=== PATIENT | female | born 1990 | race African-American/Black ===

== ENCOUNTER 2016-08-17 15:33 | Emergency (ER) | payer OTHER ==
[~2016-08-17] VITALS: Ht 154.9 cm; Wt 64.0 kg
[~2016-08-17 15:33] MED LIST: DOCU-27 PO; IBUP-1060 PO; NITR100C62 PO; OXYC-323 PO
--- NOTE | 2016-08-17 17:09 | RAD ---
Chest, 2 views, 08/17/2016: History: Pain The heart size and pulmonary vascularity are normal. No pulmonary infiltrates are seen. There is no evidence of pleural fluid. IMPRESSION: No acute cardiopulmonary abnormality is detected. Cervical spine, 3 views, 08/17/2016: No fracture or dislocation is identified. The intervertebral disc spaces are well-maintained. The prevertebral soft tissues are unremarkable. IMPRESSION: No significant cervical spine abnormality is detected.
[2016-08-17] MEDS ORDERED: CYCL10TA2 PO (17:26)
[2016-08-17] MEDS ORDERED: NAPR500T8 PO (17:26)
--- NOTE | 2016-08-17 17:27 | PHYS DOC ---
Past Medical History Past Medical History: No Pertinent History, STD Additional Past Medical Histor: gonorrhea Past Surgical History: , Tonsillectomy Alcohol Use: Occasionally Drug Use: None Adult General Chief Complaint Chief Complaint: BREAST PROBLEM HPI HPI Patient is a 26 year old female with no significant medical history who presents today with intermittent bilateral anterior neck pain and upper breast pain that has been going on for months. Patient denies anything exacerbating or making the pain worse or better. She states she is in the ED today to be checked out to make sure she does not have cancer to her neck or breast. Informed patient she may need to get mammograms of her breast if she is concerned about breast cancer. Informed patient that the most we have in the ED is probably a cervical spine x-ray which exposes her to radiation and cancer as well as a chest x-ray which does the same thing in terms of exposing her to cancer. Patient is requesting x-rays. Review of Systems Review of Systems Constitutional: Denies fever or chills [] Eyes: Denies change in visual acuity, redness, or eye pain [] HENT: Denies nasal congestion or sore throat [] Respiratory: Denies cough or shortness of breath [] Cardiovascular: No additional information not addressed in HPI [] GI: Denies abdominal pain, nausea, vomiting, bloody stools or diarrhea [] : Denies dysuria or hematuria [] Musculoskeletal: neck pain Integument:breast pain Neurologic: Denies headache, focal weakness or sensory changes [] Endocrine: Denies polyuria or polydipsia [] Allergies Allergies Allergies Coded Allergies Type Severity Reaction Last Updated Verified No Known Drug Allergies 11/22/14 No Physical Exam Physical Exam Constitutional: Well developed, well nourished, no acute distress, non-toxic appearance. [] HENT: Normocephalic, atraumatic, bilateral external ears normal, oropharynx moist, no oral exudates, nose normal. [] Eyes: PERRLA, EOMI, conjunctiva normal, no discharge. [] Neck: Normal range of motion, no tenderness, supple, no stridor. [] Cardiovascular:Heart rate regular rhythm, no murmur [] Lungs & Thorax: Bilateral breath sounds clear to auscultation [] Abdomen: Bowel sounds normal, soft, no tenderness, no masses, no pulsatile masses. [] Skin: Warm, dry, no erythema, no rash. [] Back: No tenderness, no CVA tenderness. [] Extremities: No tenderness, no cyanosis, no clubbing, ROM intact, no edema. [] Neurologic: Alert and oriented X 3, normal motor function, normal sensory function, no focal deficits noted. [] Psychologic: Affect normal, judgement normal, mood normal. [] Current Patient Data Vital Signs Vital Signs Date Time Temp Pulse Resp B/P Pulse Ox O2 Delivery O2 Flow Rate FiO2 08/17/16 16:12 97.7 100 16 98 Room Air 97.7 Lab Values Laboratory Tests Test 08/17/16 15:34 POC Urine HCG, Qualitative Hcg negative (Negative) EKG EKG [] Radiology/Procedures Radiology/Procedures [] Course & Med Decision Making Course & Med Decision Making Pertinent Labs and Imaging studies reviewed. (See chart for details) Patient is in the ED complaining of intermittent episodes of neck and breast pain. She would like to be checked for cancer. Informed patient we do not have any testing for cancer in the ED especially mammograms. 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 She is requesting x-rays of her neck and chest. Informed that the risk of x-rays in terms of exposing her to cancer. Patient is still requesting x-rays. Chest x-ray and cervical spine x-rays were done which were negative for any acute findings. Negative urine hCG. She is provided an OB/ [facility] doctor Fox and PCP list for follow up Marii Disclaimer Dragon Disclaimer This electronic medical record was generated, in whole or in part, using a voice recognition dictation system. Departure Departure Impression: Primary Impression: Neck pain, bilateral Additional Impression: Painful breasts Disposition: HOME, SELF-CARE Condition: STABLE Referrals: NO PCP (PCP) NO BRAXTON Jr, MD follow up with Dr. Braxton in one week and a primary care doctor Patient Instructions: Breast Tenderness Additional Instructions: You were seen for neck and breast pain. We highly recommend you follow-up with her primary care doctor for the neck pain and a primary care doctor for the breast pain. X-rays of your neck and chest were negative today. If you are concerned about cancer in the breast you need to see Dr. Braxton and he will order mammogram of the breast and a Primary care doctor for neck pain Scripts Naproxen 500 Mg Tablet.isis Tab PO BID #60 TAB Ref 1 Prov:KB SLATER APRN 08/17/16 Cyclobenzaprine Hcl 10 Mg Tablet1 Tab PO TID #30 TAB Prov:KB SLATER APRN 08/17/16 Problem Qualifiers KB SLATER APRN August 17, 2016 17:27
[2016-08-17 17:32] VITALS: BP 111/60
== END 2016-08-17 17:32 | disposition home or self-care (01) ==
LOC: ER 15:33
DX: M54.2 Cervicalgia (principal); N64.4 Mastodynia
CPT/HCPCS: 71020; 72040; 81025; 84703; 99284-25

== ENCOUNTER 2016-09-09 08:36 | Emergency (ER) | payer OTHER ==
[~2016-09-09] VITALS: Ht 154.9 cm; Wt 64.0 kg
[~2016-09-09 08:36] MED LIST changes: +CYCL10TA2 PO; +NAPR500T8 PO
[2016-09-09 08:42] VITALS: BP 116/67
[2016-09-09 08:58] LABS: BILIRUBIN,URINE NEGATIVE (NEG); GLUCOSE,URINE NEGATIVE (NEG); NITRITE,URINE NEGATIVE (NEG); PH,URINE 5.5; PROTEIN,URINE 30 mg/dL (NEG-TRACE); UROBILINOGEN,URINE 0.2 mg/dL (0.2 mg/dL)
--- NOTE | 2016-09-09 09:07 | PHYS DOC ---
Past Medical History Past Medical History: STD Additional Past Medical Histor: gonorrhea Past Surgical History: , Tonsillectomy Alcohol Use: Heavy Drug Use: None Adult General Chief Complaint Chief Complaint: ABDOMINAL PAIN HPI HPI Patient is a 26 year old female presents to the emergency department stating that she is having bilateral lower pelvic abdominal pain. She states that she started her menstrual cycle 2 days ago. She states this pain is very painful and discomfort involving although has not taken anything for the pain. She states the pain started this Tuesday when she was at work. She states that her boss should've called an ambulance because the pain is severe. Patient denies any urinary frequency urgency pain with urination. She denies any vaginal discharge other than her menstrual cycle. She does state that she is sexually active with one partner. Patient states that she has had STDs in the past, gonorrhea, Trichomonas. Patient denies any nausea vomiting she denies any urinary symptoms. Denies fever, or chills. Review of Systems Review of Systems Constitutional: Denies fever or chills [] Eyes: Denies change in visual acuity, redness, or eye pain [] HENT: Denies nasal congestion or sore throat [] Respiratory: Denies cough or shortness of breath [] Cardiovascular: No additional information not addressed in HPI [] GI:lower pelvic/abdominal pain, denies nausea, vomiting, bloody stools or diarrhea [] : Denies dysuria or hematuria [] Musculoskeletal: Denies back pain or joint pain [] Integument: Denies rash or skin lesions [] Neurologic: Denies headache, focal weakness or sensory changes [] Endocrine: Denies polyuria or polydipsia [] Current Medications Current Medications Current Medications Medications (Trade) Dose Ordered Sig/[facility] Start Time Stop Time Status Last Admin Dose Admin Azithromycin (Zithromax) 1,000 mg 1X ONCE 09/09/16 10:00 09/09/16 10:01 DC Ceftriaxone Sodium (Rocephin Im) 250 mg 1X ONCE 09/09/16 10:00 09/09/16 10:01 DC Metronidazole (Flagyl) 2,000 mg 1X ONCE 09/09/16 10:00 09/09/16 10:01 DC Naproxen (Naprosyn) 500 mg 1X ONCE 09/09/16 09:15 09/09/16 09:16 DC 09/09/16 09:23 500 MG Allergies Allergies Allergies Coded Allergies Type Severity Reaction Last Updated Verified No Known Drug Allergies 11/22/14 No Physical Exam Physical Exam Constitutional: Well developed, well nourished, no acute distress, non-toxic appearance. [] HENT: Normocephalic, atraumatic, bilateral external ears normal, oropharynx moist, no oral exudates, nose normal. [] Eyes: PERRLA, EOMI, conjunctiva normal, no discharge. [] Neck: Normal range of motion, no tenderness, supple, no stridor. [] Cardiovascular:Heart rate regular rhythm, no murmur [] Lungs & Thorax: Bilateral breath sounds clear to auscultation [] Abdomen: Bowel sounds hypoactive soft, bilateral lower abdominal tenderness, no masses, no pulsatile masses. [] Skin: Warm, dry, no erythema, no rash. [] Back: No tenderness Extremities: No tenderness, no cyanosis, no clubbing, ROM intact, no edema. [] Neurologic: Alert and oriented X 3, normal motor function, normal sensory function, no focal deficits noted. [] Psychologic: Affect normal, judgement normal, mood normal. [] Vaginal exam: speculum exam minimal to scant bleeding in the vaginal vault. Manual exam: bilateral adnexal tenderness noted. No CMT noted. Current Patient Data Vital Signs Vital Signs Date Time Temp Pulse Resp B/P (MAP) Pulse Ox O2 Delivery O2 Flow Rate FiO2 09/09/16 08:42 97.5 88 18 116/67 (83) 99 Room Air 97.5 Lab Values Laboratory Tests Test 09/09/16 08:10 Urine Collection Type Unknown Urine Color Yellow Urine Clarity Cloudy Urine pH 5.5 Urine Specific [place] 1.025 Urine Protein 30 mg/dL (NEG-TRACE) Urine Glucose (UA) Negative mg/dL (NEG) Urine Ketones (Stick) Negative mg/dL (NEG) Urine Blood Large (NEG) Urine Nitrite Negative (NEG) Urine Bilirubin Negative (NEG) Urine Urobilinogen Dipstick 0.2 mg/dL (0.2 mg/dL) Urine Leukocyte Esterase Moderate (NEG) Urine RBC Tntc /HPF (0-2) Urine WBC 5-10 /HPF (0-4) Urine Squamous Epithelial Cells Mod /LPF Urine Bacteria Mod /HPF (0-FEW) Urine Mucus Mod /LPF Microbiology 09/09/16 Wet Prep - Final, Complete EKG EKG [] Radiology/Procedures Radiology/Procedures [] Course & Med Decision Making Course & Med Decision Making Pertinent Labs and Imaging studies reviewed. (See chart for details) Patients urine was positive for urinary tract infection. However was contaminated she will still be placed on antibiotics. Patient's wet prep was positive for Trichomonas. Patient states she was also concern for sexual transmitted infections. She was treated with Rocephin, Flagyl and Zithromax here in the emergency department. Patient will be discharged home with doxycycline as well as she has bilateral adnexal tenderness. We'll be treating her for PID. Patient will be discharged home in stable condition with signs and symptoms to return back to emergency department. Patient was instructed to refrain from sexual intercourse for the next 2 weeks. She was also instructed to use condoms whenever having sexual intercourse to prevent sexually transmitted infections. Patient will be provided with a prescription for naproxen in which she can take for pain and discomfort. [] Dragon Disclaimer Dragon Disclaimer This electronic medical record was generated, in whole or in part, using a voice recognition dictation system. Departure Departure Impression: Primary Impression: Trichomonas infection Additional Impressions: UTI (urinary tract infection) PID (acute pelvic inflammatory disease) Disposition: 01 HOME, SELF-CARE Condition: STABLE Referrals: NO PCP (PCP) Patient Instructions: Pelvic Inflammatory Disease, [id number], Sexually Transmitted Disease, [id number], Trichomoniasis-Brief, Urinary Tract Infection , [id number] Additional Instructions: Activity as tolerated Medications as prescribed Naproxen should be taken with food to prevent upset stomach Refrain from sexual intercourse for 2 weeks Use condoms when having sex this will prevent sexually transmission infections Drink plenty of fluids such as water and cranberry juice Avoid cranberry juice cocktail, carbonated beverages, caffeine, alcohol and citrus fruits as these are considered irritants to the bladder You should contact you sexual partner and let him know that you are being treated for sexual transmitted infections and he needs to be treated as well. You will need to wait to have sex with him for 2 weeks after he has been treated Followup with primary care provider in 7-10 days Return to emergency department as needed for signs and symptoms that become worse. Scripts Doxycycline Hyclate (DOXYCYCLINE HYCLATE) 100 Mg Capsule 1 CAP PO BID, #28 CAP Prov: ADARSH CHARLES APRN 09/09/16 Nitrofurantoin Monohyd/M-Cryst (MACROBID 100 MG CAPSULE) 100 Mg Capsule 1 CAP PO BID, #14 CAP Prov: ADARSH CHARLES APRN 09/09/16 Naproxen (NAPROXEN) 500 Mg Tablet 1 TAB PO BID, #60 TAB Prov: ADARSH CHARLES APRN 09/09/16 Problem Qualifiers ADARSH CHARLES APRN September 09, 2016 09:07
[2016-09-09 09:15] LABS: BACTERIA,URINE MOD /HPF (0-FEW); RBC,URINE TNTC /HPF (0-2); SQUAMOUS EPITHELIAL CELL,UR MOD /LPF
[2016-09-09] MEDS ORDERED: NAPROXEN 500 MG TABLET PO ONE (09:15)
[2016-09-09] MEDS ORDERED: cefTRIAXone IM 250 MG VIAL IM ONE (10:00)
[2016-09-09] MEDS ORDERED: metroNIDAZOLE 500 MG TABLET PO ONE (10:00)
[2016-09-09] MEDS ORDERED: AZITHROMYCIN 250 MG TABLET. PO ONE (10:00)
[2016-09-09] MEDS ORDERED: NAPR500T3 PO (10:11)
[2016-09-09] MEDS ORDERED: NITR100C62 PO (10:11)
[2016-09-09] MEDS ORDERED: DOXY100C2 PO (10:12)
== END 2016-09-09 10:20 | disposition home or self-care (01) ==
LOC: ER 08:36
DX: N73.9 Female pelvic inflammatory disease, unspecified (principal); N39.0 Urinary tract infection, site not specified; A59.9 Trichomoniasis, unspecified
CPT/HCPCS: 81001; 87491; 87591; 96372; 99284; J0696; Q0111; Q0144

== ENCOUNTER → 2017-01-27 | Outpatient (CLI) | payer OTHER ==
[~2017-01-27] MED LIST changes: +DOCU-109 PO; -DOCU-27 PO; +DOXY100C2 PO; +NAPR500T4 PO
--- NOTE | 2017-01-27 15:46 | RAD ---
Indication size and date discrepancy. Obstetrical ultrasound examination was performed. No prior pelvic ultrasound examination is available associated with this . There is a single, viable, IUP. heart rate of 157 was documented. The biparietal diameter of 4.4 cm, head circumference of 16.7 cm, abdominal circumference of 14.4 cm and femoral length of 3.5 cm are compatible with a gestational age of approximately 20 weeks. By sonographic analysis the expected date of confinement is 06/16/2012. The estimated weight is approximately 340 g.. Current presentation is variable. The amount of amniotic fluid appears normal. The placenta is predominantly anterior. The cervical length is estimated at approximately 3.5 cm. There was a 4 chambered heart. The spine appeared normal. There was a three-vessel cord. The kidneys urinary bladder and extremities appeared grossly normal. No definite anomalies were seen.. IMPRESSION: Single viable intrauterine fetus of approximately 20 weeks gestation.
== END | disposition home or self-care (01) ==
LOC: US 15:11
PROVIDERS: ATTEND Obstetrics & Gynecology
DX: O26.842 Uterine size-date discrepancy, second trimester (principal); Z3A.20 20 weeks gestation of pregnancy
CPT/HCPCS: 76805

== ENCOUNTER 2017-02-06 12:36 | Observation (INO) | payer OTHER ==
[2017-02-06] MEDS ORDERED: IV RINGERS,LACTATED 500ML 500 ML IV PRN (13:00)
[2017-02-06 13:25] LABS: BARBITURATES NEG (NEG); BENZODIAZEPINES NEG (NEG); CANNABINOIDS NEG (NEG); COCAINE NEG (NEG); METHADONE NEG (NEG); OPIATES NEG (NEG); PHENCYCLIDINE NEG (NEG)
[2017-02-06 13:25] LABS: BILIRUBIN,URINE NEGATIVE (NEG); GLUCOSE,URINE NEGATIVE (NEG); NITRITE,URINE NEGATIVE (NEG); PH,URINE 6.5; PROTEIN,URINE NEGATIVE (NEG-TRACE)
[2017-02-06 13:26] LABS: BACTERIA,URINE FEW /HPF (0-FEW); SQUAMOUS EPITHELIAL CELL,UR MANY /LPF
== END 2017-02-06 14:15 | disposition home or self-care (01) ==
LOC: 3 SO LND 12:36
PROVIDERS: ADMIT Obstetrics & Gynecology; ATTEND Obstetrics & Gynecology
DX: O46.92 Antepartum hemorrhage, unspecified, second trimester (principal); O26.892 Other specified pregnancy related conditions, second trimester; R10.9 Unspecified abdominal pain; Z3A.21 21 weeks gestation of pregnancy
CPT/HCPCS: 80307; 81001; 87086; G0378; G0379; G0479

== ENCOUNTER 2017-04-03 09:56 | Observation (INO) | payer OTHER ==
[2017-04-03 11:33] LABS: BILIRUBIN,URINE NEGATIVE (NEG); GLUCOSE,URINE NEGATIVE (NEG); NITRITE,URINE NEGATIVE (NEG); PH,URINE 7.5; PROTEIN,URINE NEGATIVE (NEG-TRACE); UROBILINOGEN,URINE 0.2 mg/dL (0.2 mg/dL)
[2017-04-03 11:36] LABS: SQUAMOUS EPITHELIAL CELL,UR MANY /LPF
[2017-04-03 11:37] LABS: BACTERIA,URINE MANY /HPF (0-FEW); RBC,URINE 0 /HPF (0-2); WBC,URINE 20-40 /HPF (0-4)
== END 2017-04-03 12:12 | disposition home or self-care (01) ==
LOC: 3 SO LND 09:56
PROVIDERS: ADMIT Obstetrics & Gynecology; ATTEND Obstetrics & Gynecology
DX: O62.9 Abnormality of forces of labor, unspecified (principal); Z3A.29 29 weeks gestation of pregnancy
CPT/HCPCS: 81001; 87086; G0378; G0379

== ENCOUNTER → 2017-04-13 | Outpatient (CLI) | payer OTHER | END | disposition home or self-care (01) | LOC: LAB 09:41 | PROVIDERS: ATTEND Obstetrics & Gynecology | DX: O09.90 Supervision of high risk pregnancy, unspecified, unspecified trimester (principal); Z3A.00 Weeks of gestation of pregnancy not specified | CPT/HCPCS: 36415; 82947; 82950 ==

== ENCOUNTER 2018-01-14 14:16 | Emergency (ER) | payer OTHER ==
[~2018-01-14] VITALS: Ht 157.5 cm; Wt 65.3 kg
[~2018-01-14 14:16] MED LIST changes: +NAPR-514 PO; -NAPR500T4 PO
[2018-01-14 14:30] VITALS: BP 109/58
[2018-01-14] MEDS ORDERED: PRED50TA PO (15:09)
[2018-01-14] MEDS ORDERED: AMOX500T PO (15:09)
--- NOTE | 2018-01-14 15:09 | PHYS DOC ---
Past Medical History Past Medical History: STD Additional Past Medical Histor: gonorrhea, herpes Past Surgical History: , Tonsillectomy Alcohol Use: Heavy Drug Use: None Adult General Chief Complaint Chief Complaint: SORE THROAT HPI HPI Patient is a 27 year old female who presents with sore throat and bilateral ear ringing since yesterday. Patient denies any fever coughing or congestion. Review of Systems Review of Systems Constitutional: Denies fever or chills [] Eyes: Denies change in visual acuity, redness, or eye pain [] HENT: Reports sore throat. Reports bilateral ear ringing. Denies nasal congestion Respiratory: Denies cough or shortness of breath [] Cardiovascular: No additional information not addressed in HPI [] GI: Denies abdominal pain, nausea, vomiting, bloody stools or diarrhea [] : Denies dysuria or hematuria [] Musculoskeletal: Denies back pain or joint pain [] Integument: Denies rash or skin lesions [] Neurologic: Denies headache, focal weakness or sensory changes [] All other systems were reviewed and found to be within normal limits, except as documented in this note. Allergies Allergies Allergies Coded Allergies Type Severity Reaction Last Updated Verified No Known Drug Allergies 11/22/14 No Physical Exam Physical Exam Constitutional: Well developed, well nourished, no acute distress, non-toxic appearance. [] HENT: Normocephalic, atraumatic, bilateral external ears normal, oropharynx moist, no oral exudates, nose normal. [] Bilateral ear canals with mild cerumen, both TMs can be visualized. The left arm appears erythematous, the right one is also erythematous. Small amount of fluid in the left TM. Eyes: PERRLA, EOMI, conjunctiva normal, no discharge. [] Neck: Normal range of motion, no tenderness, supple, no stridor. [] Cardiovascular:Heart rate regular rhythm, no murmur [] Lungs & Thorax: Bilateral breath sounds clear to auscultation [] Abdomen: Bowel sounds normal, soft, no tenderness, no masses, no pulsatile masses. [] Skin: Warm, dry, no erythema, no rash. [] Back: No tenderness, no CVA tenderness. [] Extremities: No tenderness, no cyanosis, no clubbing, ROM intact, no edema. [] Neurologic: Alert and oriented X 3, normal motor function, normal sensory function, no focal deficits noted. [] Psychologic: Affect normal, judgement normal, mood normal. [] Current Patient Data Vital Signs Vital Signs Date Time Temp Pulse Resp B/P (MAP) Pulse Ox O2 Delivery O2 Flow Rate FiO2 01/14/18 14:30 98.3 110 20 109/58 (75) 97 Room Air 98.3 EKG EKG [] Radiology/Procedures Radiology/Procedures [] Course & Med Decision Making Course & Med Decision Making Pertinent Labs and Imaging studies reviewed. (See chart for details) Patient has acute pharyngitis and otitis media. Will be discharged with amoxicillin for 10 days. Tylenol/ Motrin for pain or fever. Saltwater gargles also recommended. Follow-up with primary care doctor in 1-2 weeks as needed. Dragon Disclaimer Dragon Disclaimer This electronic medical record was generated, in whole or in part, using a voice recognition dictation system. Departure Departure Impression: Primary Impression: Otitis media Additional Impressions: Acute pharyngitis Cerumen impaction Disposition: 01 HOME, SELF-CARE Condition: STABLE Referrals: NO PCP (PCP) Follow-up in 1-2 weeks Patient Instructions: Cerumen Impaction-SportsMed, Otitis Media, Adult, Viral and Bacterial Pharyngitis Additional Instructions: You were seen for an ear and throat infection. Ensure you complete your antibiotics. Take Tylenol/ Motrin for pain or fever. Also complete your prednisone. Use [id number] cerumen removal a stapleton Debrox to remove the earwax in your ears. Scripts Amoxicillin (AMOXICILLIN) 500 Mg Tablet 1 TAB PO TID, #30 TAB Prov: MUTELICIAAKB DATA COMPILER 01/14/18 Prednisone (PREDNISONE) 50 Mg Tablet 1 TAB PO DAILY, #5 TAB Prov: MUTUNGAKB DATA COMPILER 01/14/18 Problem Qualifiers Primary Impression: Otitis media Otitis media type: other nonsuppurative Chronicity: acute Laterality: bilateral Recurrence: not specified as recurrent Qualified Codes: H65.193 - Other acute nonsuppurative otitis media, bilateral Additional Impressions: Acute pharyngitis Pharyngitis/tonsillitis etiology: unspecified etiology Qualified Codes: J02.9 - Acute pharyngitis, unspecified Cerumen impaction Laterality: bilateral Qualified Codes: H61.23 - Impacted cerumen, bilateral MUTUNGA,KB OBRIEN Jan 14, 2018 15:09
== END 2018-01-14 15:20 | disposition home or self-care (01) ==
LOC: ER 14:16
DX: J02.9 Acute pharyngitis, unspecified (principal); H61.23 Impacted cerumen, bilateral; H66.93 Otitis media, unspecified, bilateral
CPT/HCPCS: 99283

== ENCOUNTER 2018-01-27 09:58 | Emergency (ER) | payer OTHER ==
[~2018-01-27] VITALS: Ht 157.5 cm; Wt 65.3 kg
[~2018-01-27 09:58] MED LIST changes: +AMOX500T PO; +PRED50TA PO
[2018-01-27 10:05] VITALS: BP 109/58
[2018-01-27] MEDS ORDERED: HYDROcodone/APAP 5/325MG 1 TAB TABLET PO ONE (10:30)
[2018-01-27] MEDS ORDERED: IBUPROFEN 600 MG TABLET. PO ONE (10:30)
[2018-01-27] MEDS ORDERED: LIDOCAINE 1% PF 2 ML VIAL. INJ ONE (10:30)
[2018-01-27] MEDS ORDERED: HYDR-971 PO (10:42)
[2018-01-27] MEDS ORDERED: SULF1TAB24 PO (10:42)
--- NOTE | 2018-01-27 10:45 | PHYS DOC ---
Past Medical History Past Medical History: STD Additional Past Medical Histor: gonorrhea, herpes Past Surgical History: , Tonsillectomy Alcohol Use: Heavy Drug Use: None Adult General Chief Complaint Chief Complaint: ABSCESS HPI HPI 27-year-old female presents to ER with complaints of possible abscess on rt side buttock which started 2 days ago and gradually worsened. Patient is fever or chills, nausea or vomiting, change in bowel pattern, or urinary symptoms. Patient denies any [id number] medications today for pain. Pt denies continence of bowel or bladder, saddle anesthesia, or numbness and tingling in bilateral lower extremities. Review of Systems Review of Systems Constitutional: Denies fever or chills [] Eyes: Denies change in visual acuity, redness, or eye pain [] HENT: Denies nasal congestion or sore throat [] Respiratory: Denies cough or shortness of breath [] Cardiovascular: No additional information not addressed in HPI [] GI: Denies abdominal pain, nausea, vomiting, bloody stools or diarrhea [] : Denies dysuria or hematuria [] Musculoskeletal: Denies back pain or joint pain [] Integument: Denies rash or skin lesions [] Neurologic: Denies headache, focal weakness or sensory changes [] Endocrine: Denies polyuria or polydipsia [] All other systems were reviewed and found to be within normal limits, except as documented in this note. Current Medications Current Medications Current Medications Medications (Trade) Dose Ordered Sig/Carl Start Time Stop Time Status Last Admin Dose Admin Acetaminophen/ Hydrocodone Bitart (Lortab 5/325) 1 tab 1X ONCE 01/27/18 10:30 01/27/18 10:31 DC 01/27/18 10:29 1 TAB Ibuprofen (Motrin) 600 mg 1X ONCE 01/27/18 10:30 01/27/18 10:31 DC 01/27/18 10:28 600 MG Lidocaine HCl (Xylocaine-Mpf 1% 2ml Vial) 4 ml 1X ONCE 01/27/18 10:30 01/27/18 10:31 DC 01/27/18 10:28 4 ML Allergies Allergies Allergies Coded Allergies Type Severity Reaction Last Updated Verified No Known Drug Allergies 11/22/14 No Physical Exam Physical Exam Constitutional: Well developed, well nourished, no acute distress, non-toxic appearance. [] HENT: Normocephalic, atraumatic, bilateral external ears normal, oropharynx moist, no oral exudates, nose normal. [] Eyes: PERRLA, EOMI, conjunctiva normal, no discharge. [] Neck: Normal range of motion, no tenderness, supple, no stridor. [] Cardiovascular:Heart rate regular rhythm, no murmur [] Lungs & Thorax: Bilateral breath sounds clear to auscultation [] Abdomen: Bowel sounds normal, soft, no tenderness, no masses, no pulsatile masses. [] Skin: Warm, dry, no erythema, no rash. [] Back: No tenderness, no CVA tenderness. [] Extremities: No tenderness, no cyanosis, no clubbing, ROM intact, no edema. [] Neurologic: Alert and oriented X 3, normal motor function, normal sensory function, no focal deficits noted. [] Psychologic: Affect normal, judgement normal, mood normal. [] Current Patient Data Vital Signs Vital Signs Date Time Temp Pulse Resp B/P (MAP) Pulse Ox O2 Delivery O2 Flow Rate FiO2 01/27/18 10:05 97.6 110 20 109/58 (75) 97 Room Air 97.6 EKG EKG [] Radiology/Procedures Radiology/Procedures [] Course & Med Decision Making Course & Med Decision Making Dragon Disclaimer Dragon Disclaimer This electronic medical record was generated, in whole or in part, using a voice recognition dictation system. Departure Departure Impression: Primary Impression: Abscess Disposition: 01 HOME, SELF-CARE Condition: STABLE Referrals: NO PCP (PCP) Patient Instructions: Abscess, Incision and Drainage Additional Instructions: You need your wound re-evaluated in 24 hours for packing removal. Warm compress to area every 3-4 hours for 20-30 minutes. Avoid soaking in water with open wound. Ibuprofen as directed on container. Scripts Hydrocodone/Apap 5-325 (NORCO 5-325 TABLET) 1 Each Tablet 1 TAB PO PRN Q6HRS PRN for PAIN, #8 TAB 0 Refills Prov: ROSANNE STONER MULTIPLE CUT OFF SAW OPERATOR 01/27/18 Sulfamethoxazole/Trimethoprim (BACTRIM DS TABLET) 1 Each Tablet 1 TAB PO BID, #14 TAB 0 Refills Prov: ROSANNE STONER MULTIPLE CUT OFF SAW OPERATOR 01/27/18 Incision and Drainage Progress 1110 I&D performed by this provider-packing placed moderate amount of purulent drainage and wound culture was obtained. ROSANNE STONER APRN Jan 27, 2018 10:45
== END 2018-01-27 11:34 | disposition home or self-care (01) ==
LOC: ER 09:58
DX: L02.31 Cutaneous abscess of buttock (principal)
CPT/HCPCS: 10060; 87070; 99283-25; 99284-25

== ENCOUNTER 2018-01-28 20:20 | Emergency (ER) | payer OTHER ==
[~2018-01-28] VITALS: Ht 157.5 cm; Wt 65.3 kg
[~2018-01-28 20:20] MED LIST changes: +HYDR-971 PO; +SULF1TAB24 PO
[2018-01-28 20:45] VITALS: BP 114/72
--- NOTE | 2018-01-28 21:12 | PHYS DOC ---
Past Medical History Past Medical History: STD Additional Past Medical Histor: gonorrhea, herpes Past Surgical History: , Tonsillectomy Alcohol Use: Heavy Drug Use: None Adult General Chief Complaint Chief Complaint: WOUND CHECK HPI HPI Patient is a 27 year old female who presents to the emergency room with need for wound recheck. Patient states that she was seen in this ER yesterday morning and had an abscess on her right buttock drained. Patient states that she was instructed to return to the emergency room this evening to have the wound rechecked. Patient states that the area has continued to drain yellow pus but the packing is falling out. Patient states that the area does feel better than it did yesterday. She denies any fever or chills. Review of Systems Review of Systems Constitutional: Denies fever or chills [] Integument: Reports draining wound of right medial buttock Neurologic: Denies headache, focal weakness or sensory changes [] All other systems were reviewed and found to be within normal limits, except as documented in this note. Allergies Allergies Allergies Coded Allergies Type Severity Reaction Last Updated Verified No Known Drug Allergies 11/22/14 No Physical Exam Physical Exam Constitutional: Well developed, well nourished, no acute distress, non-toxic appearance. [] HENT: Normocephalic, atraumatic, bilateral external ears normal, nose normal. [] Eyes: PERRLA, conjunctiva normal, no discharge. [] Skin: Warm, dry, incised abscess of right medial buttock with packing falling out, no surrounding erythema Neurologic: Alert and oriented X 3, normal motor function, normal sensory function, no focal deficits noted. [] Psychologic: Affect normal, judgement normal, mood normal. [] Current Patient Data Vital Signs Vital Signs Date Time Temp Pulse Resp B/P (MAP) Pulse Ox O2 Delivery O2 Flow Rate FiO2 01/28/18 20:45 98.5 98 18 114/72 (86) 99 Room Air 98.5 EKG EKG [] Radiology/Procedures Radiology/Procedures [] Course & Med Decision Making Course & Med Decision Making Pertinent Labs and Imaging studies reviewed. (See chart for details) dx: Wound recheck, right buttock abscess Continue taking medications as prescribed. May apply warm moist packs to the area as needed to help relieve discomfort, also recommend warm sitz baths. Follow-up with your primary care doctor next week as instructed. Tylenol or ibuprofen as needed for pain. Return to the emergency room if her symptoms worsen. Patient verbalized an understanding of home care, medications, follow-up , and return to ED instructions and was in agreement with the plan of care. [] Dragon Disclaimer Dragon Disclaimer This electronic medical record was generated, in whole or in part, using a voice recognition dictation system. Departure Departure Impression: Primary Impression: Encounter for wound re-check Disposition: HOME, SELF-CARE Condition: STABLE Referrals: NO PCP (PCP) Patient Instructions: Abscess, Care After Additional Instructions: Continue taking medications as prescribed. May apply warm moist packs to the area as needed to help relieve discomfort, also recommend warm sitz baths. Follow-up with your primary care doctor next week as instructed. Tylenol or ibuprofen as needed for pain. Return to the emergency room if her symptoms worsen. [] BEATRICE HAYS APRN Jan 28, 2018 21:12
== END 2018-01-28 21:25 | disposition home or self-care (01) ==
LOC: ER 20:20
DX: L02.31 Cutaneous abscess of buttock (principal); F10.20 Alcohol dependence, uncomplicated
CPT/HCPCS: 99281

== ENCOUNTER 2018-09-02 15:54 | Emergency (ER) | payer OTHER, SELFPAY ==
[~2018-09-02] VITALS: Ht 160 cm; Wt 68.6 kg
[~2018-09-02 15:54] MED LIST changes: +HYDR-3164 PO; -HYDR-971 PO; -OXYC-323 PO; +OXYC1TAB15 PO
[2018-09-02 16:20] LABS: BILIRUBIN,URINE NEGATIVE (NEG); CLARITY,URINE CLEAR; COLOR,URINE YELLOW; NITRITE,URINE NEGATIVE (NEG); PROTEIN,URINE NEGATIVE (NEG-TRACE)
[2018-09-02 16:32] LABS: BARBITURATES NEG (NEG); BENZODIAZEPINES NEG (NEG); CANNABINOIDS NEG (NEG); COCAINE NEG (NEG); METHADONE NEG (NEG); OPIATES NEG (NEG); PHENCYCLIDINE NEG (NEG)
[2018-09-02 16:35] LABS: AMPHETAMINE/METHAMPHETAMINE NEG (NEG)
[2018-09-02 16:38] LABS: BASO # 0.1 x10^3/uL (0.0-0.2); BASO % 1 % (0-3); EOS # 0.2 x10^3/uL (0.0-0.7); EOS % 2 % (0-3); HEMATOCRIT 37.6 % (36.0-47.0); HEMOGLOBIN 12.6 g/dL (12.0-15.5); LYMPH # 1.9 x10^3/uL (1.0-4.8); LYMPH % 29 % (24-48); MEAN CORPUSCULAR HEMOGLOBIN 30 pg (25-35); MEAN CORPUSCULAR HGB CONC 34 g/dL (31-37); MEAN CORPUSCULAR VOLUME 88 fL (79-100); MONO # 0.5 x10^3/uL (0.0-1.1); MONO % 8 % (0-9); NEUT % 60 % (31-73); PLATELET COUNT 159 x10^3/uL (140-400); RED BLOOD COUNT 4.27 x10^6/uL (3.50-5.40); RED CELL DISTRIBUTION WIDTH 16.3 % (11.5-14.5); WHITE BLOOD COUNT 6.7 x10^3/uL (4.0-11.0)
[2018-09-02 16:42] LABS: BACTERIA,URINE MOD /HPF (0-FEW); RBC,URINE 0 /HPF (0-2); SQUAMOUS EPITHELIAL CELL,UR MANY /LPF
--- NOTE | 2018-09-02 16:42 | PHYS DOC ---
Past Medical History Past Medical History: STD Additional Past Medical Histor: gonorrhea, herpes (KB SLATER APRN) Past Surgical History: , Tonsillectomy (KB SLATER APRN) Alcohol Use: Heavy Drug Use: None (KB SLATER APRN) Adult General Chief Complaint Chief Complaint: VAGINAL BLEEDING [facility] HPI Patient is a 28 year old female 4 para 3 with one set of twins who presents to the ED today complaining of vaginal bleeding in . Patient states she is 5 weeks and started spotting today. She is also complaining of intermittent episode of mild low back pain radiating to the lower abdomen bilaterally. Denies any nausea vomiting. Denies any fever. Denies any concerns for STDs. (KB SLATER APRN) Review of Systems Review of Systems Constitutional: Denies fever or chills [] Eyes: Denies change in visual acuity, redness, or eye pain [] HENT: Denies nasal congestion or sore throat [] Respiratory: Denies cough or shortness of breath [] Cardiovascular: No additional information not addressed in HPI [] GI: Reports vaginal bleeding/spotting in , denies nausea, vomiting, bloody stools or diarrhea [] : Denies dysuria or hematuria [] Musculoskeletal: Reports low back pain Integument: Denies rash or skin lesions [] Neurologic: Denies headache, focal weakness or sensory changes [] All other systems were reviewed and found to be within normal limits, except as documented in this note. (KB SLATER APRN) Allergies Allergies Allergies Coded Allergies Type Severity Reaction Last Updated Verified No Known Drug Allergies 11/22/14 No (PREET YBARRA DO) Physical Exam Physical Exam Constitutional: Well developed, well nourished, no acute distress, non-toxic appearance. [] HENT: Normocephalic, atraumatic, bilateral external ears normal, oropharynx moist, no oral exudates, nose normal. [] Eyes: PERRLA, EOMI, conjunctiva normal, no discharge. [] Neck: Normal range of motion, no tenderness, supple, no stridor. [] Cardiovascular:Heart rate regular rhythm, no murmur [] Lungs & Thorax: Bilateral breath sounds clear to auscultation [] Abdomen: Bowel sounds normal, soft, no tenderness, no masses, no pulsatile masses. [] Pelvic exam External pelvic appears normal, cervix is visualized, closed, no CMT, no adnexal tenderness. No bleeding noted on pelvic exam. Skin: Warm, dry, no erythema, no rash. [] Back: No tenderness, no CVA tenderness. [] Extremities: No tenderness, no cyanosis, no clubbing, ROM intact, no edema. [] Neurologic: Alert and oriented X 3, normal motor function, normal sensory function, no focal deficits noted. [] Psychologic: Affect normal, judgement normal, mood normal. [] (KB SLATER APRN) Current Patient Data Vital Signs Vital Signs Date Time Temp Pulse Resp B/P (MAP) Pulse Ox O2 Delivery O2 Flow Rate FiO2 09/02/18 19:52 88 16 118/74 (89) 98 Room Air 09/02/18 16:20 97.9 97.9 (PREET YBARRA DO) Lab Values Laboratory Tests Test 09/02/18 16:04 09/02/18 16:15 09/02/18 16:28 Urine Collection Type Unknown Urine Color Yellow Urine Clarity Clear Urine pH 6.0 Urine Specific [place] >=1.030 Urine Protein Negative mg/dL (NEG-TRACE) Urine Glucose (UA) Negative mg/dL (NEG) Urine Ketones (Stick) Negative mg/dL (NEG) Urine Blood Negative (NEG) Urine Nitrite Negative (NEG) Urine Bilirubin Negative (NEG) Urine Urobilinogen Dipstick 1.0 mg/dL (0.2 mg/dL) Urine Leukocyte Esterase Small (NEG) Urine RBC 0 /HPF (0-2) Urine WBC 5-10 /HPF (0-4) Urine Squamous Epithelial Cells Many /LPF Urine Bacteria Mod /HPF (0-FEW) Urine Mucus Marked /LPF Urine Opiates Screen Neg (NEG) Urine Methadone Screen Neg (NEG) Urine Barbiturates Neg (NEG) Urine Phencyclidine Screen Neg (NEG) Urine Amphetamine/Methamphetamine Neg (NEG) Urine Benzodiazepines Screen Neg (NEG) Urine Cocaine Screen Neg (NEG) Urine Cannabinoids Screen Neg (NEG) Urine Ethyl Alcohol Neg (NEG) POC Urine HCG, Qualitative Hcg positive (Negative) White Blood Count 6.7 x10^3/uL (4.0-11.0) Red Blood Count 4.27 x10^6/uL (3.50-5.40) Hemoglobin 12.6 g/dL (12.0-15.5) Hematocrit 37.6 % (36.0-47.0) Mean Corpuscular Volume 88 fL (79-100) Mean Corpuscular Hemoglobin 30 pg (25-35) Mean Corpuscular Hemoglobin Concent 34 g/dL (31-37) Red Cell Distribution Width 16.3 % (11.5-14.5) H Platelet Count 159 x10^3/uL (140-400) Neutrophils (%) (Auto) 60 % (31-73) Lymphocytes (%) (Auto) 29 % (24-48) Monocytes (%) (Auto) 8 % (0-9) Eosinophils (%) (Auto) 2 % (0-3) Basophils (%) (Auto) 1 % (0-3) Neutrophils # (Auto) 4.0 x10^3uL (1.8-7.7) Lymphocytes # (Auto) 1.9 x10^3/uL (1.0-4.8) Monocytes # (Auto) 0.5 x10^3/uL (0.0-1.1) Eosinophils # (Auto) 0.2 x10^3/uL (0.0-0.7) Basophils # (Auto) 0.1 x10^3/uL (0.0-0.2) Maternal Serum HCG Beta Subunit 59567 mIU/mL (0-5) H Sodium Level 138 mmol/L (136-145) Potassium Level 3.6 mmol/L (3.5-5.1) Chloride Level 103 mmol/L (98-107) Carbon Dioxide Level 23 mmol/L (21-32) Anion Gap 12 (6-14) Blood Urea Nitrogen 11 mg/dL (7-20) Creatinine 0.7 mg/dL (0.6-1.0) Estimated GFR (Cockcroft-Gault) 122.4 BUN/Creatinine Ratio 16 (6-20) Glucose Level 96 mg/dL (70-99) Calcium Level 9.0 mg/dL (8.5-10.1) Total Bilirubin 0.1 mg/dL (0.2-1.0) L Aspartate Amino Transferase (AST) 30 U/L (15-37) Alanine Aminotransferase (ALT) 52 U/L (14-59) Alkaline Phosphatase 76 U/L (46-116) Total Protein 7.4 g/dL (6.4-8.2) Albumin 3.5 g/dL (3.4-5.0) Albumin/Globulin Ratio 0.9 (1.0-1.7) L Ethyl Alcohol Level < 10 mg/dL (0-10) Laboratory Tests 09/02/18 16:28 Laboratory Tests 09/02/18 16:28 Microbiology 09/02/18 Wet Prep - Final, Complete (PREET YBARRA DO) EKG EKG [] (KB SLATER APRN) Radiology/Procedures Radiology/Procedures []PROCEDURE: OB <14 WKS W/TV INDICATION: Abdominal pain in COMPARISON: None. TECHNIQUE: Grayscale and color ultrasound images uterus and adnexa. Transabdominal and transvaginal images obtained. FINDINGS: Uterus: 100 x 70 x 70 mm. There is 2 suspected gestational sac seen within the endometrium. One of them contains a yolk sac measuring 3 mm. There is a suspected early pole measuring 3 mm. A definite pole is not seen in the second possible gestational sac with some low-level internal echoes within. Hypoechoic region within the subchorionic area measuring approximately 16 x 10 mm. 10 mm probable nabothian cyst. Right Ovary: 34 x 23 x 22 mm. 20 x 18 mm hypoechoic mass within Left Ovary: 32 x 27 x 23 mm. Suspected 20 mm hypoechoic mass within. Vascular flow identified to bilateral ovaries. IMPRESSION: 1. There are 2 cystic structures within the endometrium one of these is likely secondary to a gestational sac and the other could be an additional gestational sac but no definite pole or yolk sac is seen in the second at this time. One of them contains a yolk sac and a possible early pole. It is likely too early in to adequately assess whether there is a heartbeat and a follow-up could be obtained to ensure appropriate development of a heartbeat and to assess whether a pole develops in the possible second gestational sac. 2. Hypoechoic region at the endometrium. Could be from a subchorionic hematoma. 3. Suspected hypoechoic lesions at the bilateral ovaries. Could be from causes such as hemorrhagic cyst with other causes such as endometrioma also within the differential and follow-up could be obtained to ensure no increase in this finding. Electronically signed by: Sue Weber MD (09/02/2018 6:28 PM) [id number] DICTATED and SIGNED BY: SUE WEBER MD DATE: 09/02/181827 (KB SLATER APRN) Course & Med Decision Making Course & Med Decision Making Pertinent Labs and Imaging studies reviewed. (See chart for details) This is a 28-year-old female patient 4 para 3 with one set of twins presented to the ED today complaining of vaginal spotting in as well as intermittent lower abdominal pain and back pain, symptoms began today. Blood group O+ Positive urine hCG, beta hCG 30,392. Urine analysis is positive for small amount of leukocytes bite appears contaminated. We will treat this patient because of her current symptoms. Wet prep is noted for BV, discharged on Flagyl. OB ultrasound-There are 2 cystic structures within the endometrium one of these is likely secondary to a gestational sac and the other could be an additional gestational sac but no definite pole or yolk sac is seen in the second at this time. One of them contains a yolk sac and a possible early pole. It is likely too early in to adequately assess whether there is a heartbeat and a follow-up could be obtained to ensure appropriate development of heartbeat and to assess whether a pole develops in the possible second gestational sac. Hypoechoic region at the endometrium. Could be from a subchorionic hematoma. Suspected hypoechoic lesions at the bilateral ovaries. Could be from causes such as hemorrhagic cyst with other causes such as endometrioma also within the differential and follow-up could be obtained to ensure no increase in this finding. Considering patient's beta hCG of 30,392 at 5 weeks she likely has twins. He was also communicated to patient. She has an GRUBBER, she was instructed to maintain bedrest/pelvic rest. Follow-up on Tuesday. (KB SLATER APRN) Dragon Disclaimer Dragon Disclaimer This electronic medical record was generated, in whole or in part, using a voice recognition dictation system. (KB SLATER APRN) Departure Departure Impression: Primary Impression: UTI (lower urinary tract infection) Additional Impressions: Bacterial vaginosis Threatened Disposition: HOME, SELF-CARE Condition: STABLE Referrals: NO PCP (PCP) MIKE RAMOS MD follow up next week Patient Instructions: Bacterial Vaginosis, [id number], - Urinary Tract Infection, Threatened Miscarriage, [id number] Additional Instructions: You were evaluated in the emergency room, you were treated for urinary tract infection and bacterial vaginosis, complete your antibiotics. Please follow-up with your GRUBBER on Tuesday. Maintain bedrest, no strenuous activities, no sex. Come back to the ED at any point symptoms worsen. Scripts Cephalexin (CEPHALEXIN) 500 Mg Tablet 1 TAB PO BID, #14 TAB Prov: KB SLATER APRN 09/02/18 Metronidazole (FLAGYL) 500 Mg Tablet 1 TAB PO BID, #14 TAB Prov: KB SLATER APRN 09/02/18 Attending Signature Attending Signature I have reviewed the PA/DESIGN DIRECTOR's note and plan of care. I was available for consultation as needed during the patient's visit in the emergency department. I agree with the clinical impression, plan, and disposition. (PREET YBARRA DO) Problem Qualifiers Additional Impressions: Weeks of gestation: less than 8 weeks Qualified Codes: Z3A.01 - Less than 8 weeks gestation of KB SLATER APRN September 02, 2018 16:42 PREET YBARRA DO September 03, 2018 05:11
[2018-09-02 16:50] LABS: CREATININE 0.7 mg/dL (0.6-1.0); GFR 122.4; POTASSIUM 3.6 mmol/L (3.5-5.1)
[2018-09-02 16:56] LABS: ALBUMIN 3.5 g/dL (3.4-5.0); ALBUMIN/GLOBULIN RATIO 0.9 (1.0-1.7); TOTAL BILIRUBIN 0.1 mg/dL (0.2-1.0); TOTAL PROTEIN 7.4 g/dL (6.4-8.2)
--- NOTE | 2018-09-02 18:31 | RAD ---
INDICATION: Abdominal pain in COMPARISON: None. TECHNIQUE: Grayscale and color ultrasound images uterus and adnexa. Transabdominal and transvaginal images obtained. FINDINGS: Uterus: 100 x 70 x 70 mm. There is 2 suspected gestational sac seen within the endometrium. One of them contains a yolk sac measuring 3 mm. There is a suspected early pole measuring 3 mm. A definite pole is not seen in the second possible gestational sac with some low-level internal echoes within. Hypoechoic region within the subchorionic area measuring approximately 16 x 10 mm. 10 mm probable nabothian cyst. Right Ovary: 34 x 23 x 22 mm. 20 x 18 mm hypoechoic mass within Left Ovary: 32 x 27 x 23 mm. Suspected 20 mm hypoechoic mass within. Vascular flow identified to bilateral ovaries. IMPRESSION: 1. There are 2 cystic structures within the endometrium one of these is likely secondary to a gestational sac and the other could be an additional gestational sac but no definite pole or yolk sac is seen in the second at this time. One of them contains a yolk sac and a possible early pole. It is likely too early in to adequately assess whether there is a heartbeat and a follow-up could be obtained to ensure appropriate development of a heartbeat and to assess whether a pole develops in the possible second gestational sac. 2. Hypoechoic region at the endometrium. Could be from a subchorionic hematoma. 3. Suspected hypoechoic lesions at the bilateral ovaries. Could be from causes such as hemorrhagic cyst with other causes such as endometrioma also within the differential and follow-up could be obtained to ensure no increase in this finding. Electronically signed by: Stevie Jackson MD (09/02/2018 6:28 PM) [id number]
[2018-09-02] MEDS ORDERED: CEPH500T PO (19:33)
[2018-09-02] MEDS ORDERED: METR500T PO (19:33)
[2018-09-02 19:52] VITALS: BP 118/74
[2018-09-04 14:11] LABS: GC PROBE Negative (Negative)
== END 2018-09-02 19:52 | disposition home or self-care (01) ==
LOC: ER 15:54
DX: O20.0 Threatened abortion (principal); O23.41 Unspecified infection of urinary tract in pregnancy, first trimester; O23.591 Infection of other part of genital tract in pregnancy, first trimester; B96.89 Other specified bacterial agents as the cause of diseases classified elsewhere; O99.311 Alcohol use complicating pregnancy, first trimester; Z3A.01 Less than 8 weeks gestation of pregnancy
CPT/HCPCS: 36415; 76801; 76817; 80053; 80307; 81001; 81025; 84702; 85025; 87491; 87591; 99285; G0480; Q0111

== ENCOUNTER 2018-09-05 08:05 | Emergency (ER) | payer OTHER ==
[~2018-09-05] VITALS: Ht 157.5 cm; Wt 69.4 kg
[~2018-09-05 08:05] MED LIST changes: +CEPH500T PO; +METR500T PO
[2018-09-05 08:49] LABS: BILIRUBIN,URINE NEGATIVE (NEG); CLARITY,URINE CLEAR; COLOR,URINE YELLOW; NITRITE,URINE NEGATIVE (NEG); PH,URINE 5.5; PROTEIN,URINE NEGATIVE (NEG-TRACE)
[2018-09-05 08:55] LABS: BACTERIA,URINE MODERATE /HPF (0-FEW); SQUAMOUS EPITHELIAL CELL,UR MANY /LPF
[2018-09-05 09:05] LABS: BASO # 0.1 x10^3/uL (0.0-0.2); BASO % 1 % (0-3); EOS # 0.1 x10^3/uL (0.0-0.7); EOS % 2 % (0-3); HEMATOCRIT 37.9 % (36.0-47.0); HEMOGLOBIN 12.4 g/dL (12.0-15.5); LYMPH # 1.8 x10^3/uL (1.0-4.8); LYMPH % 31 % (24-48); MEAN CORPUSCULAR HEMOGLOBIN 29 pg (25-35); MEAN CORPUSCULAR HGB CONC 33 g/dL (31-37); MEAN CORPUSCULAR VOLUME 88 fL (79-100); MONO # 0.3 x10^3/uL (0.0-1.1); MONO % 6 % (0-9); NEUT # 3.5 x10^3uL (1.8-7.7); NEUT % 60 % (31-73); PLATELET COUNT 150 x10^3/uL (140-400); RED BLOOD COUNT 4.31 x10^6/uL (3.50-5.40); RED CELL DISTRIBUTION WIDTH 16.4 % (11.5-14.5); WHITE BLOOD COUNT 5.8 x10^3/uL (4.0-11.0)
[2018-09-05 09:16] LABS: PROTHROMBIN TIME PATIENT 13.3 SEC (11.7-14.0)
[2018-09-05 09:29] LABS: CALCIUM 8.8 mg/dL (8.5-10.1); CREATININE 0.5 mg/dL (0.6-1.0); GFR 180.5
[2018-09-05 09:36] LABS: ALBUMIN 3.4 g/dL (3.4-5.0); ALBUMIN/GLOBULIN RATIO 0.9 (1.0-1.7); TOTAL BILIRUBIN 0.2 mg/dL (0.2-1.0); TOTAL PROTEIN 7.4 g/dL (6.4-8.2)
[2018-09-05] MEDS ORDERED: IV NORMAL SALINE 1000ML BAG 1,000 ML IV ONE (10:00)
[2018-09-05] MEDS ORDERED: cefTRIAXone IV Push 1 GM VIAL. IVP ONE (10:00)
--- NOTE | 2018-09-05 10:12 | PHYS DOC ---
Past Medical History Past Medical History: STD Additional Past Medical Histor: gonorrhea, herpes Past Surgical History: , Tonsillectomy Additional Information: 4-5 cigarettes daily Alcohol Use: None Additional Information: denies Drug Use: None Social History Narrative: denies Adult General Chief Complaint Chief Complaint: VAGINAL BLEEDING HPI HPI Patient is a 28 year old male presented to ER today for evaluation of vaginal spotting. Patient says he is about 5-6 weeks . Her last menstrual period was on July 26. Patient was seen here on the for the same problem, pelvic examination at that time did not show any blood in her pelvic area, her cervix was closed. Ultrasound show possible two sacs inside her uterus consistent with twin . However there was no heart tone. Patient already had been twin in the past. Patient denies any abdominal pain, no nausea vomiting. Patient says she did not pass a lot of clot at home only some spotting. She denies any pain or fever at this time. Review of Systems Review of Systems Constitutional: Denies fever or chills [] Eyes: Denies change in visual acuity, redness, or eye pain [] HENT: Denies nasal congestion or sore throat [] Respiratory: Denies cough or shortness of breath [] Cardiovascular: No additional information not addressed in HPI [] GI: Denies abdominal pain, nausea, vomiting, bloody stools or diarrhea [] : Positive for Vaginal bleeding Musculoskeletal: Denies back pain or joint pain [] Integument: Denies rash or skin lesions [] Neurologic: Denies headache, focal weakness or sensory changes [] Endocrine: Denies polyuria or polydipsia [] All other systems were reviewed and found to be within normal limits, except as documented in this note. Current Medications Current Medications Current Medications Medications (Trade) Dose Ordered Sig/Carl Start Time Stop Time Status Last Admin Dose Admin Ceftriaxone Sodium (Rocephin) 1 gm 1X ONCE 09/05/18 10:00 09/05/18 10:01 DC 09/05/18 10:09 1 GM Sodium Chloride 1,000 ml @ 1,000 mls/hr 1X ONCE 09/05/18 10:00 09/05/18 10:52 DC 09/05/18 10:09 1,000 MLS/HR Allergies Allergies Allergies Coded Allergies Type Severity Reaction Last Updated Verified No Known Drug Allergies 11/22/14 No Physical Exam Physical Exam Constitutional: Well developed, well nourished, no acute distress, non-toxic appearance. [] HENT: Normocephalic, atraumatic, bilateral external ears normal, oropharynx moist, no oral exudates, nose normal. [] Eyes: PERRLA, EOMI, conjunctiva normal, no discharge. [] Neck: Normal range of motion, no tenderness, supple, no stridor. [] Cardiovascular:Heart rate regular rhythm, no murmur [] Lungs & Thorax: Bilateral breath sounds clear to auscultation [] Abdomen: Bowel sounds normal, soft, no tenderness, no masses, no pulsatile masses. [] Skin: Warm, dry, no erythema, no rash. [] Back: No tenderness, no CVA tenderness. [] Extremities: No tenderness, no cyanosis, no clubbing, ROM intact, no edema. [] Neurologic: Alert and oriented X 3, normal motor function, normal sensory function, no focal deficits noted. [] Psychologic: Affect normal, judgement normal, mood normal. [] pelvic exam: NO BLOOD IN VAGINAL VAULT, CERVICAL OS WAS CLOSED, NO CERVICAL MOTION TENDERNESS, NO ADNEXA TENDERNESS. NO ACTIVE BLEEDING. Current Patient Data Vital Signs Vital Signs Date Time Temp Pulse Resp B/P (MAP) Pulse Ox O2 Delivery O2 Flow Rate FiO2 09/05/18 10:45 83 18 101/59 (73) 98 Room Air 09/05/18 08:15 98.3 98.3 Lab Values Laboratory Tests Test 09/05/18 08:10 09/05/18 08:55 Urine Collection Type Unknown Urine Color Yellow Urine Clarity Clear Urine pH 5.5 Urine Specific [place] 1.025 Urine Protein Negative mg/dL (NEG-TRACE) Urine Glucose (UA) Negative mg/dL (NEG) Urine Ketones (Stick) Negative mg/dL (NEG) Urine Blood Large (NEG) Urine Nitrite Negative (NEG) Urine Bilirubin Negative (NEG) Urine Urobilinogen Dipstick 1.0 mg/dL (0.2 mg/dL) Urine Leukocyte Esterase Small (NEG) Urine RBC 3-5 /HPF (0-2) Urine WBC 1-4 /HPF (0-4) Urine Squamous Epithelial Cells Many /LPF Urine Bacteria Moderate /HPF (0-FEW) Urine Mucus Marked /LPF White Blood Count 5.8 x10^3/uL (4.0-11.0) Red Blood Count 4.31 x10^6/uL (3.50-5.40) Hemoglobin 12.4 g/dL (12.0-15.5) Hematocrit 37.9 % (36.0-47.0) Mean Corpuscular Volume 88 fL (79-100) Mean Corpuscular Hemoglobin 29 pg (25-35) Mean Corpuscular Hemoglobin Concent 33 g/dL (31-37) Red Cell Distribution Width 16.4 % (11.5-14.5) H Platelet Count 150 x10^3/uL (140-400) Neutrophils (%) (Auto) 60 % (31-73) Lymphocytes (%) (Auto) 31 % (24-48) Monocytes (%) (Auto) 6 % (0-9) Eosinophils (%) (Auto) 2 % (0-3) Basophils (%) (Auto) 1 % (0-3) Neutrophils # (Auto) 3.5 x10^3uL (1.8-7.7) Lymphocytes # (Auto) 1.8 x10^3/uL (1.0-4.8) Monocytes # (Auto) 0.3 x10^3/uL (0.0-1.1) Eosinophils # (Auto) 0.1 x10^3/uL (0.0-0.7) Basophils # (Auto) 0.1 x10^3/uL (0.0-0.2) Prothrombin Time 13.3 SEC (11.7-14.0) Prothrombin Time INR 1.0 (0.8-1.1) PTT 29 SEC (24-38) Maternal Serum HCG Beta Subunit 21526 mIU/mL (0-5) H Sodium Level 137 mmol/L (136-145) Potassium Level 4.0 mmol/L (3.5-5.1) Chloride Level 103 mmol/L (98-107) Carbon Dioxide Level 24 mmol/L (21-32) Anion Gap 10 (6-14) Blood Urea Nitrogen 9 mg/dL (7-20) Creatinine 0.5 mg/dL (0.6-1.0) L Estimated GFR (Cockcroft-Gault) 180.5 BUN/Creatinine Ratio 18 (6-20) Glucose Level 108 mg/dL (70-99) H Calcium Level 8.8 mg/dL (8.5-10.1) Total Bilirubin 0.2 mg/dL (0.2-1.0) Aspartate Amino Transferase (AST) 41 U/L (15-37) H Alanine Aminotransferase (ALT) 70 U/L (14-59) H Alkaline Phosphatase 77 U/L (46-116) Total Protein 7.4 g/dL (6.4-8.2) Albumin 3.4 g/dL (3.4-5.0) Albumin/Globulin Ratio 0.9 (1.0-1.7) L Laboratory Tests 09/05/18 08:55 Laboratory Tests 09/05/18 08:55 EKG EKG [] Radiology/Procedures Radiology/Procedures [] Course & Med Decision Making Course & Med Decision Making Pertinent Labs and Imaging studies reviewed. (See chart for details) [] Dragon Disclaimer Dragon Disclaimer This electronic medical record was generated, in whole or in part, using a voice recognition dictation system. Departure Departure Impression: Primary Impression: Threatened Disposition: HOME, SELF-CARE Condition: STABLE Referrals: NO PCP (PCP) FOLLOW UP WITH YOUR DOCTOR NEXT WEEK FOR REEVALUATION WITH PELVIC ULTRASOUND AGAIN TO CONFIRM INTRAUTERINE . PELVIC REST, NO SEXUAL INTERCOURSE.. Patient Instructions: Threatened Miscarriage EZRA FREEMAN DO September 05, 2018 10:12
[2018-09-05 10:45] VITALS: BP 101/59
== END 2018-09-05 10:52 | disposition home or self-care (01) ==
LOC: ER 08:05
DX: O20.0 Threatened abortion (principal); O99.331 Smoking (tobacco) complicating pregnancy, first trimester; F17.210 Nicotine dependence, cigarettes, uncomplicated; Z98.890 Other specified postprocedural states; Z90.89 Acquired absence of other organs; Z3A.01 Less than 8 weeks gestation of pregnancy
CPT/HCPCS: 36415; 80053; 81001; 84702; 85025; 85610; 85730; 87086; 96374; 99284; J0696; J7030

== ENCOUNTER 2018-12-12 17:41 | Emergency (ER) | payer MEDICAID, OTHER ==
[~2018-12-12] VITALS: Ht 160 cm; Wt 68.0 kg
[2018-12-12 18:07] VITALS: BP 101/59
[2018-12-12 20:24] LABS: BASO # 0.1 x10^3/uL (0.0-0.2); BASO % 1 % (0-3); EOS # 0.2 x10^3/uL (0.0-0.7); EOS % 2 % (0-3); HEMATOCRIT 40.1 % (36.0-47.0); HEMOGLOBIN 13.5 g/dL (12.0-15.5); LYMPH % 33 % (24-48); MEAN CORPUSCULAR HEMOGLOBIN 30 pg (25-35); MEAN CORPUSCULAR HGB CONC 34 g/dL (31-37); MEAN CORPUSCULAR VOLUME 90 fL (79-100); MONO # 0.5 x10^3/uL (0.0-1.1); MONO % 6 % (0-9); NEUT # 5.3 x10^3/uL (1.8-7.7); NEUT % 59 % (31-73); PLATELET COUNT 166 x10^3/uL (140-400); RED BLOOD COUNT 4.46 x10^6/uL (3.50-5.40); RED CELL DISTRIBUTION WIDTH 15.6 % (11.5-14.5)
[2018-12-12] MEDS ORDERED: IOHEXOL 300 MG/ML 100ML VIAL. IV ONE (20:30)
[2018-12-12 20:32] LABS: CALCIUM 8.9 mg/dL (8.5-10.1); CREATININE 0.7 mg/dL (0.6-1.0); GFR 122.4; POTASSIUM 3.9 mmol/L (3.5-5.1)
[2018-12-12] MEDS ORDERED: CONTRAST GIVEN. MC PRN (20:45)
--- NOTE | 2018-12-12 21:25 | RAD ---
CT PELVIS W/CONTRAST Indication: Right inguinal abscess Technique: Postcontrast CT imaging was performed of the pelvis, multiplanar reconstruction images submitted. No oral contrast was given. One or more of the following individualized dose reduction techniques were utilized for this examination: 1. Automated exposure control 2. Adjustment of the mA and/or kV according to patient size 3. Use of iterative reconstruction technique. Comparison: 06/02/2010 Findings: There is a hypodense collection underlying the skin surface of the superior medial right thigh region image 89 series 2 about 3.2 cm AP by 1.3 cm transverse by 1.9 cm CC. There is mild peripheral enhancement, internal density measurements 18 Hounsfield units. There is adjacent mild stranding change of the fat. There are subcentimeter inguinal nodes bilaterally. There is some heterogeneity and fullness of the right adnexal region difficult to otherwise characterize, focus of relative hyperdensity about 2.8 cm in this region with internal density measurements not of simple fluid about 44 Hounsfield units. There is no free air of the visualized pelvis. Visualized bowel is not considered significantly dilated. Appendix caliber is within normal limits about 0.5 cm. There is a broad fascial defect of the umbilicus with segment of nondilated small bowel protruding into this region. IMPRESSION: 1. There is a superficial abscess underlying the skin surface of the superior medial right thigh region. 2. There is fullness and heterogeneity of the right adnexal region more commonly due to component of hemorrhagic or complex cyst, underlying adnexal mass difficult to exclude by CT. 3. There is broad fascial defect at the umbilicus, contains segment of nondilated small bowel. Electronically signed by: Celso Thurman MD (12/12/2018 9:22 PM) [facility]
[2018-12-12] MEDS ORDERED: LIDOCAINE 1%/EPI 1:100,000 20 ML VIAL. ONE (21:38)
--- NOTE | 2018-12-12 21:43 | PHYS DOC ---
Past Medical History Past Medical History: STD Additional Past Medical Histor: gonorrhea, herpes Past Surgical History: , Tonsillectomy Alcohol Use: None Drug Use: None Adult General Chief Complaint Chief Complaint: ABSCESS HPI HPI Patient is a 28 year old female who presents to the emergency department with complaints of an abscess, redness, tenderness, and swelling to her right groin for the last 4 days. Patient denies any drainage. She currently rates the pain is 10 out of 10 on pain scale, the pain increases if the area is touched, there are no alleviating factors. Review of Systems Review of Systems Constitutional: Denies fever or chills [] Eyes: Denies redness, or eye pain [] HENT: Denies nasal congestion or sore throat [] Respiratory: Denies cough or shortness of breath [] Cardiovascular: No additional information not addressed in HPI [] GI: Denies abdominal pain, nausea, vomiting, or diarrhea [] : Denies dysuria or hematuria [] Musculoskeletal: Denies back pain Integument: See history of present illness Neurologic: Denies headache, focal weakness or sensory changes [] Complete systems were reviewed and found to be within normal limits, except as documented in this note. Current Medications Current Medications Current Medications Medications (Trade) Dose Ordered Sig/Carl Start Time Stop Time Status Last Admin Dose Admin Info (CONTRAST GIVEN -- Rx MONITORING) 1 each PRN DAILY PRN 12/12/18 20:45 12/12/18 22:37 DC Iohexol (Omnipaque 300 Mg/ml) 75 ml 1X ONCE 12/12/18 20:30 12/12/18 20:31 DC 12/12/18 21:03 75 ML Lidocaine/ Epinephrine (LIDOCAINE 1%-EPI 1:100,000 Multi-Dose) 20 ml STK-MED ONCE 12/12/18 21:38 12/12/18 21:38 DC Allergies Allergies Allergies Coded Allergies Type Severity Reaction Last Updated Verified No Known Drug Allergies 11/22/14 No Physical Exam Physical Exam Constitutional: Well developed, well nourished, no acute distress, non-toxic appearance. [] HENT: Normocephalic, atraumatic, bilateral external ears normal, oropharynx moist, no oral exudates, nose normal. [] Eyes: PERRLA, EOMI, conjunctiva normal, no discharge. [] Neck: Normal range of motion, no tenderness, supple, no stridor. [] Cardiovascular:Heart rate regular rhythm, no murmur [] Lungs & Thorax: Bilateral breath sounds clear to auscultation [] Abdomen: soft, no tenderness, no masses, no pulsatile masses. [] Skin: Warm, dry; significant swelling, warmth, erythema, and fluctuant pustule noted in right groin, no drainage, Back: No CVA tenderness. [] Extremities: No cyanosis, no clubbing, ROM intact, no edema. [] Neurologic: Alert and oriented X 3, no focal deficits noted. [] Psychologic: Affect normal, judgement normal, mood normal. [] Current Patient Data Vital Signs Vital Signs Date Time Temp Pulse Resp B/P (MAP) Pulse Ox O2 Delivery O2 Flow Rate FiO2 12/12/18 18:07 98.4 90 16 101/59 (73) 98 Room Air 98.4 Lab Values Laboratory Tests Test 12/12/18 19:59 12/12/18 20:15 POC Urine HCG, Qualitative Hcg negative (Negative) White Blood Count 9.0 x10^3/uL (4.0-11.0) Red Blood Count 4.46 x10^6/uL (3.50-5.40) Hemoglobin 13.5 g/dL (12.0-15.5) Hematocrit 40.1 % (36.0-47.0) Mean Corpuscular Volume 90 fL (79-100) Mean Corpuscular Hemoglobin 30 pg (25-35) Mean Corpuscular Hemoglobin Concent 34 g/dL (31-37) Red Cell Distribution Width 15.6 % (11.5-14.5) H Platelet Count 166 x10^3/uL (140-400) Neutrophils (%) (Auto) 59 % (31-73) Lymphocytes (%) (Auto) 33 % (24-48) Monocytes (%) (Auto) 6 % (0-9) Eosinophils (%) (Auto) 2 % (0-3) Basophils (%) (Auto) 1 % (0-3) Neutrophils # (Auto) 5.3 x10^3/uL (1.8-7.7) Lymphocytes # (Auto) 3.0 x10^3/uL (1.0-4.8) Monocytes # (Auto) 0.5 x10^3/uL (0.0-1.1) Eosinophils # (Auto) 0.2 x10^3/uL (0.0-0.7) Basophils # (Auto) 0.1 x10^3/uL (0.0-0.2) Sodium Level 139 mmol/L (136-145) Potassium Level 3.9 mmol/L (3.5-5.1) Chloride Level 104 mmol/L (98-107) Carbon Dioxide Level 25 mmol/L (21-32) Anion Gap 10 (6-14) Blood Urea Nitrogen 12 mg/dL (7-20) Creatinine 0.7 mg/dL (0.6-1.0) Estimated GFR (Cockcroft-Gault) 122.4 Glucose Level 98 mg/dL (70-99) Calcium Level 8.9 mg/dL (8.5-10.1) Laboratory Tests 12/12/18 20:15 Laboratory Tests 12/12/18 20:15 EKG EKG [] Radiology/Procedures Radiology/Procedures PROCEDURE: CT PELVIS W/CONTRAST CT PELVIS W/CONTRAST Indication: Right inguinal abscess Technique: Postcontrast CT imaging was performed of the pelvis, multiplanar reconstruction images submitted. No oral contrast was given. One or more of the following individualized dose reduction techniques were utilized for this examination: 1. Automated exposure control 2. Adjustment of the mA and/or kV according to patient size 3. Use of iterative reconstruction technique. Comparison: 06/02/2010 Findings: There is a hypodense collection underlying the skin surface of the superior medial right thigh region image 89 series 2 about 3.2 cm AP by 1.3 cm transverse by 1.9 cm CC. There is mild peripheral enhancement, internal density measurements 18 Hounsfield units. There is adjacent mild stranding change of the fat. There are subcentimeter inguinal nodes bilaterally. There is some heterogeneity and fullness of the right adnexal region difficult to otherwise characterize, focus of relative hyperdensity about 2.8 cm in this region with internal density measurements not of simple fluid about 44 Hounsfield units. There is no free air of the visualized pelvis. Visualized bowel is not considered significantly dilated. Appendix caliber is within normal limits about 0.5 cm. There is a broad fascial defect of the umbilicus with segment of nondilated small bowel protruding into this region. IMPRESSION: 1. There is a superficial abscess underlying the skin surface of the superior medial right thigh region. 2. There is fullness and heterogeneity of the right adnexal region more commonly due to component of hemorrhagic or complex cyst, underlying adnexal mass difficult to exclude by CT. 3. There is broad fascial defect at the umbilicus, contains segment of nondilated small bowel. [] Course & Med Decision Making Course & Med Decision Making Pertinent Labs and Imaging studies reviewed. (See chart for details) [] Dragon Disclaimer Dragon Disclaimer This electronic medical record was generated, in whole or in part, using a voice recognition dictation system. Departure Departure Impression: Primary Impression: Cutaneous abscess of groin Disposition: HOME, SELF-CARE Condition: STABLE Referrals: NO PCP (PCP) Patient Instructions: Abscess, Care After Additional Instructions: Fill the prescription(s) and use as directed. Leave the Dressing that was placed in the ER in place for the next 24 hours, then change the dressing twice daily and as needed. Apply warm moist packs to the area every 1-2 hours and as needed for comfort. Return to the ER in 48 hours to have wound rechecked and packing removed. Return to the ER sooner if your symptoms worsen you develop a fever.. Scripts Hydrocodone Bit/Acetaminophen (HYDROCODONE-APAP 5-325 ) 1 Tab Tablet 1 TAB PO PRN Q6HRS PRN for PAIN for 2 Days, #8 TAB 0 Refills Prov: BEATRICE HASY APRN 12/12/18 Clindamycin Hcl (CLINDAMYCIN HCL) 150 Mg Capsule 450 MG PO TID for 7 Days, #63 CAP 0 Refills Prov: BEATRICE HAYS APRN 12/12/18 Incision and Drainage Incision and Drainage : Site: right groin Blade Size: 11 I & D Procedure: betadine prep, gauze wick placed (1/4 iodoform gauze) Progress pt tolerated procedure well, minimal blood loss, no complications. BEATRICE HAYS APRN Dec 12, 2018 21:42
[2018-12-12] MEDS ORDERED: LIDOCAINE 1%/EPI 1:100,000 20 ML VIAL. SQ ONE (21:45)
[2018-12-12] MEDS ORDERED: CLIN150C14 PO (22:25)
[2018-12-12] MEDS ORDERED: HYDR-2761 PO (22:25)
== END 2018-12-12 22:35 | disposition home or self-care (01) ==
LOC: ER 17:41
DX: L02.214 Cutaneous abscess of groin (principal); Z98.890 Other specified postprocedural states; Z90.89 Acquired absence of other organs
CPT/HCPCS: 10060; 36415; 72193; 80048; 81025; 85025; 99285; J3490; Q9967

== ENCOUNTER 2018-12-14 15:59 | Emergency (ER) | payer MEDICAID ==
[~2018-12-14] VITALS: Ht 165.1 cm; Wt 68.0 kg
[~2018-12-14 15:59] MED LIST changes: +CLIN150C14 PO; +HYDR-2761 PO
[2018-12-14 16:38] VITALS: BP 101/59
--- NOTE | 2018-12-14 16:43 | PHYS DOC ---
Past Medical History Past Medical History: STD Additional Past Medical Histor: gonorrhea, herpes Past Surgical History: , Tonsillectomy Alcohol Use: None Drug Use: None Adult General Chief Complaint Chief Complaint: WOUND CHECK HPI HPI Patient is a 28 year old AA female who presents to the emergency department with the need for wound recheck of her abscess that was drained in her right groin 2 days ago. Patient states that the pain was subsiding and the area is improving. C Patient states that the gauze wick that was inserted during the previous visit fell out yesterday. Currently she rates pain a 6 out of 10, she states that the pain medication that was prescribed has been helping. Review of Systems Review of Systems Constitutional: Denies fever or chills [] HENT: Denies nasal congestion or sore throat [] Respiratory: Denies cough or shortness of breath [] Cardiovascular: No additional information not addressed in HPI [] GI: Denies abdominal pain, nausea, vomiting, or diarrhea [] : Denies dysuria or hematuria [] Musculoskeletal: Denies back pain or joint pain [] Integument: See HPI Neurologic: Denies headache Complete systems were reviewed and found to be within normal limits, except as documented in this note. Allergies Allergies Allergies Coded Allergies Type Severity Reaction Last Updated Verified No Known Drug Allergies 11/22/14 No Physical Exam Physical Exam Constitutional: Well developed, well nourished, no acute distress, non-toxic appearance. [] HENT: Normocephalic, atraumatic, bilateral external ears normal, nose normal. [] Eyes: PERRLA, conjunctiva normal, no discharge. [] Neck: Normal range of motion, no stridor. [] Cardiovascular:Heart rate regular rhythm Lungs & Thorax: Respirations even and unlabored, no retractions, no respiratory distress Skin: Warm, dry; draining abscess noted in right groin, improved since previous visit, indurated tissue remains, without erythema or warmth. Extremities: No cyanosis, ROM intact, no edema. [] Neurologic: Alert and oriented X 3, no focal deficits noted. [] Psychologic: Affect normal, judgement normal, mood normal. [] Current Patient Data Vital Signs Vital Signs Date Time Temp Pulse Resp B/P (MAP) Pulse Ox O2 Delivery O2 Flow Rate FiO2 12/14/18 16:38 98.6 82 16 101/59 (73) 99 Room Air 98.6 EKG EKG [] Radiology/Procedures Radiology/Procedures [] Course & Med Decision Making Course & Med Decision Making Pertinent Labs and Imaging studies reviewed. (See chart for details) [] Dragon Disclaimer Dragon Disclaimer This electronic medical record was generated, in whole or in part, using a voice recognition dictation system. Departure Departure Impression: Primary Impression: Encounter for wound re-check Disposition: HOME, SELF-CARE Condition: STABLE Referrals: NO PCP (PCP) Patient Instructions: Wound Care, [id number] Additional Instructions: Continue taking medications as previously prescribed. Also continue application of warm packs as directed. Follow-up with your primary care doctor if symptoms persist, return to the ER if symptoms worsen. BEATRICE HAYS [employer] O[employer]ATOR Dec 14, 2018 16:43
== END 2018-12-14 20:58 | disposition home or self-care (01) ==
LOC: ER 15:59
DX: L02.214 Cutaneous abscess of groin (principal); Z98.890 Other specified postprocedural states; Z90.89 Acquired absence of other organs
CPT/HCPCS: 99281

== ENCOUNTER 2019-02-25 19:47 | Emergency (ER) | payer MEDICAID ==
[~2019-02-25] VITALS: Ht 160 cm; Wt 68.0 kg
[2019-02-25] MEDS ORDERED: ONDANSETRON PF 4 MG/2 ML VIAL. IV ONE (20:15)
--- NOTE | 2019-02-25 20:16 | PHYS DOC ---
Past Medical History Past Medical History: STD Additional Past Medical Histor: gonorrhea, herpes Past Surgical History: , Tonsillectomy Alcohol Use: None Drug Use: None Adult General Chief Complaint Chief Complaint: SYNCOPE HPI HPI Patient is a 28-year-old female who presents after reportedly having what she thinks may have been a syncopal episode. Patient states that she had been in the shower, scrubbing herself and next thing she knew she was sitting on the floor of the shower. She states that she is not sure whether or not she fainted or if she just fell asleep. She denies any injuries. She does admit to some nausea and does have some lower abdominal cramping. She states the cramping she believes is from her menstrual cycle. And eyes any chest pain or shortness of breath. She does indicate that she has a symptom of like some buzzing to the top of her scalp that she also states feels like it's burning. She rates that discomfort is mild.[] Review of Systems Review of Systems Constitutional: Denies fever or chills [] Respiratory: Denies cough or shortness of breath [] Cardiovascular: No additional information not addressed in HPI [] GI: Denies abdominal pain, nausea, vomiting or diarrhea [] Integument: Denies rash or skin lesions [] Neurologic: Complains of burning headache without focal weakness or sensory changes [] All other systems were reviewed and found to be within normal limits, except as documented in this note. Current Medications Current Medications Current Medications Medications (Trade) Dose Ordered Sig/[facility] Start Time Stop Time Status Last Admin Dose Admin Acetaminophen (Tylenol) 1,000 mg 1X ONCE 02/25/19 23:00 02/25/19 22:42 DC Ondansetron HCl (Zofran) 4 mg 1X ONCE 02/25/19 20:15 02/25/19 20:16 DC 02/25/19 20:15 4 MG Allergies Allergies Allergies Coded Allergies Type Severity Reaction Last Updated Verified No Known Drug Allergies 11/22/14 No Physical Exam Physical Exam Constitutional: Well developed, well nourished, no acute distress, non-toxic appearance. [] HENT: Normocephalic, atraumatic, bilateral external ears normal, oropharynx moist, no oral exudates, nose normal. [] Eyes: PERRLA, EOMI, conjunctiva normal, no discharge. [] Neck: Normal range of motion, no tenderness, supple. [] Cardiovascular: Regular rate and rhythm[] Lungs & Thorax: Bilateral breath sounds clear to auscultation [] Abdomen: Bowel sounds normal, soft, no tenderness. [] Skin: Warm, dry, no erythema, no rash. [] Extremities: No tenderness, no cyanosis, no clubbing, ROM intact, no edema. [] Neurologic: Alert and oriented X 3, no focal deficits noted. [] Current Patient Data Vital Signs Vital Signs Date Time Temp Pulse Resp B/P (MAP) Pulse Ox O2 Delivery O2 Flow Rate FiO2 02/25/19 22:09 86 16 109/73 (85) 98 Room Air 02/25/19 20:05 98.1 98.1 Lab Values Laboratory Tests Test 02/25/19 20:10 02/25/19 21:25 02/25/19 21:27 White Blood Count 7.2 x10^3/uL (4.0-11.0) Red Blood Count 4.47 x10^6/uL (3.50-5.40) Hemoglobin 13.0 g/dL (12.0-15.5) Hematocrit 39.4 % (36.0-47.0) Mean Corpuscular Volume 88 fL (79-100) Mean Corpuscular Hemoglobin 29 pg (25-35) Mean Corpuscular Hemoglobin Concent 33 g/dL (31-37) Red Cell Distribution Width 15.4 % (11.5-14.5) H Platelet Count 198 x10^3/uL (140-400) Neutrophils (%) (Auto) 47 % (31-73) Lymphocytes (%) (Auto) 44 % (24-48) Monocytes (%) (Auto) 6 % (0-9) Eosinophils (%) (Auto) 2 % (0-3) Basophils (%) (Auto) 1 % (0-3) Neutrophils # (Auto) 3.4 x10^3/uL (1.8-7.7) Lymphocytes # (Auto) 3.2 x10^3/uL (1.0-4.8) Monocytes # (Auto) 0.5 x10^3/uL (0.0-1.1) Eosinophils # (Auto) 0.2 x10^3/uL (0.0-0.7) Basophils # (Auto) 0.1 x10^3/uL (0.0-0.2) Sodium Level 140 mmol/L (136-145) Potassium Level 4.1 mmol/L (3.5-5.1) Chloride Level 104 mmol/L (98-107) Carbon Dioxide Level 24 mmol/L (21-32) Anion Gap 12 (6-14) Blood Urea Nitrogen 14 mg/dL (7-20) Creatinine 0.9 mg/dL (0.6-1.0) Estimated GFR (Cockcroft-Gault) 91.6 BUN/Creatinine Ratio 16 (6-20) Glucose Level 106 mg/dL (70-99) H Calcium Level 9.1 mg/dL (8.5-10.1) Magnesium Level 1.8 mg/dL (1.8-2.4) Total Bilirubin 0.1 mg/dL (0.2-1.0) L Aspartate Amino Transferase (AST) 37 U/L (15-37) Alanine Aminotransferase (ALT) 40 U/L (14-59) Alkaline Phosphatase 89 U/L (46-116) Total Protein 7.7 g/dL (6.4-8.2) Albumin 3.6 g/dL (3.4-5.0) Albumin/Globulin Ratio 0.9 (1.0-1.7) L Urine Collection Type Unknown Urine Color Yellow Urine Clarity Clear Urine pH 5.0 Urine Specific [place] 1.025 Urine Protein Negative mg/dL (NEG-TRACE) Urine Glucose (UA) Negative mg/dL (NEG) Urine Ketones (Stick) Negative mg/dL (NEG) Urine Blood Negative (NEG) Urine Nitrite Negative (NEG) Urine Bilirubin Negative (NEG) Urine Urobilinogen Dipstick 0.2 mg/dL (0.2 mg/dL) Urine Leukocyte Esterase Negative (NEG) Urine RBC 0 /HPF (0-2) Urine WBC 0 /HPF (0-4) Urine Squamous Epithelial Cells Mod /LPF Urine Bacteria Few /HPF (0-FEW) Urine Mucus Marked /LPF POC Urine HCG, Qualitative Hcg negative (Negative) Laboratory Tests 02/25/19 20:10 Laboratory Tests 02/25/19 20:10 EKG EKG [] Radiology/Procedures Radiology/Procedures [] Impressions: PROCEDURE: CT HEAD WO CONTRAST EXAM: CT Head without IV contrast CLINICAL HISTORY: headache; syncope COMPARISON: None. TECHNIQUE: Routine CT of the head without contrast. Soft tissues and bone windows were reviewed. PQRS compliance statement - One or more of the following individualized dose reduction techniques were utilized for this study: 1. Automated exposure control 2. Adjustment of the mA and/or kV according to patient size 3. Use of iterative reconstruction technique FINDINGS: There is no evidence of hemorrhage, mass or extra-axial fluid collection. Bentley-white differentiation is maintained with no evidence of edema. There is no mass effect or shift of the intracranial structures. The ventricles, basilar cisterns and cortical sulci are normal in size and configuration for the patients stated age. The cerebellum and brainstem are unremarkable. The calvarium demonstrates no evidence of fracture or focal lesion. Mastoid air cells are clear. Left maxillary airspace opacities are seen. The visualized portions of the orbits are normal. IMPRESSION: 1. No evidence for acute intracranial process. 2. Left maxillary airspace partial opacification Electronically signed by: Andrez Christy MD (02/25/2019 10:06 PM) [facility] Course & Med Decision Making Course & Med Decision Making Pertinent Labs and Imaging studies reviewed. (See chart for details) [] Dragon Disclaimer Dragon Disclaimer This electronic medical record was generated, in whole or in part, using a voice recognition dictation system. Departure Departure Impression: Primary Impression: Vasovagal syncope Additional Impression: Headache Disposition: 01 HOME, SELF-CARE Condition: STABLE Referrals: NO PCP (PCP) Patient Instructions: Syncope Problem Qualifiers Additional Impression: Headache Headache type: unspecified Headache chronicity pattern: unspecified pattern Intractability: not intractable Qualified Codes: R51 - Headache KARMA VIZCARRA Jr. DO Feb 25, 2019 20:16
[2019-02-25 20:21] LABS: BASO # 0.1 x10^3/uL (0.0-0.2); BASO % 1 % (0-3); EOS # 0.2 x10^3/uL (0.0-0.7); EOS % 2 % (0-3); HEMATOCRIT 39.4 % (36.0-47.0); LYMPH # 3.2 x10^3/uL (1.0-4.8); LYMPH % 44 % (24-48); MEAN CORPUSCULAR HEMOGLOBIN 29 pg (25-35); MEAN CORPUSCULAR HGB CONC 33 g/dL (31-37); MEAN CORPUSCULAR VOLUME 88 fL (79-100); MONO # 0.5 x10^3/uL (0.0-1.1); MONO % 6 % (0-9); NEUT # 3.4 x10^3/uL (1.8-7.7); NEUT % 47 % (31-73); PLATELET COUNT 198 x10^3/uL (140-400); RED BLOOD COUNT 4.47 x10^6/uL (3.50-5.40); RED CELL DISTRIBUTION WIDTH 15.4 % (11.5-14.5); WHITE BLOOD COUNT 7.2 x10^3/uL (4.0-11.0)
[2019-02-25 20:28] LABS: CALCIUM 9.1 mg/dL (8.5-10.1); CREATININE 0.9 mg/dL (0.6-1.0); GFR 91.6; POTASSIUM 4.1 mmol/L (3.5-5.1)
[2019-02-25 20:34] LABS: ALBUMIN 3.6 g/dL (3.4-5.0); ALBUMIN/GLOBULIN RATIO 0.9 (1.0-1.7); MAGNESIUM 1.8 mg/dL (1.8-2.4); TOTAL BILIRUBIN 0.1 mg/dL (0.2-1.0); TOTAL PROTEIN 7.7 g/dL (6.4-8.2)
[2019-02-25 21:34] LABS: BILIRUBIN,URINE NEGATIVE (NEG); CLARITY,URINE CLEAR; COLOR,URINE YELLOW; NITRITE,URINE NEGATIVE (NEG); PROTEIN,URINE NEGATIVE (NEG-TRACE); UROBILINOGEN,URINE 0.2 mg/dL (0.2 mg/dL)
[2019-02-25 21:45] LABS: SQUAMOUS EPITHELIAL CELL,UR MOD /LPF
[2019-02-25 21:46] LABS: BACTERIA,URINE FEW /HPF (0-FEW); RBC,URINE 0 /HPF (0-2); WBC,URINE 0 /HPF (0-4)
[2019-02-25 22:09] VITALS: BP 109/73
--- NOTE | 2019-02-25 22:09 | RAD ---
EXAM: CT Head without IV contrast CLINICAL HISTORY: headache; syncope COMPARISON: None. TECHNIQUE: Routine CT of the head without contrast. Soft tissues and bone windows were reviewed. PQRS compliance statement - One or more of the following individualized dose reduction techniques were utilized for this study: 1. Automated exposure control 2. Adjustment of the mA and/or kV according to patient size 3. Use of iterative reconstruction technique FINDINGS: There is no evidence of hemorrhage, mass or extra-axial fluid collection. Bentley-white differentiation is maintained with no evidence of edema. There is no mass effect or shift of the intracranial structures. The ventricles, basilar cisterns and cortical sulci are normal in size and configuration for the patients stated age. The cerebellum and brainstem are unremarkable. The calvarium demonstrates no evidence of fracture or focal lesion. Mastoid air cells are clear. Left maxillary airspace opacities are seen. The visualized portions of the orbits are normal. IMPRESSION: 1. No evidence for acute intracranial process. 2. Left maxillary airspace partial opacification Electronically signed by: Andrez Christy MD (02/25/2019 10:06 PM) [facility]
[2019-02-25] MEDS ORDERED: ACETAMINOPHEN 500 MG TABLET PO ONE (23:00)
--- NOTE | 2019-02-26 06:17 | EKG ---
[facility] [address] [place] [address] Test Date: 2019-02-25 Test Time: 20:45:51 Pat Name: ROSANNA RAMOS Department: Room: Gender: F [employer]: : 1990 Requested By: KARMA VIZCARRA Order Number: [id number] Reading MD: Measurements Intervals [place] Rate: 94 P: 45 IN: 138 QRS: 33 QRSD: 58 T: 7 QT: 338 QTc: 428 Interpretive Statements SINUS RHYTHM RVH WITH REPOLARIZATION ABNORMALITY QRS(T) CONTOUR ABNORMALITY CONSIDER INFERIOR MYOCARDIAL DAMAGE ABNORMAL ECG RI6.01 No previous ECG available for comparison
== END 2019-02-25 22:42 | disposition home or self-care (01) ==
LOC: ER 20:57
DX: R55 Syncope and collapse (principal); R51 Headache; R10.30 Lower abdominal pain, unspecified
CPT/HCPCS: 36415; 70450; 80053; 81001; 81025; 83735; 85025; 93005; 96374; 99285; J2405

== ENCOUNTER 2019-04-08 22:00 | Emergency (ER) | payer MEDICAID ==
[~2019-04-08] VITALS: Ht 160 cm; Wt 68.0 kg
--- NOTE | 2019-04-08 22:21 | PHYS DOC ---
Past Medical History Past Medical History: STD Additional Past Medical Histor: gonorrhea, herpes Past Surgical History: , Tonsillectomy Alcohol Use: None Drug Use: None Adult General Chief Complaint Chief Complaint: CHEST PAIN HPI HPI Patient is a 28 year old female who presents with chest pain, and left toe pain. The patient states she gave blood around 3:00 today. The patient had hot flashes and was sweating after she gave blood. Her chest pain started around this time as well. The patient states she also has been having left toe numbness since she gave blood. She rates her pain as 10 in severity and sharp. Review of Systems Review of Systems Constitutional: Denies fever or chills [] Eyes: Denies change in visual acuity, redness, or eye pain [] HENT: Denies nasal congestion or sore throat [] Respiratory: Reports cough. Cardiovascular: No additional information not addressed in HPI [] GI: Denies abdominal pain, nausea, vomiting, bloody stools or diarrhea [] : Denies dysuria or hematuria [] Musculoskeletal: Reports left toe pain. Integument: Denies rash or skin lesions [] Neurologic: Denies headache, focal weakness or sensory changes [] Endocrine: Denies polyuria or polydipsia [] Complete systems were reviewed and found to be within normal limits, except as documented in this note. Current Medications Current Medications Current Medications Medications (Trade) Dose Ordered Sig/Carl Start Time Stop Time Status Last Admin Dose Admin Ketorolac Tromethamine (Toradol) 10 mg 1X ONCE 04/08/19 23:00 04/08/19 23:01 DC 04/08/19 22:59 10 MG Allergies Allergies Allergies Coded Allergies Type Severity Reaction Last Updated Verified No Known Drug Allergies 11/22/14 No Physical Exam Physical Exam Constitutional: Well developed, well nourished, no acute distress, non-toxic appearance. [] HENT: Normocephalic, atraumatic, bilateral external ears normal, oropharynx moist, no oral exudates, nose normal. [] Eyes: PERRLA, EOMI, conjunctiva normal, no discharge. [] Neck: Normal range of motion, no tenderness, supple, no stridor. [] Cardiovascular:Heart rate regular rhythm, no murmur [] Lungs & Thorax: Bilateral breath sounds clear to auscultation [] Abdomen: Bowel sounds normal, soft, no tenderness, no masses, no pulsatile masses. [] Skin: Warm, dry, no erythema, no rash. [] Extremities: No tenderness, no cyanosis, no clubbing, ROM intact, no edema. [] Neurologic: Alert and oriented X 3, normal motor function, normal sensory function, no focal deficits noted. [] Psychologic: Affect normal, judgement normal, mood normal. [] Current Patient Data Vital Signs Vital Signs Date Time Temp Pulse Resp B/P (MAP) Pulse Ox O2 Delivery O2 Flow Rate FiO2 04/08/19 22:10 98.3 98 16 111/79 (90) 97 Room Air 98.3 Lab Values Laboratory Tests Test 04/08/19 22:27 04/08/19 22:42 White Blood Count 9.4 x10^3/uL (4.0-11.0) Red Blood Count 5.05 x10^6/uL (3.50-5.40) Hemoglobin 14.1 g/dL (12.0-15.5) Hematocrit 43.3 % (36.0-47.0) Mean Corpuscular Volume 86 fL (79-100) Mean Corpuscular Hemoglobin 28 pg (25-35) Mean Corpuscular Hemoglobin Concent 33 g/dL (31-37) Red Cell Distribution Width 15.5 % (11.5-14.5) H Platelet Count 164 x10^3/uL (140-400) Neutrophils (%) (Auto) 46 % (31-73) Lymphocytes (%) (Auto) 44 % (24-48) Monocytes (%) (Auto) 7 % (0-9) Eosinophils (%) (Auto) 1 % (0-3) Basophils (%) (Auto) 1 % (0-3) Neutrophils # (Auto) 4.4 x10^3/uL (1.8-7.7) Lymphocytes # (Auto) 4.2 x10^3/uL (1.0-4.8) Monocytes # (Auto) 0.7 x10^3/uL (0.0-1.1) Eosinophils # (Auto) 0.1 x10^3/uL (0.0-0.7) Basophils # (Auto) 0.1 x10^3/uL (0.0-0.2) Sodium Level 137 mmol/L (136-145) Potassium Level 4.1 mmol/L (3.5-5.1) Chloride Level 105 mmol/L (98-107) Carbon Dioxide Level 21 mmol/L (21-32) Anion Gap 11 (6-14) Blood Urea Nitrogen 13 mg/dL (7-20) Creatinine 0.7 mg/dL (0.6-1.0) Estimated GFR (Cockcroft-Gault) 122.4 BUN/Creatinine Ratio 19 (6-20) Glucose Level 102 mg/dL (70-99) H Calcium Level 8.4 mg/dL (8.5-10.1) L Total Bilirubin 0.1 mg/dL (0.2-1.0) L Aspartate Amino Transferase (AST) 15 U/L (15-37) Alanine Aminotransferase (ALT) 14 U/L (14-59) Alkaline Phosphatase 61 U/L (46-116) Troponin I Quantitative < 0.017 ng/mL (0.000-0.055) Total Protein 6.4 g/dL (6.4-8.2) Albumin 3.1 g/dL (3.4-5.0) L Albumin/Globulin Ratio 0.9 (1.0-1.7) L POC Urine HCG, Qualitative Hcg negative (Negative) Laboratory Tests 04/08/19 22:27 Laboratory Tests 04/08/19 22:27 EKG EKG EKG interpreted by Dr. Schulte. Sinus with rate of 98. NO ST ELEVATION[] Radiology/Procedures Radiology/Procedures [][facility] [address], [place] [id number] IMAGING REPORT Signed PATIENT: ROSANNA RAMOS RACCOUNT: [id number] : 1990 LOCATION: ER AGE: 28 SEX: F EXAM STATUS: REG ER ORD. PHYSICIAN: PREET SANDERSON APRN REASON: cp/PREG TEST PROCEDURE: CHEST PA & LATERAL Exam: Chest 2 views INDICATION: Chest pain TECHNIQUE: Frontal and lateral views the chest Comparisons: 08/17/2016 FINDINGS: The cardiomediastinal silhouette and pulmonary vessels are within normal limits. The lung and pleural spaces are clear. IMPRESSION: No acute cardiopulmonary process. Electronically signed by: Kevin Pop MD (04/08/2019 11:27 PM) [facility] DICTATED and SIGNED BY: KEVIN POP MD DATE: 04/08/192326 Course & Med Decision Making Course & Med Decision Making Pertinent Labs and Imaging studies reviewed. (See chart for details) Will get EKG, Chest X-ray, Labs. workup is unremarkable. Will d/c home. Dragon Disclaimer Dragon Disclaimer This electronic medical record was generated, in whole or in part, using a voice recognition dictation system. Departure Departure Impression: Primary Impression: Chest pain Disposition: HOME, SELF-CARE Condition: STABLE Referrals: NO PCP (PCP) Patient Instructions: Chest Pain (Nonspecific) Additional Instructions: Thank you for visiting [facility]. We appreciate you trusting us with your care. If any additional problems come up don't hesitate to return to visit us. Please follow up with your primary care provider so they can plan additional care if needed and know about the problem that you had. If symptoms worsen come back to the Emergency Department. Any concerning symptoms that start such as chest pain, shortness of air, weakness or numbness on one side of the body, running high fevers or any other concerning symptoms return to the ER. The HEART Score for CP Pts HEART Score for Chest Pain: HEART Score for Chest Pain Response (Comments) Value History Slighlty/Non-Suspicious 0 ECG Normal 0 Age < 45 0 Risk Factors No Risk Factors 0 Troponin < Normal Limit 0 Total 0 Risk Factors: Risk Factors: DM, Current or recent (<one month) smoker, HTN, HLP, family history of CAD, obesity. Risk Scores: Score 0 - 3: 2.5% MACE over next 6 weeks - Discharge Home Score 4 - 6: 20.3% MACE over next 6 weeks - Admit for Clinical Observation Score 7 - 10: 72.7% MACE over next 6 weeks - Early Invasive Strategies Problem Qualifiers Primary Impression: Chest pain Chest pain type: unspecified Qualified Codes: R07.9 - Chest pain, unspecified PREET SANDERSON APRN Apr 08, 2019 22:21
[2019-04-08 22:32] LABS: BASO # 0.1 x10^3/uL (0.0-0.2); BASO % 1 % (0-3); EOS # 0.1 x10^3/uL (0.0-0.7); EOS % 1 % (0-3); HEMATOCRIT 43.3 % (36.0-47.0); HEMOGLOBIN 14.1 g/dL (12.0-15.5); LYMPH # 4.2 x10^3/uL (1.0-4.8); LYMPH % 44 % (24-48); MEAN CORPUSCULAR HEMOGLOBIN 28 pg (25-35); MEAN CORPUSCULAR HGB CONC 33 g/dL (31-37); MEAN CORPUSCULAR VOLUME 86 fL (79-100); MONO # 0.7 x10^3/uL (0.0-1.1); MONO % 7 % (0-9); NEUT # 4.4 x10^3/uL (1.8-7.7); NEUT % 46 % (31-73); PLATELET COUNT 164 x10^3/uL (140-400); RED BLOOD COUNT 5.05 x10^6/uL (3.50-5.40); RED CELL DISTRIBUTION WIDTH 15.5 % (11.5-14.5); WHITE BLOOD COUNT 9.4 x10^3/uL (4.0-11.0)
[2019-04-08 22:41] LABS: CALCIUM 8.4 mg/dL (8.5-10.1); CREATININE 0.7 mg/dL (0.6-1.0); GFR 122.4; POTASSIUM 4.1 mmol/L (3.5-5.1)
[2019-04-08 22:47] LABS: ALBUMIN 3.1 g/dL (3.4-5.0); ALBUMIN/GLOBULIN RATIO 0.9 (1.0-1.7); TOTAL BILIRUBIN 0.1 mg/dL (0.2-1.0); TOTAL PROTEIN 6.4 g/dL (6.4-8.2)
[2019-04-08] MEDS: KETOROLAC TROMETHAMINE 10 MG TABLET PO ONE (22:59)
[2019-04-08 23:09] VITALS: BP 111/81
--- NOTE | 2019-04-08 23:30 | RAD ---
Exam: Chest 2 views INDICATION: Chest pain TECHNIQUE: Frontal and lateral views the chest Comparisons: 08/17/2016 FINDINGS: The cardiomediastinal silhouette and pulmonary vessels are within normal limits. The lung and pleural spaces are clear. IMPRESSION: No acute cardiopulmonary process. Electronically signed by: Kevin Urena MD (04/08/2019 11:27 PM) [facility]
--- NOTE | 2019-04-09 07:11 | EKG ---
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
== END 2019-04-08 23:45 | disposition home or self-care (01) ==
LOC: ER 22:00
DX: R07.89 Other chest pain (principal); M79.675 Pain in left toe(s); R20.0 Anesthesia of skin
CPT/HCPCS: 36415; 71046; 80053; 81025; 84484; 85025; 93005; 99285-25

== ENCOUNTER 2019-07-04 20:48 | Emergency (ER) | payer MEDICAID ==
[~2019-07-04] VITALS: Ht 160 cm; Wt 68.2 kg
[2019-07-04 21:36] LABS: BASO % 1 % (0-3); EOS # 0.2 x10^3/uL (0.0-0.7); EOS % 3 % (0-3); HEMATOCRIT 37.8 % (36.0-47.0); HEMOGLOBIN 12.5 g/dL (12.0-15.5); LYMPH % 43 % (24-48); MEAN CORPUSCULAR HEMOGLOBIN 29 pg (25-35); MEAN CORPUSCULAR HGB CONC 33 g/dL (31-37); MEAN CORPUSCULAR VOLUME 87 fL (79-100); MONO # 0.4 x10^3/uL (0.0-1.1); MONO % 6 % (0-9); NEUT # 3.4 x10^3/uL (1.8-7.7); NEUT % 48 % (31-73); PLATELET COUNT 171 x10^3/uL (140-400); RED BLOOD COUNT 4.35 x10^6/uL (3.50-5.40); RED CELL DISTRIBUTION WIDTH 16.8 % (11.5-14.5)
[2019-07-04] MEDS ORDERED: diphenhydrAMINE 50 MG/ML VIAL IM ONE (21:45)
[2019-07-04] MEDS ORDERED: PROCHLORPERAZINE 10 MG/2 ML VIAL. IM ONE (21:45)
[2019-07-04 22:21] LABS: BARBITURATES NEG (NEG); BENZODIAZEPINES NEG (NEG); CANNABINOIDS NEG (NEG); COCAINE NEG (NEG); METHADONE NEG (NEG); OPIATES NEG (NEG); PHENCYCLIDINE NEG (NEG)
[2019-07-04 22:22] LABS: AMPHETAMINE/METHAMPHETAMINE NEG (NEG)
--- NOTE | 2019-07-04 22:27 | PHYS DOC ---
Past Medical History Past Medical History: DVT, STD Additional Past Medical Histor: gonorrhea, herpes Past Surgical History: , Tonsillectomy Smoking Status: Current Every Day Smoker Alcohol Use: Occasionally Drug Use: None Adult General Chief Complaint Chief Complaint: HEADACHE HPI HPI Patient is a 29 year old female with history of recurrent headaches who presents with dizziness, anxiety, persistent headache since yesterday. Patient reports frontal headache, nasal congestion, rhinorrhea and sore throat. Denies cough, fever, nausea vomiting or sweats. Currently on her menstrual period. Patient took aspirin today without relief of symptoms. Review of Systems Review of Systems History of symptoms as per history of present illness. All other review symptoms are negative. He take temperature currently All other systems were reviewed and found to be within normal limits, except as documented in this note. Current Medications Current Medications Current Medications Medications (Trade) Dose Ordered Sig/Carl Start Time Stop Time Status Last Admin Dose Admin Diphenhydramine HCl (Benadryl) 50 mg 1X ONCE 07/04/19 21:45 07/04/19 21:46 DC 07/04/19 22:02 50 MG Prochlorperazine Edisylate (Compazine) 10 mg 1X ONCE 07/04/19 21:45 07/04/19 21:46 DC 07/04/19 22:02 10 MG Allergies Allergies Allergies Coded Allergies Type Severity Reaction Last Updated Verified No Known Drug Allergies 11/22/14 No Physical Exam Physical Exam Constitutional: Well developed, well nourished, no acute distress, non-toxic appearance. [] HENT: Normocephalic, atraumatic, bilateral external ears normal, oropharynx moist, nose normal. [] Eyes: PERRLA, EOMI, conjunctiva normal, no discharge. [] Neck: Normal range of motion, no tenderness. [] Cardiovascular:Heart rate regular rhythm, no murmur [] Lungs & Thorax: Bilateral breath sounds clear to auscultation [] Abdomen: Bowel sounds normal, soft, no tenderness [] Skin: Warm, dry. [] Back: No tenderness. [] Extremities: No tenderness, no edema. [] Neurologic: Alert and oriented X 3, normal motor function, normal sensory function, no focal deficits noted. [] Psychologic: Affect anxious, judgement normal, mood normal. [] Current Patient Data Vital Signs Vital Signs Date Time Temp Pulse Resp B/P (MAP) Pulse Ox O2 Delivery O2 Flow Rate FiO2 07/04/19 21:07 98.5 96 22 117/74 (88) 98 Room Air 98.5 Lab Values Laboratory Tests Test 07/04/19 21:10 07/04/19 22:05 White Blood Count 7.0 x10^3/uL (4.0-11.0) Red Blood Count 4.35 x10^6/uL (3.50-5.40) Hemoglobin 12.5 g/dL (12.0-15.5) Hematocrit 37.8 % (36.0-47.0) Mean Corpuscular Volume 87 fL (79-100) Mean Corpuscular Hemoglobin 29 pg (25-35) Mean Corpuscular Hemoglobin Concent 33 g/dL (31-37) Red Cell Distribution Width 16.8 % (11.5-14.5) H Platelet Count 171 x10^3/uL (140-400) Neutrophils (%) (Auto) 48 % (31-73) Lymphocytes (%) (Auto) 43 % (24-48) Monocytes (%) (Auto) 6 % (0-9) Eosinophils (%) (Auto) 3 % (0-3) Basophils (%) (Auto) 1 % (0-3) Neutrophils # (Auto) 3.4 x10^3/uL (1.8-7.7) Lymphocytes # (Auto) 3.0 x10^3/uL (1.0-4.8) Monocytes # (Auto) 0.4 x10^3/uL (0.0-1.1) Eosinophils # (Auto) 0.2 x10^3/uL (0.0-0.7) Basophils # (Auto) 0.0 x10^3/uL (0.0-0.2) POC Urine HCG, Qualitative Hcg negative (Negative) Laboratory Tests 07/04/19 21:10 EKG EKG [] Radiology/Procedures Radiology/Procedures [] Course & Med Decision Making Course & Med Decision Making Pertinent Labs and Imaging studies reviewed. (See chart for details) [URI symptoms with headache. This is not the worst headache of the patient's life. No no focal neurologic deficits, neck pain rash. Patient also anxious. Medications given with improvement. Recommend supportive care with PCP follow- up] Dragon Disclaimer Dragon Disclaimer This electronic medical record was generated, in whole or in part, using a voice recognition dictation system. Departure Departure Impression: Primary Impression: Headache Additional Impression: Anxiety state Disposition: HOME, SELF-CARE Condition: STABLE Referrals: NO PCP (PCP) Problem Qualifiers LEON SCHMITT DO Jul 04, 2019 22:27
[2019-07-04 23:00] VITALS: BP 106/64
== END 2019-07-04 23:11 | disposition home or self-care (01) ==
LOC: ER 20:48
DX: R51 Headache (principal); F41.9 Anxiety disorder, unspecified; R42 Dizziness and giddiness; J02.9 Acute pharyngitis, unspecified; F17.200 Nicotine dependence, unspecified, uncomplicated; Z86.73 Personal history of transient ischemic attack (TIA), and cerebral infarction without residual deficits
CPT/HCPCS: 36415; 80307; 81025; 85025; 96372; 99284; J0780; J1200

== ENCOUNTER 2019-12-20 04:02 | Emergency (ER) | payer MEDICAID ==
[~2019-12-20] VITALS: Ht 162.6 cm; Wt 65.9 kg
--- NOTE | 2019-12-20 04:12 | PHYS DOC ---
Past Medical History Past Medical History: DVT, STD Additional Past Medical Histor: gonorrhea, herpes (SHAWNEE CORDERO DO) Past Surgical History: , Tonsillectomy (SHAWNEE CORDERO DO) Smoking Status: Current Every Day Smoker Alcohol Use: Occasionally Drug Use: None (SHAWNEE CORDERO DO) General Adult EDM: Chief Complaint: RAPID HEART RATE HPI: HPI: The history was obtained from the patient. Patient is a 29-year-old female with no reported PMH who presents with a chief complaint of lightheadedness. Patient states she has felt lightheaded for the past several days. She notes that 6 of her children who have tested positive for hurley virus. She denies any objective fevers. She notes she has had decrease in intake but but denies any nausea or vomiting. Does note intermittent chest pain over the past 3 days. States it lasted approximately 20 minutes and resolve spontaneously. Denies any exertional component to this. Denies any family history of cardiac disease at young age. Denies history of blood clot in legs or lungs. Denies syncope. Does note some vaginal discharge but denies any vaginal bleeding. Is unsure if it is foul-smelling or purulent. Notes a history of STD in the past. Denies urinary symptoms. Notes she was seen at outside hospital today and saw for coronavirus. She states her results are pending and she will be notified tomorrow. Is any vertiginous symptoms. Denies ringing in the ears. Notes general fatigue and body aches. Does note a mild sore throat nasal congestion as well. No other complaints. (SHAWNEE CORDERO DO) Review of Systems: Review of Systems: Constitutional: Positive for fatigue Eyes: Denies change in visual acuity. [] HENT: Positive for sore throat and congestion Respiratory: Denies cough or shortness of breath. [] Cardiovascular: Positive for lightheadedness GI: Denies abdominal pain, nausea, vomiting, bloody stools or diarrhea. [] : Positive for vaginal discharge Musculoskeletal: Denies back pain or joint pain. [] Integument: Denies rash. [] Neurologic: Denies headache, focal weakness or sensory changes. [] Endocrine: Denies polyuria or polydipsia. [] Lymphatic: Denies swollen glands. [] Psychiatric: Denies depression or anxiety. [] (SHAWNEE CORDERO DO) Heart Score: HEART Score for Chest Pain: HEART Score for Chest Pain Response (Comments) Value History Slighlty/Non-Suspicious 0 ECG Normal 0 Age < 45 0 Risk Factors No Risk Factors 0 Troponin < Normal Limit 0 Total 0 Risk Factors: Risk Factors: DM, Current or recent (<one month) smoker, HTN, HLP, family history of CAD, obesity. Risk Scores: Score 0 - 3: 2.5% MACE over next 6 weeks - Discharge Home Score 4 - 6: 20.3% MACE over next 6 weeks - Admit for Clinical Observation Score 7 - 10: 72.7% MACE over next 6 weeks - Early Invasive Strategies (SAHWNEE OCRDERO DO) Allergies: Allergies: Allergies Coded Allergies Type Severity Reaction Last Updated Verified No Known Drug Allergies 11/22/14 No (SHAWNEE CORDERO DO) Physical Exam: PE: Constitutional: Well developed, well nourished, no acute distress, non-toxic appearance. [] HENT: Normocephalic, atraumatic, bilateral external ears normal, oropharynx moist, no oral exudates, nose normal. [] Eyes: PERRLA, EOMI, conjunctiva normal, no discharge. [] Neck: Normal range of motion, no tenderness, supple, no stridor. [] Cardiovascular:Heart rate regular rhythm, no murmur [] Lungs & Thorax: Bilateral breath sounds clear to auscultation [] Abdomen: soft, no tenderness, no masses, no pulsatile masses. [] : Chaperoned by RNHilda. Thin white vaginal discharge noted. No vaginal bleeding or clot passage visualized. Negative CMT. Skin: Warm, dry, no erythema, no rash. [] Back: No tenderness, no CVA tenderness. [] Extremities: No tenderness, no cyanosis, no clubbing, ROM intact, no edema. [] Neurologic: Alert with intact cognitive function. No aphasia, dysarthria, or neglect. GCS 15. Pupils 3 mm briskly reactive b/l. No APD present. Cranial nerves 2-12 grossly intact; no facial asymmetry present, tongue midline, shoulder shrugging strength intact. Strength 5/5 and symmetric throughout. Light touch sensation intact throughout. Cerebellar testing appropriate without evidence of dysdiadochokinesia. DTR's 2+ in all 4 extremities. Negative prona tor drift bilaterally. Gait normal Psychologic: Affect normal, judgement normal, mood normal. [] (SHAWNEE CORDERO DO) Current Patient Data: Labs: Laboratory Tests Test 12/20/19 04:15 12/20/19 04:22 12/20/19 04:34 Urine Collection Type Unknown Urine Color Yellow Urine Clarity Clear Urine pH 6.5 Urine Specific [place] <=1.005 Urine Protein Negative mg/dL Urine Glucose (UA) Negative mg/dL Urine Ketones (Stick) Negative mg/dL Urine Blood Negative Urine Nitrite Negative Urine Bilirubin Negative Urine Urobilinogen Dipstick 0.2 mg/dL Urine Leukocyte Esterase Negative Urine RBC 0 /HPF Urine WBC Occ /HPF Urine Squamous Epithelial Cells Mod /LPF Urine Bacteria Few /HPF Urine Mucus Slight /LPF White Blood Count 6.3 x10^3/uL Red Blood Count 4.37 x10^6/uL Hemoglobin 13.3 g/dL Hematocrit 40.0 % Mean Corpuscular Volume 92 fL Mean Corpuscular Hemoglobin 30 pg Mean Corpuscular Hemoglobin Concent 33 g/dL Red Cell Distribution Width 15.4 % Platelet Count 173 x10^3/uL Neutrophils (%) (Auto) 49 % Lymphocytes (%) (Auto) 41 % Monocytes (%) (Auto) 7 % Eosinophils (%) (Auto) 3 % Basophils (%) (Auto) 0 % Neutrophils # (Auto) 3.1 x10^3/uL Lymphocytes # (Auto) 2.6 x10^3/uL Monocytes # (Auto) 0.4 x10^3/uL Eosinophils # (Auto) 0.2 x10^3/uL Basophils # (Auto) 0.0 x10^3/uL D-Dimer (Emi) 1.12 ug/mlFEU Maternal Serum HCG Beta Subunit 229 mIU/mL Sodium Level 136 mmol/L Potassium Level 3.4 mmol/L Chloride Level 104 mmol/L Carbon Dioxide Level 24 mmol/L Anion Gap 8 Blood Urea Nitrogen 13 mg/dL Creatinine 0.6 mg/dL Estimated GFR (Cockcroft-Gault) 145.1 Glucose Level 114 mg/dL Calcium Level 9.4 mg/dL Troponin I Quantitative < 0.017 ng/mL Bedside Urine HCG, Qualitative Hcg positive Current Medications Medications (Trade) Dose Ordered Sig/Carl Route PRN Reason Start Time Stop Time Status Last Admin Dose Admin Sodium Chloride 1,000 ml @ 1,000 mls/hr 1X ONCE IV 12/20/19 04:30 12/20/19 05:29 DC 12/20/19 05:11 Metoclopramide HCl (Reglan) 10 mg 1X ONCE PO 12/20/19 04:45 12/20/19 04:46 DC 12/20/19 05:12 Acetaminophen (Tylenol) 1,000 mg 1X ONCE PO 12/20/19 04:45 12/20/19 04:46 DC 12/20/19 05:11 Metronidazole (Metrogel) 1 alfonso 1X ONCE VG 12/20/19 05:45 12/20/19 05:46 DC Vital Signs: Vital Signs Date Time Temp Pulse Resp B/P (MAP) Pulse Ox O2 Delivery O2 Flow Rate FiO2 12/20/19 04:02 98.3 117 20 126/61 (82) 98 Room Air 98.3 Vital Signs Date Time Temp Pulse Resp B/P (MAP) Pulse Ox O2 Delivery O2 Flow Rate FiO2 12/20/19 04:02 98.3 117 20 126/61 (82) 98 Room Air 98.3 (SHAWNEE CORDERO DO) EKG: EKG: Similar to EKG from April 08, 2018 [] EKG consistent with normal sinus rhythm. Ventricular rate of 87 bpm. [place] normal. Intervals normal. Inverted T wave in lead III. No acute ischemic changes noted. Similar to EKG from April 08, 2019 (SHAWNEE CORDERO DO) Radiology/Procedures: Radiology/Procedures: [facility] [address] [place] [address] IMAGING REPORT Signed PATIENT: ROSANNA RAMOS RACCOUNT: [id number] : 1990 LOCATION: ER AGE: 29 SEX: F EXAM STATUS: REG ER ORD. PHYSICIAN: SHAWNEE CORDERO DO REASON: CHEST PAIN, PALPITATIONS PROCEDURE: CHEST AP ONLY INDICATION: Reason: CHEST PAIN, PALPITATIONS / Spl. Instructions: / History: COMPARISON: April 08, 2019 FINDINGS: Single view of chest obtained. No focal airspace consolidation. Cardiomediastinal contour unremarkable. No acute osseous abnormality. IMPRESSION: * No focal airspace consolidation or edema. Electronically signed by: Sue Weber MD (12/20/2019 5:11 AM) [id number] DICTATED and SIGNED BY: SUE WEBER MD DATE: 12/20/19 0511 [] (SHAWNEE CORDERO DO) Course & Med Decision Making: Course & Med Decision Making Pertinent Labs and Imaging studies reviewed. (See chart for details) [] Patient is a 29-year-old female who presents with chief complaint of lightheadedness. She states she is been exposed to coronavirus at home. She was seen yesterday at an outside hospital and has coronavirus results pending at this time. She does mention that she is concerned for potential . Be ta hCG level approximately 220. Ultrasound is pending at this time however I do not suspect it to reveal intrauterine . Her abdomen was benign on my examination. D-dimer was initially obtained given her lightheadedness and some associated shortness of breath. I do feel this is most likely attributed to her current and potential viral infectious state. I did discuss the possibility of CT imaging of her chest to definitively rule out PE. Patient is declining at this time given her current . Overall do feel this is reasonable. No signs of tachypnea or hypoxia. She does understand the potential consequence of not obtaining CT PE study. SHe does appear of capacity at this time expressed understanding of her health care needs and potential consequences.. At this time ultrasound study pending. She was given intravaginal Flagyl prescription due to concern for bacterial vaginosis. I have signed out the patient's emergency department care to Dr. Sebastian. We discussed the history, physical exam findings, completed and pending laboratory results and imaging studies. We have also discussed the current treatment plan and expected clinical course. Please refer to chart for the patient's remaining emergency department course, final disposition, and clinical impression(s). (SHAWNEE CORDERO DO) Course & Med Decision Making [facility] [address] [place] [address] IMAGING REPORT Signed PATIENT: ROSANNA RAMOS RACCOUNT: [id number] : 1990 LOCATION: ER AGE: 29 SEX: F EXAM STATUS: REG ER ORD. PHYSICIAN: SHAWNEE CORDERO DO REASON: lower abdominal pain. confirm IUP PROCEDURE: OB <14 WKS W/TV INDICATION: Reason: lower abdominal pain. confirm IUP / Spl. Instructions: / History: COMPARISON: None. TECHNIQUE: Grayscale and color ultrasound images uterus and adnexa. Transvaginal images are obtained FINDINGS: Uterus: 97 x 58 x 57 mm. Cystic structures near cervix which can be nabothian cyst. Right Ovary: 37 x 25 x 24 mm. Left Ovary: 30 x 24 x 12 mm. Vascular flow identified to bilateral ovaries. 12 mm hypoechoic structure within the endometrial stripe with irregular shape. Complex cystic structure at the right ovary with septation measuring up to about 15 mm. IMPRESSION: * Within the endometrial stripe there is a irregular shaped hypoechoic structure identified. This could either be secondary to an irregular gestational sac prior to development of a pole or this could be some fluid within the endometrial stripe. Would consider obtaining a follow-up to ensure that there is appropriate development of a pole and to ensure that this is secondary to an early gestational sac rather than pseudogestational sac. * Complex cystic structure at the right ovary. This will need to be followed as well given the lack of pole seen at this time. This could be secondary to a couple of ovarian follicles but follow-up will be needed to exclude ectopic given that an intrauterine pole is not seen. Electronically signed by: Sue Weber MD (12/20/2019 7:49 AM) [id number] DICTATED and SIGNED BY: SUE WEBER MD DATE: 12/20/19 074 patient is a 29-year-old female who was evaluated in the ER today due to rapid heart rate, she was found to be , her children all tested positive for COVID-19. Patient is suspected have covic 19. Patient hCG level 229, her pelvic ultrasound showed a complex cyst on the right ovary area, patient will need to be follow-up in 2 days to have her beta hCG level rechecked to make sure she does not have ectopic . Patient is amenable to plan of care. P atient heart rate has been normalized in the ER. (EZRA SEBASTIAN DO) Marii Disclaimer: Marii Disclaimer: This electronic medical record was generated, in whole or in part, using a voice recognition dictation system. (SHAWNEE CORDERO DO) Departure Departure Impression: Primary Impression: Additional Impressions: Viral syndrome Suspected 2019 novel coronavirus infection Disposition: HOME, SELF-CARE Condition: IMPROVED Referrals: NO PCP (PCP) PREET BELLO MD PLEASE FOLLOW UP WITH THE [facility] BELOW IN 48 HOURS OR RETURN HERE IN 48 HOURS TO HAVE YOUR HCG LEVEL RECHECKED. IT IS 229 TODAY Patient Instructions: ABCs of , Viral Syndrome Additional Instructions: You have been tested for or diagnosed with COVID-19. It is an infection caused by a new type of coronavirus. COVID-19 will cause cold-like or mild flu symptoms in most. It can cause more severe symptoms like problems breathing in some. There is no treatment for COVID-19. The body will clear the infection over time. Self-care will help to ease discomfort. Steps to Take: Self-Care Rest as needed. Healthy habits may help you feel better. Steps include: Choose healthy foods including fruits and vegetables. Drink water throughout the day. Get plenty of sleep each night. If you smoke, try to quit. It may ease breathing. Avoid alcohol. Keep Others Healthy The virus can spread to others. Droplets are released every time you sneeze or cough. The droplets can get into the mouth, nose, or eyes of people near you and lead to infection. To lower the chances of spreading COVID-19 to others: Stay at home until your doctor has said it is safe to leave. If you tested positive this will mean staying isolated until both of the following are true: At least 7 days have passed since the start of illness. You are free of fever for at least 72 hours without the use of medicine. During this time: - Avoid public areas, events, or transportation. Do not return to work or school until your doctor has said it is safe to do so. - Call ahead if you need to go to a medical center. Let them know you may have COVID-19. It will help them guide you where to go. They may also ask you to wear a facemask when you come to the office. - If you call for emergency medical services, let them know you may have COVID- 19. While at home: - Try to avoid close contact with others. Stay about 6 feet away. - If possible, spend most of your time in a separate room from others. - Use a face mask if you will be in close contact with others such as sharing a room or vehicle. - Have someone wipe down common surfaces in the home. Use household defense travel administrator every day on areas like doorknobs, counters, or sinks. - Cough or sneeze into a tissue. Throw the tissue away right after use. If a tissue is not available, cough or sneeze into your elbow. - Wash your hands often. Wash them after sneezing or coughing. Use soap and water and wash for at least 20 seconds. Alcohol based hand car cleaner can be used if soap and water is not available. - Do not prepare food for others. Avoid sharing personal items like forks, spoons, or toothbrushes. - Avoid close contact with pets while you are sick. There is no evidence of the virus passing to pets. This is a safety step until more is known about this virus. Isolation can be frustrating. Social interaction can help. Keep in touch with friends and family through phone and tech options. You can still interact with others in your home, just keep a safe distance of about 6 feet. Follow-up: Your doctors office will check in with you to see if there are any changes in your health. You may be asked to keep track of symptoms to share with them. They will also let you know when you are clear to be in public again. Problems to Look Out For: Contact your doctor if your recovery is not going as you expect. Get emergency care if you have problems such as: - Trouble breathing - Nonstop chest pain or pressure - Changes in awareness, confusion, or problems waking - Lips or face have bluish color - Worsening of symptoms If you think you have an emergency, call for emergency medical services right away. As taken from [facility] Justicifation of Admission Dx: Justifications for Admission: Justification of Admission Dx: N/A (SHAWNEE CORDERO DO) Justification of Admission Dx: N/A (EZRA SEBASTIAN DO) SHAWNEE CORDERO DO Dec 20, 2019 04:12 EZRA SEBASTIAN DO Dec 20, 2019 09:42
[2019-12-20] MEDS ORDERED: IV NORMAL SALINE 1000ML BAG 1,000 ML IV ONE (04:30)
[2019-12-20] MEDS ORDERED: ACETAMINOPHEN 500 MG TABLET PO ONE (04:45)
[2019-12-20] MEDS ORDERED: METOCLOPRAMIDE 10 MG TABLET. PO ONE (04:45)
[2019-12-20 04:59] LABS: BASO % 0 % (0-3); EOS # 0.2 x10^3/uL (0.0-0.7); EOS % 3 % (0-3); HEMOGLOBIN 13.3 g/dL (12.0-15.5); LYMPH # 2.6 x10^3/uL (1.0-4.8); LYMPH % 41 % (24-48); MEAN CORPUSCULAR HEMOGLOBIN 30 pg (25-35); MEAN CORPUSCULAR HGB CONC 33 g/dL (31-37); MEAN CORPUSCULAR VOLUME 92 fL (79-100); MONO # 0.4 x10^3/uL (0.0-1.1); MONO % 7 % (0-9); NEUT # 3.1 x10^3/uL (1.8-7.7); NEUT % 49 % (31-73); PLATELET COUNT 173 x10^3/uL (140-400); RED BLOOD COUNT 4.37 x10^6/uL (3.50-5.40); RED CELL DISTRIBUTION WIDTH 15.4 % (11.5-14.5); WHITE BLOOD COUNT 6.3 x10^3/uL (4.0-11.0)
[2019-12-20 05:13] LABS: BILIRUBIN,URINE NEGATIVE (NEG); CLARITY,URINE CLEAR; COLOR,URINE YELLOW; NITRITE,URINE NEGATIVE (NEG); PH,URINE 6.5 (<5.0-8.0); PROTEIN,URINE NEGATIVE (NEG-TRACE); UROBILINOGEN,URINE 0.2 mg/dL (0.2 mg/dL)
[2019-12-20 05:14] LABS: CALCIUM 9.4 mg/dL (8.5-10.1); CREATININE 0.6 mg/dL (0.6-1.0); GFR 145.1; POTASSIUM 3.4 mmol/L (3.5-5.1)
--- NOTE | 2019-12-20 05:14 | RAD ---
INDICATION: Reason: CHEST PAIN, PALPITATIONS / Spl. Instructions: / History: COMPARISON: April 08, 2019 FINDINGS: Single view of chest obtained. No focal airspace consolidation. Cardiomediastinal contour unremarkable. No acute osseous abnormality. IMPRESSION: * No focal airspace consolidation or edema. Electronically signed by: Stevie Jackson MD (12/20/2019 5:11 AM) [id number]
[2019-12-20 05:20] LABS: BACTERIA,URINE FEW /HPF (0-FEW); RBC,URINE 0 /HPF (0-2); SQUAMOUS EPITHELIAL CELL,UR MOD /LPF; WBC,URINE OCC /HPF (0-4)
[2019-12-20] MEDS ORDERED: metroNIDAZOLE 0.75% VAGINAL 70GM TUBE. VG ONE (05:45)
--- NOTE | 2019-12-20 05:45 | EKG ---
[facility] [address] [place] [address] Test Date: 2019-12-20 Test Time: 04:06:51 Pat Name: ROSANNA RAMOS Department: Room: Gender: F [place] [employer] [employer]: : 1990 Requested By: SHAWNEE CORDERO Order Number: [id number] Reading MD: Amanuel Miles MD Measurements Intervals [place] Rate: 87 P: 59 TX: 134 QRS: 52 QRSD: 56 T: -8 QT: 334 QTc: 407 Interpretive Statements SINUS RHYTHM NON-SPECIFIC ST/T CHANGES Electronically Signed On 12-20-2019 13:19:12 CDT by Amanuel Miles MD
--- NOTE | 2019-12-20 07:52 | RAD ---
INDICATION: Reason: lower abdominal pain. confirm IUP / Spl. Instructions: / History: COMPARISON: None. TECHNIQUE: Grayscale and color ultrasound images uterus and adnexa. Transvaginal images are obtained FINDINGS: Uterus: 97 x 58 x 57 mm. Cystic structures near cervix which can be nabothian cyst. Right Ovary: 37 x 25 x 24 mm. Left Ovary: 30 x 24 x 12 mm. Vascular flow identified to bilateral ovaries. 12 mm hypoechoic structure within the endometrial stripe with irregular shape. Complex cystic structure at the right ovary with septation measuring up to about 15 mm. IMPRESSION: * Within the endometrial stripe there is a irregular shaped hypoechoic structure identified. This could either be secondary to an irregular gestational sac prior to development of a pole or this could be some fluid within the endometrial stripe. Would consider obtaining a follow-up to ensure that there is appropriate development of a pole and to ensure that this is secondary to an early gestational sac rather than pseudogestational sac. * Complex cystic structure at the right ovary. This will need to be followed as well given the lack of pole seen at this time. This could be secondary to a couple of ovarian follicles but follow-up will be needed to exclude ectopic given that an intrauterine pole is not seen. Electronically signed by: Stevie Jackson MD (12/20/2019 7:49 AM) [id number]
[2019-12-20 09:49] VITALS: BP 97/57
[2019-12-22 01:08] LABS: GC PROBE Negative (Negative)
== END 2019-12-20 09:56 | disposition home or self-care (01) ==
LOC: ER 04:02
DX: O26.891 Other specified pregnancy related conditions, first trimester (principal); B34.9 Viral infection, unspecified; R42 Dizziness and giddiness; R07.89 Other chest pain; F17.200 Nicotine dependence, unspecified, uncomplicated; Z98.890 Other specified postprocedural states; Z90.89 Acquired absence of other organs; Z86.718 Personal history of other venous thrombosis and embolism; Z3A.00 Weeks of gestation of pregnancy not specified
CPT/HCPCS: 36415; 71045; 76801; 76817; 80048; 81001; 81025; 84484; 84702; 85025; 85379; 87491; 87591; 93005; 96360; 99285; J7030; Q0111

== ENCOUNTER 2020-02-05 19:05 | Emergency (ER) | payer MEDICAID ==
[~2020-02-05] VITALS: Ht 160 cm; Wt 71.4 kg
[2020-02-05 20:22] LABS: BILIRUBIN,URINE NEGATIVE (NEG); CLARITY,URINE CLEAR; COLOR,URINE YELLOW; NITRITE,URINE NEGATIVE (NEG); PROTEIN,URINE NEGATIVE (NEG-TRACE)
[2020-02-05 20:32] LABS: BACTERIA,URINE FEW /HPF (0-FEW); RBC,URINE 0 /HPF (0-2)
--- NOTE | 2020-02-05 20:33 | PHYS DOC ---
Past Medical History Past Medical History: DVT, STD Additional Past Medical Histor: gonorrhea, herpes (ADARSH YOUNG SUPERVISOR POLICY CHANGE CLERKS) Past Surgical History: , Tonsillectomy (VALADARSH OLIVERA SUPERVISOR POLICY CHANGE CLERKS) Smoking Status: Current Every Day Smoker Alcohol Use: Occasionally Drug Use: None (ADARSH YOUNG SUPERVISOR POLICY CHANGE CLERKS) General Adult EDM: Chief Complaint: ABDOMINAL PAIN IN HPI: HPI: Patient is a 29 year old female who presents with 1 day of abdominal cramping that wraps around to her back. She states that she knows what this is and she has felt this before. She states that she has not had a bowel movement for 5 days. She states she has not taken anything to help her have a bowel movement. She denies any vaginal discharge or vaginal bleeding. She states that her pain is a 7 out of 10. Patient states for the last 2 weeks she has had. Left upper chest sharp shooting pain that goes into her shoulder and down the anterior/medial part of her arm that happens when she moves her arm. She is left-handed dominant. 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 Patient states that she does have nausea and vomiting. She states she has not been taking anything for pain. Patient states that she does see Dr. Braxton and is 10 weeks . She states her next appointment with him is February 23. She has a history of gonorrhea, herpes, DVT, and smoking. Patient denies shortness of breath, no diarrhea, dizziness, fever, dysuria symptoms, abnormal vaginal discharge, va ginal bleeding, sexually transmitted disease concerns. (ADARSH YOUNG SUPERVISOR POLICY CHANGE CLERKS) Review of Systems: Review of Systems: Constitutional: Denies fever or chills. [] Eyes: Denies change in visual acuity. [] HENT: Denies nasal congestion or sore throat. [] Respiratory: Denies cough or shortness of breath. [] Cardiovascular: +Left upper chest pain that radiates into the left shoulder and down the left arm with movement or denies edema. [] GI: + Lower cramping abdominal pain, nausea, vomiting, bloody stools or diarrhea. [] : Denies dysuria. [] Musculoskeletal: + Low back back pain or denies joint pain. [] Integument: Denies rash. [] Neurologic: Denies headache, focal weakness or sensory changes. [] Endocrine: Denies polyuria or polydipsia. [] Lymphatic: Denies swollen glands. [] Psychiatric: Denies depression or anxiety. [] (ADARSH YOUNG APRN) Heart Score: HEART Score for Chest Pain: HEART Score for Chest Pain Response (Comments) Value History Slighlty/Non-Suspicious 0 ECG Normal 0 Age < 45 0 Risk Factors No Risk Factors 0 Troponin < Normal Limit 0 Total 0 Risk Factors: Risk Factors: DM, Current or recent (<one month) smoker, HTN, HLP, family history of CAD, obesity. Risk Scores: Score 0 - 3: 2.5% MACE over next 6 weeks - Discharge Home Score 4 - 6: 20.3% MACE over next 6 weeks - Admit for Clinical Observation Score 7 - 10: 72.7% MACE over next 6 weeks - Early Invasive Strategies (ADARSH YOUNG APRN) Allergies: Allergies: Allergies Coded Allergies Type Severity Reaction Last Updated Verified No Known Drug Allergies 11/22/14 No (ADARSH YOUNG APRN) Physical Exam: PE: Constitutional: Well developed, well nourished, no acute distress, non-toxic appearance. [] HENT: Normocephalic, atraumatic, bilateral external ears normal, oropharynx moist, no oral exudates, nose normal. [] Eyes: PERRLA, EOMI, conjunctiva normal, no discharge. [] Neck: Normal range of motion, no tenderness, supple, no stridor. [] Cardiovascular:Heart rate regular rhythm, no murmur [] Lungs & Thorax: Bilateral breath sounds clear to auscultation [] Abdomen: Bowel sounds normal, soft, no tenderness, no masses, no pulsatile masses. [] Skin: Warm, dry, no erythema, no rash. [] Back: No tenderness, no CVA tenderness. [] Extremities: No tenderness, no cyanosis, no clubbing, ROM intact, no edema. [] Neurologic: Alert and oriented X 3, normal motor function, normal sensory function, no focal deficits noted. [] Psychologic: Affect normal, judgement normal, mood normal. Normal physical exam [] (ADARSH YOUNG APRN) Current Patient Data: Labs: Laboratory Tests Test 02/05/20 19:59 POC Urine HCG, Qualitative Hcg positive (Negative) Vital Signs: Vital Signs Date Time Temp Pulse Resp B/P (MAP) Pulse Ox O2 Delivery O2 Flow Rate FiO2 02/05/20 19:50 98.1 97 13 118/66 (83) 99 Room Air 98.1 (ADARSH YOUNG APRN) EKG: EK and read by Dr Ybarra as Sinus Rhythm and no STEMI[] (ADARSH YOUNG APRN) Radiology/Procedures: Radiology/Procedures: [] Impression: [facility] [address] [place] [address] IMAGING REPORT Signed PATIENT: ROSANNA RAMOS RACCOUNT: [id number] : 1990 LOCATION: ER AGE: 29 SEX: F EXAM STATUS: REG ER ORD. PHYSICIAN: ADARSH YOUNG APRN REASON: abd pain, PROCEDURE: OB <14 WKS W/TV Exam: Ultrasound OB less than 14 week Indication: Abdominal pain, Technique: Real-time grayscale and color Doppler images of the pelvis were obtained by the department forming press operator. Comparisons: None FINDINGS: Uterus measures 12 x 9.1 x 7.9 cm. Within the endometrium there is a gestational sac with pole and yolk sac. pole measures 4.1 cm corresponding to 11 weeks 0 days. heart rate is 168 bpm. Right ovary measures 4.3 x 1.5 x 1.8 cm. Left ovary measures 3.5 x 1.0 x 1.2 cm. No free fluid. IMPRESSION: 1. Single live intrauterine gestation of 11 weeks 0 days by LMP with concordant ultrasound. 2. Dedicated survey is recommended to 18-20 weeks gestation. Electronically signed by: Kevin Pop MD (02/05/2020 9:53 PM) [facility] DICTATED and SIGNED BY: KEVIN POP MD DATE: 02/05/202152 (ADARSH YOUNG APRN) Course & Med Decision Making: Course & Med Decision Making Pertinent Labs and Imaging studies reviewed. (See chart for details) See HPI. Abdomen is soft and nontender. Alert and oriented x4. Ambulatory with a steady gait. Lungs are clear to auscultation all lobes. Speaks in full complete sentences. After enema patient had a moderate amount of bowel movement. She states she still feels constipated but feels better. She states she is more comfortable. Ultrasound shows no acute findings. Blood work is unremarkable. No UTI. [] (ADRASH YOUNG APRN) Dragon Disclaimer: Dragon Disclaimer: This electronic medical record was generated, in whole or in part, using a voice recognition dictation system. (ADARSH YOUNG APRN) Departure Departure Impression: Primary Impression: Constipation during Qualified Codes: O99.619 - Diseases of the digestive system complicating , unspecified trimester; K59.00 - Constipation, unspecified Additional Impression: Abdominal pain affecting Disposition: 01 DC HOME SELF CARE/HOMELESS Condition: STABLE Referrals: NO PCP (PCP) NO BRAXTON Jr, MD Patient Instructions: ABCs of , Abdominal Pain During , [id number], Constipation, Adult, [id number] Additional Instructions: Follow-up with Dr. Braxton as scheduled or sooner if continued discomfort. Take senna every day to help with constipation. Drink plenty of fluids. Eat a high- fiber diet. Scripts Sennosides/Docusate Sodium (SENNA PLUS TABLET) 1 Each Tablet 1 TAB PO DAILY for 20 Days, #20 TAB 0 Refills Prov: ADARSH YOUNG APRN 02/05/20 Attending Signature Attending Signature I have reviewed the PA/BOOK SOLICITOR's note and plan of care. I was available for co nsultation as needed during the patient's visit in the emergency department. I agree with the clinical impression, plan, and disposition. (PREET YBARRA DO) ADARSH YOUNG APRN Feb 05, 2020 20:33 PREET YBARRA DO Feb 06, 2020 00:46
[2020-02-05 20:40] LABS: BASO # 0.1 x10^3/uL (0.0-0.2); BASO % 1 % (0-3); EOS # 0.1 x10^3/uL (0.0-0.7); EOS % 2 % (0-3); HEMATOCRIT 36.2 % (36.0-47.0); HEMOGLOBIN 12.4 g/dL (12.0-15.5); LYMPH # 2.3 x10^3/uL (1.0-4.8); LYMPH % 35 % (24-48); MEAN CORPUSCULAR HEMOGLOBIN 32 pg (25-35); MEAN CORPUSCULAR HGB CONC 34 g/dL (31-37); MEAN CORPUSCULAR VOLUME 93 fL (79-100); MONO # 0.3 x10^3/uL (0.0-1.1); MONO % 5 % (0-9); NEUT # 3.8 x10^3/uL (1.8-7.7); NEUT % 57 % (31-73); PLATELET COUNT 155 x10^3/uL (140-400); RED BLOOD COUNT 3.91 x10^6/uL (3.50-5.40); RED CELL DISTRIBUTION WIDTH 14.1 % (11.5-14.5); WHITE BLOOD COUNT 6.6 x10^3/uL (4.0-11.0)
[2020-02-05] MEDS ORDERED: SODIUM PHOSPHATES 19/7GM 133 ML ENEMA. PR ONE (20:45)
[2020-02-05 20:56] LABS: CREATININE 0.6 mg/dL (0.6-1.0); GFR 145.1; POTASSIUM 3.7 mmol/L (3.5-5.1); PROTHROMBIN TIME PATIENT 13.3 SEC (11.7-14.0)
[2020-02-05 21:02] LABS: ALBUMIN 3.4 g/dL (3.4-5.0); ALBUMIN/GLOBULIN RATIO 0.9 (1.0-1.7); TOTAL BILIRUBIN 0.2 mg/dL (0.2-1.0); TOTAL PROTEIN 7.3 g/dL (6.4-8.2)
[2020-02-05 21:54] VITALS: BP 111/75
--- NOTE | 2020-02-05 21:56 | RAD ---
Exam: Ultrasound OB less than 14 week Indication: Abdominal pain, Technique: Real-time grayscale and color Doppler images of the pelvis were obtained by the department aegis console operator track. Comparisons: None FINDINGS: Uterus measures 12 x 9.1 x 7.9 cm. Within the endometrium there is a gestational sac with pole and yolk sac. pole measures 4.1 cm corresponding to 11 weeks 0 days. heart rate is 168 bpm. Right ovary measures 4.3 x 1.5 x 1.8 cm. Left ovary measures 3.5 x 1.0 x 1.2 cm. No free fluid. IMPRESSION: 1. Single live intrauterine gestation of 11 weeks 0 days by LMP with concordant ultrasound. 2. Dedicated survey is recommended to 18-20 weeks gestation. Electronically signed by: Kevin Urena MD (02/05/2020 9:53 PM) DARVIN
[2020-02-05] MEDS ORDERED: SENN1TAB62 PO (22:03)
--- NOTE | 2020-02-06 08:39 | EKG ---
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
== END 2020-02-05 22:11 | disposition home or self-care (01) ==
LOC: ER 19:05
DX: O99.619 Diseases of the digestive system complicating pregnancy, unspecified trimester (principal); K59.00 Constipation, unspecified; O21.9 Vomiting of pregnancy, unspecified; Z86.718 Personal history of other venous thrombosis and embolism; O99.331 Smoking (tobacco) complicating pregnancy, first trimester; Z3A.11 11 weeks gestation of pregnancy
CPT/HCPCS: 36415; 76801; 76817; 80053; 81001; 81025; 84484; 84702; 85025; 85610; 93005; 99285-25

== ENCOUNTER 2020-03-25 21:30 | Emergency (ER) | payer MEDICAID ==
[~2020-03-25] VITALS: Ht 160 cm; Wt 70.9 kg
[~2020-03-25 21:30] MED LIST changes: +SENN1TAB62 PO
--- NOTE | 2020-03-25 22:10 | ED.ADGEN ---
Past Medical History Past Medical History: DVT, STD, Other Additional Past Medical Histor: gonorrhea, herpes Past Surgical History: , Tonsillectomy Smoking Status: Current Every Day Smoker Alcohol Use: None Drug Use: None General Adult EDM: Chief Complaint: VAGINAL BLEEDING HPI: HPI: Patient is a 29 year old at 17 weeks gestational age female coming in for vaginal bleeding. Patient states she was at work and sitting she use the restroom she had a grape size dark red blood clot followed by some bright red color blood that has now tapered off to just pain tinged. Denies any vaginal bleeding. Has mild cramping in the suprapubic and left abdomen. Has a history of miscarriage at 13 weeks. Patient states her blood type is O+. No complications with this , but patient states she has had intermittent vaginal bleeding and spotting with all of her pregnancies. Denies any dysuria. Denies any other recent illness, denies fever, headache, vomiting, diarrhea Review of Systems: Review of Systems: Negative other than HPI Current Medications: Current Medications Medications (Trade) Dose Ordered Sig/Carl Start Time Stop Time Status Last Admin Dose Admin Fentanyl Citrate (Fentanyl 2ml Vial) 75 mcg 1X ONCE 03/26/20 00:00 03/26/20 00:01 Cancel Allergies: Allergies: Allergies Coded Allergies Type Severity Reaction Last Updated Verified No Known Drug Allergies 11/22/14 No Physical Exam: PE: Constitutional: Well developed, well nourished, no acute distress, non-toxic appearance. [] HENT: Normocephalic, atraumatic, bilateral external ears normal, oropharynx moist, no oral exudates, nose normal. [] Eyes: PERRLA, EOMI, conjunctiva normal, no discharge. [] Neck: Normal range of motion, no tenderness, supple, no stridor. [] Cardiovascular:Heart rate regular rhythm, no murmur [] Lungs & Thorax: Bilateral breath sounds clear to auscultation [] Abdomen: Soft, uterus above pill umbilicus, no guarding or rebound, mild tenderness in suprapubic area and left lower quadrant Skin: Warm, dry, no erythema, no rash. [] Back: No tenderness, no CVA tenderness. [] Extremities: No tenderness, no cyanosis, no clubbing, ROM intact, no edema. [] Neurologic: Alert and oriented X 3, normal motor function, normal sensory function, no focal deficits noted. [] Psychologic: Affect normal, judgement normal, mood normal. [] Current Patient Data: Labs: Laboratory Tests Test 03/25/20 21:40 03/25/20 21:42 Urine Collection Type Unknown Urine Color Yellow Urine Clarity Clear Urine pH 6.5 (<5.0-8.0) Urine Specific Reagan 1.020 (1.000-1.030) Urine Protein Negative mg/dL (NEG-TRACE) Urine Glucose (UA) Negative mg/dL (NEG) Urine Ketones (Stick) Negative mg/dL (NEG) Urine Blood Large (NEG) Urine Nitrite Negative (NEG) Urine Bilirubin Negative (NEG) Urine Urobilinogen Dipstick 1.0 mg/dL (0.2 mg/dL) Urine Leukocyte Esterase Negative (NEG) Urine RBC >40 /HPF (0-2) Urine WBC Occ /HPF (0-4) Urine Squamous Epithelial Cells Mod /LPF Urine Bacteria Few /HPF (0-FEW) Urine Mucus Mod /LPF POC Urine HCG, Qualitative Hcg positive (Negative) Microbiology 03/25/20 Wet Prep - Final, Complete Vital Signs: Vital Signs Date Time Temp Pulse Resp B/P (MAP) Pulse Ox O2 Delivery O2 Flow Rate FiO2 03/25/20 22:43 98 18 101/62 (75) 96 Room Air 03/25/20 21:45 98.5 98.5 EKG: EKG: [] Heart Score: Risk Factors: Risk Factors: DM, Current or recent (<one month) smoker, HTN, HLP, family his tory of CAD, obesity. Risk Scores: Score 0 - 3: 2.5% MACE over next 6 weeks - Discharge Home Score 4 - 6: 20.3% MACE over next 6 weeks - Admit for Clinical Observation Score 7 - 10: 72.7% MACE over next 6 weeks - Early Invasive Strategies Radiology/Procedures: Radiology/Procedures: OB LIMITED History: Reason: vaginal bleeding 17 wga / Spl. Instructions: / History: Comparison: December 20, 2019 and February 05, 2020 Technique: Multiple grayscale images, color Doppler, and M-mode images of the uterus are obtained. Findings: There is a single intrauterine gestation in variable presentation. The placenta is low-lying in the posterior wall and potentially represents placenta previa. The amount of amniotic fluid appears appropriate. Amniotic fluid index is within normal limits. Cervical length is 4.4 cm. Biometrical data: BPD = 3.8 cm for 17 weeks 4 days. HC = 14.7 cm for 17 weeks 6 days. AC = 11.9 cm for 17 weeks 4 days. FL = 2.7 cm for 18 weeks 4 days. HC/AC ratio = 1.24. Overall, the estimated sonographic gestational age is 17 weeks and 6 days for an estimated date of delivery of August 27, 2020. The estimated date of delivery provided by the last menstrual period is August 26, 2020. Estimated weight is 221 grams. movement is identified. There is cardiac activity with heart rate 149 bpm. Impression: 1. Single intrauterine gestation with estimated gestational age 17 weeks 6 days with heart rate 149 bpm. Recommend routine anatomic screening at 18-22 weeks. 2. Placenta previa versus low-lying placenta. Recommend attention on follow-up ultrasound.[] Course & Med Decision Making: Course & Med Decision Making Pertinent Labs and Imaging studies reviewed. (See chart for details) [] Dragon Disclaimer: Dragon Disclaimer: This electronic medical record was generated, in whole or in part, using a voice recognition dictation system. Departure Departure Impression: Primary Impression: Low lying placenta with hemorrhage, second trimester Additional Impression: Bacterial vaginosis in Disposition: 01 DC HOME SELF CARE/HOMELESS Condition: STABLE Referrals: NO ANDERSON Jr, MD Patient Instructions: Pelvic Rest Scripts Metronidazole (METRONIDAZOLE) 250 Mg Tablet 1 TAB PO TID for BV for 7 Days, #21 TAB Prov: HOLA DUNN MD 03/25/20 Problem Qualifiers HOLA DUNN MD Mar 25, 2020 22:10
[2020-03-25 22:41] LABS: BILIRUBIN,URINE NEGATIVE (NEG); CLARITY,URINE CLEAR; COLOR,URINE YELLOW; NITRITE,URINE NEGATIVE (NEG); PH,URINE 6.5 (<5.0-8.0); PROTEIN,URINE NEGATIVE (NEG-TRACE)
[2020-03-25 22:43] VITALS: BP 101/62
[2020-03-25 22:48] LABS: BACTERIA,URINE FEW /HPF (0-FEW); RBC,URINE >40 /HPF (0-2)
[2020-03-25 22:50] LABS: WBC,URINE OCC /HPF (0-4)
--- NOTE | 2020-03-25 23:21 | RAD ---
OB LIMITED History: Reason: vaginal bleeding 17 wga / Spl. Instructions: / History: Comparison: December 20, 2019 and February 05, 2020 Technique: Multiple grayscale images, color Doppler, and M-mode images of the uterus are obtained. Findings: There is a single intrauterine gestation in variable presentation. The placenta is low-lying in the posterior wall and potentially represents placenta previa. The amount of amniotic fluid appears appropriate. Amniotic fluid index is within normal limits. Cervical length is 4.4 cm. Biometrical data: BPD = 3.8 cm for 17 weeks 4 days. HC = 14.7 cm for 17 weeks 6 days. AC = 11.9 cm for 17 weeks 4 days. FL = 2.7 cm for 18 weeks 4 days. HC/AC ratio = 1.24. Overall, the estimated sonographic gestational age is 17 weeks and 6 days for an estimated date of delivery of August 27, 2020. The estimated date of delivery provided by the last menstrual period is August 26, 2020. Estimated weight is 221 grams. movement is identified. There is cardiac activity with heart rate 149 bpm. Impression: 1. Single intrauterine gestation with estimated gestational age 17 weeks 6 days with heart rate 149 bpm. Recommend routine anatomic screening at 18-22 weeks. 2. Placenta previa versus low-lying placenta. Recommend attention on follow-up ultrasound. Electronically signed by: Izaiah Cifuentes DO (03/25/2020 11:17 PM) [facility]
[2020-03-25] MEDS ORDERED: METR-111 PO (23:55)
[2020-03-26] MEDS ORDERED: fentaNYL PF VIAL 100 MCG/2 ML VIAL IVP ONE
[2020-03-27 19:40] LABS: GC PROBE Negative (Negative)
== END 2020-03-26 00:40 | disposition home or self-care (01) ==
LOC: ER 21:30
DX: O44.52 Low lying placenta with hemorrhage, second trimester (principal); O23.592 Infection of other part of genital tract in pregnancy, second trimester; B96.89 Other specified bacterial agents as the cause of diseases classified elsewhere; O99.332 Smoking (tobacco) complicating pregnancy, second trimester; Z3A.17 17 weeks gestation of pregnancy; Z86.718 Personal history of other venous thrombosis and embolism
CPT/HCPCS: 76815; 81001; 81025; 87491; 87591; 99284; Q0111

== ENCOUNTER → 2020-04-14 | Outpatient (CLI) | payer MEDICAID ==
[2020-03-25 22:43] VITALS: BP 101/62
[~2020-04-14] MED LIST changes: +METR-111 PO
--- NOTE | 2020-04-14 18:04 | RAD ---
EXAM: Ultrasound OB Greater than 14 weeks INDICATION: Reason: SIZE AND DATES / Spl. Instructions: / History: TECHNIQUE: Real-time obstetrical ultrasound was performed with permanent freeze-frame documentation. COMPARISON: Limited OB ultrasound 03/25/2020 FINDINGS: POSITION: Breech HEART RATE: 152 bpm ALMITA: Subjectively adequate. Not measured on this exam. PLACENTA: fundal CERVICAL LENGTH: 4.2 cm MATERNAL UTERUS: Unremarkable. MATERNAL ADNEXA: Unremarkable. AGE/DATES: Gestational Age by LMP: 19 weeks 3 days Gestation Age by US: 20 weeks 2 days EDC by LMP: September 05, 2020 EDC by US: August 30, 2020 WEIGHT: 339 grams +/- 50 grams PERCENTILE WEIGHT: Not estimated BIOMETRIC PARAMETERS: BPD: 4.6 cm corresponding with 20 weeks 0 days HC: 17.8 cm corresponding with 20 weeks 2 days AC: 14.3 cm corresponding with 19 weeks 5 days FL: 3.5 cm corresponding with 20 weeks 6 days ANATOMY: CARDIAC: Normal four chamber heart. Normal right and left ventricular outflow tracts. UMBILICAL CORD: Normal 3 vessel cord. Normal cord insertion. BRAIN: Unremarkable. NOSE/LIPS: Unremarkable. SPINE: Unremarkable. EXTREMITIES: Unremarkable. STOMACH: Unremarkable. KIDNEYS: Unremarkable. BLADDER: Unremarkable. IMPRESSION: Normal OB ultrasound demonstrating a single viable fetus in breech position. Estimated gestational ag e of 20 weeks 2 days and EDC of August 30, 2020. Electronically signed by: Aditi Cerna MD (04/14/2020 6:02 PM) [id number]
== END ==
LOC: US 15:43
PROVIDERS: ATTEND Obstetrics & Gynecology
DX: O26.842 Uterine size-date discrepancy, second trimester (principal); Z3A.19 19 weeks gestation of pregnancy
CPT/HCPCS: 76805

== ENCOUNTER 2020-06-03 22:23 | Observation (INO) | payer MEDICAID ==
[~2020-06-03 22:23] MED LIST changes: -CLIN150C14 PO; +CLIN150C15 PO
[2020-06-03] MEDS ORDERED: IV RINGERS,LACTATED 1000ML 1,000 ML IV SCH (22:30)
[2020-06-03 22:57] LABS: BILIRUBIN,URINE NEGATIVE (NEG); CLARITY,URINE CLOUDY; COLOR,URINE YELLOW; NITRITE,URINE NEGATIVE (NEG); PH,URINE 6.5 (<5.0-8.0); PROTEIN,URINE NEGATIVE (NEG-TRACE); UROBILINOGEN,URINE 0.2 mg/dL (0.2 mg/dL)
[2020-06-03 23:02] LABS: BARBITURATES NEG (NEG); BENZODIAZEPINES NEG (NEG); CANNABINOIDS NEG (NEG); COCAINE NEG (NEG); METHADONE NEG (NEG); OPIATES NEG (NEG); PHENCYCLIDINE NEG (NEG)
[2020-06-03 23:03] LABS: AMPHETAMINE/METHAMPHETAMINE NEG (NEG)
[2020-06-03 23:04] LABS: BACTERIA,URINE FEW /HPF (0-FEW); RBC,URINE OCC /HPF (0-2)
[2020-06-03] MEDS ORDERED: ACETAMINOPHEN 500 MG TABLET PO ONE (23:45)
== END 2020-06-03 23:45 | disposition home or self-care (01) ==
LOC: 3 SO LND 22:23
PROVIDERS: ADMIT Obstetrics & Gynecology; ATTEND Obstetrics & Gynecology
DX: O26.893 Other specified pregnancy related conditions, third trimester (principal); R10.9 Unspecified abdominal pain; F41.0 Panic disorder [episodic paroxysmal anxiety]; Z3A.28 28 weeks gestation of pregnancy; Z98.891 History of uterine scar from previous surgery; Z79.899 Other long term (current) drug therapy
CPT/HCPCS: 59025; 80307; 81001; 87086; G0378; G0379

== ENCOUNTER 2020-08-19 12:51 | Emergency (ER) | payer MEDICAID ==
[~2020-08-19] VITALS: Ht 160 cm; Wt 68.0 kg
[2020-08-19 13:10] VITALS: BP 114/79
[2020-08-19 14:26] LABS: BASO # 0.1 x10^3/uL (0.0-0.2); BASO % 2 % (0-3); EOS # 0.2 x10^3/uL (0.0-0.7); EOS % 3 % (0-3); HEMATOCRIT 35.4 % (36.0-47.0); HEMOGLOBIN 11.4 g/dL (12.0-15.5); LYMPH # 2.6 x10^3/uL (1.0-4.8); LYMPH % 39 % (24-48); MEAN CORPUSCULAR HEMOGLOBIN 29 pg (25-35); MEAN CORPUSCULAR HGB CONC 32 g/dL (31-37); MEAN CORPUSCULAR VOLUME 88 fL (79-100); MONO # 0.5 x10^3/uL (0.0-1.1); MONO % 7 % (0-9); NEUT # 3.3 x10^3/uL (1.8-7.7); NEUT % 50 % (31-73); PLATELET COUNT 177 x10^3/uL (140-400); RED BLOOD COUNT 4.02 x10^6/uL (3.50-5.40); RED CELL DISTRIBUTION WIDTH 16.9 % (11.5-14.5); WHITE BLOOD COUNT 6.7 x10^3/uL (4.0-11.0)
--- NOTE | 2020-08-19 14:33 | ED.ADGEN ---
Past Medical History Past Medical History: DVT, STD, Other Additional Past Medical Histor: gonorrhea, herpes; trichomoniasis Past Surgical History: , Tonsillectomy Smoking Status: Current Every Day Smoker Alcohol Use: None Drug Use: None General Adult EDM: Chief Complaint: VAGINAL BLEEDING HPI: HPI: Patient is 30-year-old G6, P5 who presents to the emergency room complaining of vaginal bleeding since her delivery 7 weeks ago. Patient states that after her delivery she did go to the emergency room for bleeding and at that time they did an ultrasound that showed a small amount of retained products and she was given medication to help pass them. She states that her bleeding did get better after that. She states that she then started having bleeding again a couple of days ago. She states that she has passed some blood clots. She is not sure if this is her normal period or not. She denies any lightheadedness, chest pain, shortness of breath. She went to an ARTIST'S MANAGER appointment today but her appointment was actually yesterday. They told her if she is having continued bleeding that she should go to the emergency room. Patient was supposed to to the emergency room at [facility] which is where she delivered her child. Patient came here because this is closer to her home. Review of Systems: Review of Systems: Complete ROS is negative unless otherwise documented in HPI Allergies: Allergies: Allergies Coded Allergies Type Severity Reaction Last Updated Verified No Known Drug Allergies 11/22/14 No Physical Exam: PE: General: Awake, alert, NAD. Well Nourished, well hydrated. Cooperative HEENT: Atraumatic, EOMI, PERRL, airway patent, moist oral mucosa Neck: Supple, trachea midline Respiratory: CTA bilaterally, normal effort, no wheezing/crackles CV: RRR, no murmur, cap refill <2 GI: Soft, nondistended, nontender, no masses MSK: No obvious deformities Skin: Warm, dry, intact Neuro: A&O x3, speech NL, sensory and motor grossly intact, no focal deficits Psych: Normal affect, normal mood, not suicidal or homicidal Current Patient Data: Labs: Laboratory Tests Test 08/19/20 14:20 White Blood Count 6.7 x10^3/uL (4.0-11.0) Red Blood Count 4.02 x10^6/uL (3.50-5.40) Hemoglobin 11.4 g/dL (12.0-15.5) L Hematocrit 35.4 % (36.0-47.0) L Mean Corpuscular Volume 88 fL (79-100) Mean Corpuscular Hemoglobin 29 pg (25-35) Mean Corpuscular Hemoglobin Concent 32 g/dL (31-37) Red Cell Distribution Width 16.9 % (11.5-14.5) H Platelet Count 177 x10^3/uL (140-400) Neutrophils (%) (Auto) 50 % (31-73) Lymphocytes (%) (Auto) 39 % (24-48) Monocytes (%) (Auto) 7 % (0-9) Eosinophils (%) (Auto) 3 % (0-3) Basophils (%) (Auto) 2 % (0-3) Neutrophils # (Auto) 3.3 x10^3/uL (1.8-7.7) Lymphocytes # (Auto) 2.6 x10^3/uL (1.0-4.8) Monocytes # (Auto) 0.5 x10^3/uL (0.0-1.1) Eosinophils # (Auto) 0.2 x10^3/uL (0.0-0.7) Basophils # (Auto) 0.1 x10^3/uL (0.0-0.2) Laboratory Tests 08/19/20 14:20 Vital Signs: Vital Signs Date Time Temp Pulse Resp B/P (MAP) Pulse Ox O2 Delivery O2 Flow Rate FiO2 08/19/20 13:10 98.3 94 16 114/79 (91) 100 Room Air 98.3 EKG: EKG: [] Heart Score: C/O Chest Pain: N/A Risk Factors: Risk Factors: DM, Current or recent (<one month) smoker, HTN, HLP, family history of CAD, obesity. Risk Scores: Score 0 - 3: 2.5% MACE over next 6 weeks - Discharge Home Score 4 - 6: 20.3% MACE over next 6 weeks - Admit for Clinical Observation Score 7 - 10: 72.7% MACE over next 6 weeks - Early Invasive Strategies Radiology/Procedures: Radiology/Procedures: [] Course & Med Decision Making: Course & Med Decision Making Pertinent Labs and Imaging studies reviewed. (See chart for details) Patient is 30-year-old female presents to the emergency room with vaginal bleeding 6 weeks post . Ultrasound will be done to evaluate if she has any further retained products. CBC will be done to evaluate for any signs of anemia. Ultrasound is normal. Patient's test results and vitals while in the ED were fully reviewed and discussed with the patient. Patient is stable and at this time does not need admission to the hospital. We have discussed strict return precautions and the importance of following up with their Primary Care Physician. Patient stated understanding and was given an opportunity to ask any questions. Patient is in agreement with plan. Dragon Disclaimer: Dragon Disclaimer: This electronic medical record was generated, in whole or in part, using a voice recognition dictation system. Departure Departure Impression: Primary Impression: bleeding Disposition: HOME / SELF CARE / HOMELESS Condition: STABLE Referrals: NO PCP (PCP) Patient Instructions: Uterine Bleeding, Dysfunctional LUIS UGARTE MD August 19, 2020 14:33
--- NOTE | 2020-08-19 15:18 | RAD ---
US PELVIS COMPLETE History: Reason: bleeding / Spl. Instructions: / History: Comparison: None Technique: Grayscale and color Doppler imaging of the pelvis was performed using transabdominal techn ique. Findings: The uterus measures 9.8 x 6.6 x 5.9 cm. Uterus has an unremarkable appearance. The endometrial stri pe measures 1.6 centimeters. No ultrasound evidence of retained products of conception. Right ovary measures 4.2 x 2.2 x 1.9 cm. Left ovary measures 4.1 x 2.0 x 2.1 cm. Normal Doppler flow to the ovaries. No adnexal masses are seen. IMPRESSION: 1. Unremarkable pelvic ultrasound. Electronically signed by: Izaiah Cifuentes DO (08/19/2020 3:16 PM) [id number]
== END 2020-08-19 16:10 | disposition home or self-care (01) ==
LOC: ER 12:51
DX: O72.1 Other immediate postpartum hemorrhage (principal); F17.200 Nicotine dependence, unspecified, uncomplicated; Z86.718 Personal history of other venous thrombosis and embolism
CPT/HCPCS: 36415; 76856; 85025; 99284-25

== ENCOUNTER 2020-10-15 14:00 | Inpatient (IN) | payer MEDICAID ==
[~2020-10-15] VITALS: Ht 160 cm; Wt 69.5 kg
[2020-10-15 15:08] LABS: BILIRUBIN,URINE NEGATIVE (NEG); CLARITY,URINE CLOUDY; COLOR,URINE RED; NITRITE,URINE NEGATIVE (NEG); PROTEIN,URINE 100 mg/dL (NEG-TRACE)
[2020-10-15 15:20] LABS: RBC,URINE TNTC /HPF (0-2)
[2020-10-15 15:21] LABS: AMORPHOUS SEDIMENT,UR PRESENT /HPF; BACTERIA,URINE FEW /HPF (0-FEW)
[2020-10-15 15:23] LABS: U PREG PATIENT POSITIVE (NEG)
[2020-10-15 15:47] LABS: BASO % 1 % (0-3); EOS # 0.1 x10^3/uL (0.0-0.7); EOS % 2 % (0-3); HEMATOCRIT 34.5 % (36.0-47.0); HEMOGLOBIN 11.1 g/dL (12.0-15.5); LYMPH # 2.2 x10^3/uL (1.0-4.8); LYMPH % 40 % (24-48); MEAN CORPUSCULAR HEMOGLOBIN 27 pg (25-35); MEAN CORPUSCULAR HGB CONC 32 g/dL (31-37); MEAN CORPUSCULAR VOLUME 84 fL (79-100); MONO # 0.4 x10^3/uL (0.0-1.1); MONO % 8 % (0-9); NEUT # 2.8 x10^3/uL (1.8-7.7); NEUT % 50 % (31-73); PLATELET COUNT 175 x10^3/uL (140-400); RED BLOOD COUNT 4.11 x10^6/uL (3.50-5.40); RED CELL DISTRIBUTION WIDTH 19.5 % (11.5-14.5); WHITE BLOOD COUNT 5.7 x10^3/uL (4.0-11.0)
[2020-10-15 15:56] LABS: CALCIUM 8.8 mg/dL (8.5-10.1); CREATININE 0.6 mg/dL (0.6-1.0); POTASSIUM 3.9 mmol/L (3.5-5.1)
[2020-10-15 16:02] LABS: ALBUMIN 3.3 g/dL (3.4-5.0); TOTAL BILIRUBIN 0.1 mg/dL (0.2-1.0); TOTAL PROTEIN 6.7 g/dL (6.4-8.2)
--- NOTE | 2020-10-15 16:21 | PHYS DOC ---
Past Medical History Past Medical History: DVT, STD, Other Additional Past Medical Histor: gonorrhea, herpes; trichomoniasis Past Surgical History: , Tonsillectomy, Other Additional Past Surgical Histo: D&C Smoking Status: Current Every Day Smoker Additional Information: 0.5 PPD Alcohol Use: None Drug Use: None General Adult EDM: Chief Complaint: VAGINAL BLEEDING HPI: HPI: Patient is a 30 year old female 7 para 6 (1 twin with one baby from sids), 1 miscarriage, (5 living children) who presents to the ED today concerned she could be , she states she started bleeding today he nce the reason she came to the ED. Patient states she did a home test that had a faint positive line yesterday. She states her last menstrual cycle was around June. She states she had a baby June 2020. She states she has 5 living children. She states she passed some big clots today prior to coming to the ED. She is also complaining of mild intermittent abdominal cramping. Review of Systems: Review of Systems: Constitutional: Denies fever or chills. [] Eyes: Denies change in visual acuity. [] HENT: Denies nasal congestion or sore throat. [] Respiratory: Denies cough or shortness of breath. [] Cardiovascular: Denies chest pain or edema. [] GI: Reports abdominal pain in , vaginal bleeding, denies nausea, vomiting, bloody stools or diarrhea. [] : Denies dysuria. [] Musculoskeletal: Denies back pain or joint pain. [] Integument: Denies rash. [] Neurologic: Denies headache, focal weakness or sensory changes. [] Psychiatric: Denies depression or anxiety. [] Heart Score: C/O Chest Pain: N/A Risk Factors: Risk Factors: DM, Current or recent (<one month) smoker, HTN, HLP, family history of CAD, obesity. Risk Scores: Score 0 - 3: 2.5% MACE over next 6 weeks - Discharge Home Score 4 - 6: 20.3% MACE over next 6 weeks - Admit for Clinical Observation Score 7 - 10: 72.7% MACE over next 6 weeks - Early Invasive Strategies Allergies: Allergies: Allergies Coded Allergies Type Severity Reaction Last Updated Verified No Known Drug Allergies 11/22/14 No Physical Exam: PE: Constitutional: Well developed, well nourished, no acute distress, non-toxic appearance. [] HENT: Normocephalic, atraumatic, bilateral external ears normal, oropharynx moist, no oral exudates, nose normal. [] Eyes: PERRLA, EOMI, conjunctiva normal, no discharge. [] Neck: Normal range of motion, no tenderness, supple, no stridor. [] Cardiovascular:Heart rate regular rhythm, no murmur [] Lungs & Thorax: Bilateral breath sounds clear to auscultation [] Abdomen: Bowel sounds normal, soft, no tenderness, no masses, no pulsatile masses. [] Pelvic exam External pelvic has small amount of bright red blood, cervix is visualized, no CMT, no adnexal tenderness, small amount of bright red blood in the vaginal vault Skin: Warm, dry, no erythema, no rash. [] Back: No tenderness, no CVA tenderness. [] Extremities: No tenderness, no cyanosis, no clubbing, ROM intact, no edema. [] Neurologic: Alert and oriented X 3, normal motor function, normal sensory function, no focal deficits noted. [] Psychologic: Affect normal, judgement normal, mood normal. [] Current Patient Data: Labs: Laboratory Tests Test 10/15/20 14:23 10/15/20 15:39 Urine Collection Type Unknown Urine Color Red Urine Clarity Cloudy Urine pH 6.0 (<5.0-8.0) Urine Specific [place] 1.025 (1.000-1.030) Urine Protein 100 mg/dL (NEG-TRACE) Urine Glucose (UA) Negative mg/dL (NEG) Urine Ketones (Stick) Trace mg/dL (NEG) Urine Blood Large (NEG) Urine Nitrite Negative (NEG) Urine Bilirubin Negative (NEG) Urine Urobilinogen Dipstick 1.0 mg/dL (0.2 mg/dL) Urine Leukocyte Esterase Small (NEG) Urine RBC Tntc /HPF (0-2) Urine WBC 1-4 /HPF (0-4) Urine Squamous Epithelial Cells Mod /LPF Urine Amorphous Sediment Present /HPF Urine Bacteria Few /HPF (0-FEW) Urine Mucus Marked /LPF Urine Test Positive (NEG) White Blood Count 5.7 x10^3/uL (4.0-11.0) Red Blood Count 4.11 x10^6/uL (3.50-5.40) Hemoglobin 11.1 g/dL (12.0-15.5) L Hematocrit 34.5 % (36.0-47.0) L Mean Corpuscular Volume 84 fL (79-100) Mean Corpuscular Hemoglobin 27 pg (25-35) Mean Corpuscular Hemoglobin Concent 32 g/dL (31-37) Red Cell Distribution Width 19.5 % (11.5-14.5) H Platelet Count 175 x10^3/uL (140-400) Neutrophils (%) (Auto) 50 % (31-73) Lymphocytes (%) (Auto) 40 % (24-48) Monocytes (%) (Auto) 8 % (0-9) Eosinophils (%) (Auto) 2 % (0-3) Basophils (%) (Auto) 1 % (0-3) Neutrophils # (Auto) 2.8 x10^3/uL (1.8-7.7) Lymphocytes # (Auto) 2.2 x10^3/uL (1.0-4.8) Monocytes # (Auto) 0.4 x10^3/uL (0.0-1.1) Eosinophils # (Auto) 0.1 x10^3/uL (0.0-0.7) Basophils # (Auto) 0.0 x10^3/uL (0.0-0.2) Sodium Level 137 mmol/L (136-145) Potassium Level 3.9 mmol/L (3.5-5.1) Chloride Level 106 mmol/L (98-107) Carbon Dioxide Level 25 mmol/L (21-32) Anion Gap 6 (6-14) Blood Urea Nitrogen 10 mg/dL (7-20) Creatinine 0.6 mg/dL (0.6-1.0) Estimated GFR (Cockcroft-Gault) 144.0 BUN/Creatinine Ratio 17 (6-20) Glucose Level 87 mg/dL (70-99) Calcium Level 8.8 mg/dL (8.5-10.1) Total Bilirubin 0.1 mg/dL (0.2-1.0) L Aspartate Amino Transferase (AST) 15 U/L (15-37) Alanine Aminotransferase (ALT) 51 U/L (14-59) Alkaline Phosphatase 75 U/L (46-116) Total Protein 6.7 g/dL (6.4-8.2) Albumin 3.3 g/dL (3.4-5.0) L Albumin/Globulin Ratio 1.0 (1.0-1.7) Laboratory Tests 10/15/20 15:39 Laboratory Tests 10/15/20 15:39 Microbiology 10/15/20 Wet Prep - Final, Complete Vital Signs: Vital Signs Date Time Temp Pulse Resp B/P (MAP) Pulse Ox O2 Delivery O2 Flow Rate FiO2 10/15/20 14:36 98.0 104 17 120/76 (91) 98 Room Air 98.0 EKG: EKG: [] Radiology/Procedures: Radiology/Procedures: []PROCEDURE: OB <14 WKS W/TV Exam: Ultrasound OB less than 14 weeks Indication: Vaginal bleeding and Technique: Real-time grayscale and color Doppler images of the pelvis were obtained by the department electrical maintenance man. Comparisons: None FINDINGS: Uterus measures 11.8 x 8.9 x 8.7 cm. Within the endometrium there is a gestational sac with internal yolk sac and pole. [place]-rump length measured at 2.0 cm. No vascular flow or heart rate identified within the pole. There is a moderate-sized perigestational bleed which measures approximately 2.1 x 3.0 x 1.9 cm. Right ovary measures 2.9 by by 2.9 x 3.0 cm. Corpus luteal cyst is noted within the right ovary. Left ovary is not visualized. No free fluid identified in the pelvis. IMPRESSION: Within the endometrium there is a gestational sac with yolk sac and pole. No heart tones are identified within the pole concerning for demise. Additionally there is a moderate-sized perigestational bleed. Recommend correlation serial beta hCG measurements and if necessary short-term follow-up ultrasound. Electronically signed by: Christy Pop MD (10/15/2020 4:49 PM) [facility] DICTATED and SIGNED BY: CHRISTY POP MD DATE: 10/15/20 [id number] 0 Course & Med Decision Making: Course & Med Decision Making Pertinent Labs and Imaging studies reviewed. (See chart for details) This is a 30-year-old female patient presented to the ED today to be evaluated for vaginal bleeding in . See HPI. Last menstrual cycle was in July. Patient had a baby June 2028. Positive urine hCG. CBC with a normal WBC, hemoglobin 11.1 with hematocrit of 34.5. Beta-hCG 81,303. OB ultrasound noted for an IUP with demise at roughly 8 weeks blood type is O+ Spoke to Dr. Cifuentes, patient going for D&C today Marii Disclaimer: Marii Disclaimer: This electronic medical record was generated, in whole or in part, using a voice recognition dictation system. Departure Departure Impression: Primary Impression: demise Disposition: ADMITTED INPATIENT Condition: STABLE Referrals: NO PCP (PCP) KB SLATER VENEER MARKER Oct 15, 2020 16:21
--- NOTE | 2020-10-15 16:51 | RAD ---
Exam: Ultrasound OB less than 14 weeks Indication: Vaginal bleeding and Technique: Real-time grayscale and color Doppler images of the pelvis were obtained by the department vallez filter operator. Comparisons: None FINDINGS: Uterus measures 11.8 x 8.9 x 8.7 cm. Within the endometrium there is a gestational sac with internal yolk sac and pole. [place]-rump length measured at 2.0 cm. No vascular flow or heart rate i dentified within the pole. There is a moderate-sized perigestational bleed which measures approximately 2.1 x 3.0 x 1.9 cm. Right ovary measures 2.9 by by 2.9 x 3.0 cm. Corpus luteal cyst is noted within the right ovary. Left ovary is not visualized. No free fluid identified in the pelvis. IMPRESSION: Within the endometrium there is a gestational sac with yolk sac and pole. No heart tones are identified within the pole concerning for demise. Additionally there is a moderate-si zed perigestational bleed. Recommend correlation serial beta hCG measurements and if necessary short- term follow-up ultrasound. Electronically signed by: Kevin Urena MD (10/15/2020 4:49 PM) [facility]
[2020-10-15] MEDS ORDERED: DOXYCYCLINE HYCLATE 100 MG TABLET PO STA (18:03)
--- NOTE | 2020-10-15 18:14 | PDOC1 ---
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 The pt had performed a test yesterday which returned posit julio. At work today the pt began bleeding heavy so she presented to the ER. In the ER an u/s was performed revealing the following: Within the endometrium there is a gestational sac with yolk sac and pole. No heart tones are identified within the pole concerning for demise. Additionally there is a moderate-sized perigestational bleed. Recommend correlation serial beta hCG measurements and if necessary short-term follow-up ultrasound. The pole was equivalent to a 8.3wk gestation. PMH: Denies PSH: C/S x 3 Meds: None All: NKDA OBHx: TSVD x 2, 36wk twin C/S (one demised), TC/S x1, 34wk C/S, SAB x1 Director Immunology: LMP late July Not on contraception Menarche 13yo / regular periods SH: 1/4 PPD, rare EtOH FH: CHF, CA Medications: Meds: Current Medications Medications (Trade) Dose Ordered Sig/Carl Route PRN Reason Start Time Stop Time Status Last Admin Dose Admin Doxycycline Hyclate (Vibra-Tab) 200 mg 1X STAT PO 10/15/20 18:03 10/15/20 18:07 DC 10/15/20 18:13 Allergies: Coded Allergies: No Known Drug Allergies (Unverified , 11/22/14) Physical Exam: Vital Signs: Vital Signs Date Time Temp Pulse Resp B/P (MAP) Pulse Ox O2 Delivery O2 Flow Rate FiO2 10/15/20 14:36 98.0 104 17 120/76 (91) 98 Room Air 98.0 PE: GENERAL: No apparent distress. Alert and oriented. HEENT: Head normocephalic, atraumatic. NECK: Supple LUNGS: Clear to auscultation. HEART: RRR, S1, S2 present, pulses intact ABDOMEN: Soft, positive bowel sounds. EXTREMITIES: No cyanosis or edema. NEUROLOGIC: Normal speech, normal tone PSYCHIATRIC: Normal affect, normal mood. SKIN: No ulceration. Labs: Laboratory Tests Test 10/15/20 14:23 10/15/20 15:39 Urine Collection Type Unknown Urine Color Red Urine Clarity Cloudy Urine pH 6.0 (<5.0-8.0) Urine Specific [place] 1.025 (1.000-1.030) Urine Protein 100 mg/dL (NEG-TRACE) Urine Glucose (UA) Negative mg/dL (NEG) Urine Ketones (Stick) Trace mg/dL (NEG) Urine Blood Large (NEG) Urine Nitrite Negative (NEG) Urine Bilirubin Negative (NEG) Urine Urobilinogen Dipstick 1.0 mg/dL (0.2 mg/dL) Urine Leukocyte Esterase Small (NEG) Urine RBC Tntc /HPF (0-2) Urine WBC 1-4 /HPF (0-4) Urine Squamous Epithelial Cells Mod /LPF Urine Amorphous Sediment Present /HPF Urine Bacteria Few /HPF (0-FEW) Urine Mucus Marked /LPF Urine Test Positive (NEG) White Blood Count 5.7 x10^3/uL (4.0-11.0) Red Blood Count 4.11 x10^6/uL (3.50-5.40) Hemoglobin 11.1 g/dL (12.0-15.5) L Hematocrit 34.5 % (36.0-47.0) L Mean Corpuscular Volume 84 fL (79-100) Mean Corpuscular Hemoglobin 27 pg (25-35) Mean Corpuscular Hemoglobin Concent 32 g/dL (31-37) Red Cell Distribution Width 19.5 % (11.5-14.5) H Platelet Count 175 x10^3/uL (140-400) Neutrophils (%) (Auto) 50 % (31-73) Lymphocytes (%) (Auto) 40 % (24-48) Monocytes (%) (Auto) 8 % (0-9) Eosinophils (%) (Auto) 2 % (0-3) Basophils (%) (Auto) 1 % (0-3) Neutrophils # (Auto) 2.8 x10^3/uL (1.8-7.7) Lymphocytes # (Auto) 2.2 x10^3/uL (1.0-4.8) Monocytes # (Auto) 0.4 x10^3/uL (0.0-1.1) Eosinophils # (Auto) 0.1 x10^3/uL (0.0-0.7) Basophils # (Auto) 0.0 x10^3/uL (0.0-0.2) Maternal Serum HCG Beta Subunit 50132 mIU/mL (0-5) H Sodium Level 137 mmol/L (136-145) Potassium Level 3.9 mmol/L (3.5-5.1) Chloride Level 106 mmol/L (98-107) Carbon Dioxide Level 25 mmol/L (21-32) Anion Gap 6 (6-14) Blood Urea Nitrogen 10 mg/dL (7-20) Creatinine 0.6 mg/dL (0.6-1.0) Estimated GFR (Cockcroft-Gault) 144.0 BUN/Creatinine Ratio 17 (6-20) Glucose Level 87 mg/dL (70-99) Calcium Level 8.8 mg/dL (8.5-10.1) Total Bilirubin 0.1 mg/dL (0.2-1.0) L Aspartate Amino Transferase (AST) 15 U/L (15-37) Alanine Aminotransferase (ALT) 51 U/L (14-59) Alkaline Phosphatase 75 U/L (46-116) Total Protein 6.7 g/dL (6.4-8.2) Albumin 3.3 g/dL (3.4-5.0) L Albumin/Globulin Ratio 1.0 (1.0-1.7) Laboratory Tests 10/15/20 15:39 Laboratory Tests 10/15/20 15:39 Laboratory Tests 10/15/20 15:39 Assessment & Plan: A/P 30y with SAB and VB 1.) SAB since actively bleeding will perform Suction D&C, will give Doxy 200 PO preop 2.) VB Hgb 11.1 3.) T/S ordered 4.) Contraception none 5.) Prev C/S x 3 6.) Tob use PREET BELLO MD Oct 15, 2020 18:14
[2020-10-15] MEDS ORDERED: IV RINGERS,LACTATED 1000ML 1,000 ML IV SCH (18:15)
[2020-10-15] MEDS ORDERED: MORPHINE SULFATE 2 MG/ML INJ. IVP PRN (18:15)
[2020-10-15] MEDS ORDERED: fentaNYL PF VIAL 100 MCG/2 ML VIAL IVP PRN (18:15)
[2020-10-15] MEDS ORDERED: PROCHLORPERAZINE 10 MG/2 ML VIAL. IVP PRN (18:15)
[2020-10-15] MEDS ORDERED: HYDROmorphone 2 MG/ML VIAL IVP PRN (18:15)
[2020-10-15] MEDS ORDERED: MORPHINE SULFATE 2 MG/ML INJ. IV PRN (18:45)
[2020-10-15] MEDS ORDERED: ONDANSETRON PF 4 MG/2 ML VIAL. IV PRN (18:45)
[2020-10-15] MEDS ORDERED: DOCU-109 PO (20:20)
[2020-10-15] MEDS ORDERED: OXYC1TAB15 PO (20:20)
[2020-10-15] MEDS ORDERED: IBUP-1060 PO (20:20)
--- NOTE | 2020-10-15 20:29 | PDOC4 ---
OPERATIVE NOTE: PreOp Dx: 1.) 8wk AB, 2.) VB PostOp Dx: same Procedure: Suction D&C Surgeon: Greg Bello Anesthesia: LMA EBL: 400 cc Fluids: 850 cc UOP: 100 cc Specimen: POC Complications: None PREET BELLO MD Oct 15, 2020 20:29
[2020-10-15 20:31] LABS: HEMATOCRIT 28.1 % (36.0-47.0); HEMOGLOBIN 9.2 g/dL (12.0-15.5); RED BLOOD COUNT 3.34 x10^6/uL (3.50-5.40); WHITE BLOOD COUNT 6.5 x10^3/uL (4.0-11.0)
[2020-10-15] MEDS ORDERED: KETOROLAC 30 MG/ML VIAL. ONE (20:38)
[2020-10-15] MEDS ORDERED: fentaNYL PF VIAL 100 MCG/2 ML VIAL ONE (20:38)
[2020-10-15] MEDS: fentaNYL PF VIAL 100 MCG/2 ML VIAL IVP PRN ×3 (20:40→21:14)
[2020-10-15] MEDS ORDERED: KETOROLAC 30 MG/ML VIAL. IVP ONE (20:45)
[2020-10-15] MEDS ORDERED: oxyCODONE/APAP 5/325 1 TAB TABLET ONE (21:16)
[2020-10-15 21:20] VITALS: BP 96/52
[2020-10-15] MEDS ORDERED: IBUPROFEN 400 MG TABLET. PO ONE (21:30)
[2020-10-15] MEDS ORDERED: oxyCODONE/APAP 5/325 1 TAB TABLET PO ONE (21:30)
--- NOTE | 2020-10-15 21:49 | OP ---
DATE OF SURGERY: 10/15/2020 PREOPERATIVE DIAGNOSES: 1. An 8-week . 2. Vaginal bleeding. POSTOPERATIVE DIAGNOSES: 1. An 8-week . 2. Vaginal bleeding. PROCEDURE: Suction, dilation and curettage. SURGEON: Jaren Cifuentes MD. ANESTHESIA: LMA. ESTIMATED BLOOD LOSS: 400 mL. FLUIDS: 850 mL. URINE OUTPUT: 100 mL. SPECIMENS: Products of conception. COMPLICATIONS: None. DESCRIPTION OF PROCEDURE: The patient was taken to the operating room, where LMA was placed without difficulty. The patient was prepped and draped in a normal sterile fashion. A posterior weighted-speculum was placed in the vagina and a right angle retractor was used to visualize the anterior lip of the cervix, which was then grasped with a single-tooth tenaculum. Cervix was sufficiently dilated to allow for 12-curved suction curette to be placed. This curette was then advanced to the uterine fundus and the suction was then activated. The curettage was rotated until all products of conception were cleared. This was accomplished in approximately 4 passes. At that point, sharp curetting was performed. There were some products of conception that were veiled with the sharp curetting, so suction curettage was performed once again until all products were cleared. A minimal bleeding was noted by that time. Once that was occurred, sharp curetting was performed one last time until good hemostasis was felt and gritty texture was felt in all 4 quadrants. At that point, the single tooth tenaculum was removed with minimal bleeding at the tenaculum site. Good hemostasis was noted. The patient was taken to the recovery room in stable condition. Doxycycline 200 mg was given prior to the procedure. PARTHA/OMAR DR: Gabriella TID: [id number]
[2020-10-16] MEDS ORDERED: FAMO20TA5 PO (12:46)
[2020-10-16] MEDS ORDERED: DIPH25CA58 PO (12:46)
[2020-10-16] MEDS ORDERED: PRED50TA PO (12:46)
[2020-10-17 00:08] LABS: GC PROBE Negative (Negative)
--- NOTE | 2020-10-17 17:23 | PATHOLOGY ---
[facility] Accession Number: [id number] . 01 Material submitted: . PART A: product of conception - PRODUCTS OF CONCEPTION PART B: endometrium - ENDOMETRIAL CURETTINGS . 01 Clinical history: . 8 WEEK SAB SUCTION D+C DEMISE . 02 Diagnosis: A. Tissue designated "products of conception": - Products of conception, comprised of a few immature chorionic villi focally containing nucleated red blood cells, and predominant segments of decidual tissue and hypersecretory endometrium showing focal hemorrhage, necrosis, and acute inflammation. . B. Endometrial curettings: - Blood clot containing rare segments of deciduoid tissue and few segments of myometrial tissue - no chorionic villi identified. . (JPM:ana; 10/17/2020) MBR 10/17/2020 1543 Local . 02 Electronically signed: . Herman Russo MD, Pathologist NPI- [id number] . 01 Gross description: . A. Received in formalin labeled "Peoples, Kelly and products of conception". Received are multiple hemorrhagic pink-carpenter fibromembranous soft tissue fragments measuring in aggregate 18.0 x 11.0 x 1.5 cm. no parts or chorionic villi are grossly apparent. The specimen is representatively submitted in cassettes A1 thru A3. . B. Received in formalin labeled "Peoples, Kelly and endometrial curettings". Received are multiple hemorrhagic carpenter-brown soft tissue fragments measuring in aggregate 6.5 x 5.5 x 0.4 cm. The specimen is entirely submitted in cassettes B1 thru B5.(BLJ; 10/16/2020) BLJ/BLJ 10/16/2020 2340 Local . 02 Pathologist provided ICD-10: Z3A.08, O36.4XX0 . 02 CPT . 999335, [id number] Specimen Comment: A courtesy copy of this report has been sent to [phone], [phone] Specimen Comment: [id number] Specimen Comment: Report sent to / DR SLATER Performed at: [address] [facility], [place] [id number] MD Ben Gil MD Phone: [phone] Performed at: [facility] [address] [place], [place] [id number] MD Herman Russo MD Phone: [phone]
== END 2020-10-15 21:45 | disposition home or self-care (01) | DRG 770 ==
LOC: ER 14:00 → UNDOADMIN 17:52 → ED HOLD 17:52 → 3 NORTH 19:18 → UNDODISIN 21:45
PROVIDERS: ADMIT Obstetrics & Gynecology; ATTEND Obstetrics & Gynecology
PROC: 10D17ZZ Extraction of Products of Conception, Retained, Via Natural or Artificial Opening (ICD-10-PCS; principal; 2020-10-15 19:00)
DX: O02.1 Missed abortion (principal); Z80.9 Family history of malignant neoplasm, unspecified; Z82.49 Family history of ischemic heart disease and other diseases of the circulatory system; O46.91 Antepartum hemorrhage, unspecified, first trimester; Z20.822 Contact with and (suspected) exposure to COVID-19
CPT/HCPCS: 36415; 76801; 76817; 80053; 81001; 81025; 84702; 85025; 85027; 86850; 86900; 86901; 87086; 87426; 87491; 87591; 96361; 96374; 96375; 96376; A4222; A4322; A4930; J1885; J2405; J3010; J7120; Q0111; U0003; U0005; 99285-25; G0378

== ENCOUNTER 2020-10-16 11:53 | Emergency (ER) | payer MEDICAID ==
[~2020-10-16] VITALS: Ht 165.1 cm; Wt 72.9 kg
[2020-10-16 12:03] VITALS: BP 110/52
[2020-10-16] MEDS ORDERED: predniSONE 20 MG TABLET PO ONE (12:15)
[2020-10-16] MEDS ORDERED: diphenhydrAMINE HCL 25 MG CAPSULE PO ONE (12:15)
[2020-10-16] MEDS ORDERED: FAMOTIDINE 20 MG TABLET. PO ONE (12:15)
[2020-10-16] MEDS ORDERED: PRED50TA PO (12:46)
[2020-10-16] MEDS ORDERED: FAMO20TA5 PO (12:46)
[2020-10-16] MEDS ORDERED: DIPH25CA58 PO (12:46)
--- NOTE | 2020-10-16 12:46 | PHYS DOC ---
Past Medical History Past Medical History: DVT, STD, Other Additional Past Medical Histor: gonorrhea, herpes; trichomoniasis Past Surgical History: , Tonsillectomy, Other Additional Past Surgical Histo: D&C Smoking Status: Current Every Day Smoker Additional Information: 0.25 PPD Alcohol Use: None Drug Use: None General Adult EDM: Chief Complaint: FACE PROBLEM HPI: HPI: Patient is a 30 year old female who presents to the ED today complaining of facial swelling, rash, shortness of breath, symptoms began early this morning, patient states she had a D&C done last night and was put on several medications including codeine. She does not know which medications are making her have this rash. Denies any chest pain. Review of Systems: Review of Systems: Constitutional: Denies fever or chills. [] Eyes: Denies change in visual acuity. [] HENT: Denies nasal congestion or sore throat. [] Respiratory: Reports shortness of breath. Denies cough Cardiovascular: Denies chest pain or edema. [] GI: Denies abdominal pain, nausea, vomiting, bloody stools or diarrhea. [] : Denies dysuria. [] Musculoskeletal: Denies back pain or joint pain. [] Integument: Reports facial rash and swelling Neurologic: Denies headache, focal weakness or sensory changes. [] Endocrine: Denies polyuria or polydipsia. [] Lymphatic: Denies swollen glands. [] Psychiatric: Denies depression or anxiety. [] Heart Score: C/O Chest Pain: N/A Risk Factors: Risk Factors: DM, Current or recent (<one month) smoker, HTN, HLP, family history of CAD, obesity. Risk Scores: Score 0 - 3: 2.5% MACE over next 6 weeks - Discharge Home Score 4 - 6: 20.3% MACE over next 6 weeks - Admit for Clinical Observation Score 7 - 10: 72.7% MACE over next 6 weeks - Early Invasive Strategies Current Medications: Current Medications Medications (Trade) Dose Ordered Sig/Carl Start Time Stop Time Status Last Admin Dose Admin Diphenhydramine HCl (Benadryl) 25 mg 1X ONCE 10/16/20 12:15 10/16/20 12:20 DC 10/16/20 12:25 25 MG Famotidine (Pepcid) 20 mg 1X ONCE 10/16/20 12:15 10/16/20 12:20 DC 10/16/20 12:25 20 MG Prednisone (Prednisone) 60 mg 1X ONCE 10/16/20 12:15 10/16/20 12:20 DC 10/16/20 12:25 60 MG Allergies: Allergies: Allergies Coded Allergies Type Severity Reaction Last Updated Verified No Known Drug Allergies 11/22/14 No Physical Exam: PE: Constitutional: Well developed, well nourished, no acute distress, non-toxic appearance. [] HENT: Normocephalic, atraumatic, bilateral external ears normal, oropharynx moist, no oral exudates, nose normal. [] Eyes: PERRLA, EOMI, conjunctiva normal, no discharge. [] Neck: Normal range of motion, no tenderness, supple, no stridor. [] Cardiovascular:Heart rate regular rhythm, no murmur [] Lungs & Thorax: Bilateral breath sounds clear to auscultation [] Abdomen: Bowel sounds normal, soft, no tenderness, no masses, no pulsatile masses. [] Skin: Mild amount of erythematous rash on patient's face with slight swelling. Airway is open. No angioedema. Back: No tenderness, no CVA tenderness. [] Extremities: No tenderness, no cyanosis, no clubbing, ROM intact, no edema. [] Neurologic: Alert and oriented X 3, normal motor function, normal sensory function, no focal deficits noted. [] Psychologic: Affect normal, judgement normal, mood normal. [] Current Patient Data: Vital Signs: Vital Signs Date Time Temp Pulse Resp B/P (MAP) Pulse Ox O2 Delivery O2 Flow Rate FiO2 10/16/20 12:03 98.5 102 19 110/52 (71) 99 Room Air 98.5 EKG: EKG: [] Radiology/Procedures: Radiology/Procedures: [] Course & Med Decision Making: Course & Med Decision Making Pertinent Labs and Imaging studies reviewed. (See chart for details) This a 30-year-old female patient presenting to the ED today complaining of facial swelling, rash and shortness of breath that began last night. Patient had a D&C last night and was put on several medications, she does not know which of the medications could be causing her the symptoms she has. Vitals on arrival to the ED temperature 98.5, heart rate 102, respiration 18 on room air, blood pressure 110/52. Patient was informed she has a slight risk of a PE with considering she has shortness of breath and had surgery last night. She refused PE work-up. She was given prednisone, Benadryl and Pepcid and discharged home with the same medications. Marii Disclaimer: Marii Disclaimer: This electronic medical record was generated, in whole or in part, using a voice recognition dictation system. Departure Departure Impression: Primary Impression: Shortness of breath Additional Impression: Allergic reaction Qualified Codes: T78.40XA - Allergy, unspecified, initial encounter Disposition: HOME / SELF CARE / HOMELESS Condition: STABLE Referrals: NO PCP (PCP) PREET BELLO MD follow up as as scheduled Patient Instructions: Drug Allergy Additional Instructions: You were evaluated in the emergency room an allergic reaction. Take the prescribed medications as ordered. Please follow-up with your primary care doctor and [facility] next week Scripts Diphenhydramine Hcl (BENADRYL) 25 Mg Capsule 1 CAP PO Q6HRS, #30 CAP 0 Refills Prov: KB SLATER APRN 10/16/20 Famotidine (FAMOTIDINE) 20 Mg Tablet 20 MG PO DAILY, #7 TAB Prov: KB SLATER APRN 10/16/20 Prednisone (PREDNISONE) 50 Mg Tablet 1 TAB PO DAILY, #5 TAB Prov: KB SLATER APRN 10/16/20 KB SLATER APRN Oct 16, 2020 12:46
== END 2020-10-16 12:57 | disposition home or self-care (01) ==
LOC: ER 11:53
DX: T78.40XA Allergy, unspecified, initial encounter (principal); R06.02 Shortness of breath; F17.200 Nicotine dependence, unspecified, uncomplicated; Z86.718 Personal history of other venous thrombosis and embolism; X58.XXXA Exposure to other specified factors, initial encounter
CPT/HCPCS: 99284; J7512; Q0163

== ENCOUNTER 2021-05-03 13:26 | Emergency (ER) | payer MEDICAID ==
[~2021-05-03] VITALS: Ht 157.5 cm; Wt 75.0 kg
[~2021-05-03 13:26] MED LIST changes: -CLIN150C15 PO; +CLIN150C16 PO; +CYCL10TA19 PO; -CYCL10TA2 PO; +DIPH25CA58 PO; -DOXY100C2 PO; +DOXY100C3 PO; +FAMO20TA5 PO
[2021-05-03 16:24] VITALS: BP 124/78
--- NOTE | 2021-05-03 17:01 | PHYS DOC ---
Past Medical History Past Medical History: DVT, STD, Other Additional Past Medical Histor: gonorrhea, herpes; trichomoniasis Past Surgical History: , Tonsillectomy, Other Additional Past Surgical Histo: D&C Smoking Status: Current Every Day Smoker Alcohol Use: None Drug Use: None General Adult EDM: Chief Complaint: RIB PAIN HPI: HPI: Patient is a 31 year old female who presents with cough with right rib burning started for the last 2 days. She has had a headache and fatigue for the last 7 days. Her 9-month-old daughter is COVID-positive. She is fully vaccinated. She states that the pain is worse with movement. She denies any shortness of air, chest pain, nausea, vomiting, diarrhea, fever, numbness or tingling, dizziness, focal weakness, injury, back pain, urinary symptoms. She has a history of gonorrhea, herpes, trichomonas, and D&C, tonsillectomy, smoking. Rates her pain a 6 out of 10. Review of Systems: Review of Systems: Constitutional: Denies fever or chills. [] Eyes: Denies change in visual acuity. [] HENT: Denies nasal congestion or sore throat. [] Respiratory: + cough or denies shortness of breath. [] Cardiovascular: Denies chest pain or edema. [] GI: Denies abdominal pain, nausea, vomiting, bloody stools or diarrhea. [] : Denies dysuria. [] Musculoskeletal: Denies back pain or joint pain. + Right ribs pain [] Integument: Denies rash. [] Neurologic: Denies headache, focal weakness or sensory changes. [] Endocrine: Denies polyuria or polydipsia. [] Lymphatic: Denies swollen glands. [] Psychiatric: Denies depression or anxiety. [] Heart Score: C/O Chest Pain: No Allergies: Allergies: Allergies Coded Allergies Type Severity Reaction Last Updated Verified No Known Drug Allergies 11/22/14 No Physical Exam: PE: Constitutional: Well developed, well nourished, no acute distress, non-toxic appearance. [] HENT: Normocephalic, atraumatic, bilateral external ears normal, oropharynx moist, no oral exudates, nose normal. [] Eyes: PERRLA, EOMI, conjunctiva normal, no discharge. [] Neck: Normal range of motion, no tenderness, supple, no stridor. [] Cardiovascular:Heart rate regular rhythm, no murmur [] Lungs & Thorax: Bilateral breath sounds clear to auscultation. Slight ten derness over right ribs without crepitus or subcutaneous emphysema. [] Abdomen: Bowel sounds normal, soft, no tenderness, no masses, no pulsatile masses. [] Skin: Warm, dry, no erythema, no rash. [] Back: No tenderness, no CVA tenderness. [] Extremities: No tenderness, no cyanosis, no clubbing, ROM intact, no edema. [] Neurologic: Alert and oriented X 3, normal motor function, normal sensory function, no focal deficits noted. [] Psychologic: Affect normal, judgement normal, mood normal. [] Current Patient Data: Vital Signs: Vital Signs Date Time Temp Pulse Resp B/P (MAP) Pulse Ox O2 Delivery O2 Flow Rate FiO2 05/03/21 16:24 98.1 110 18 124/78 (93) 98 Room Air 98.1 EKG: EKG: [] Radiology/Procedures: Radiology/Procedures: [] Impression: [facility] [address] [place] [address] IMAGING REPORT Signed PATIENT: ROSANNA RAMOS RACCOUNT: [id number] : 1990 LOCATION: ER AGE: 31 SEX: F EXAM STATUS: REG ER ORD. PHYSICIAN: ADARSH YOUNG APRN REASON: cough, right rib pain PROCEDURE: RIBS BILAT & PA CXR 4+V PROCEDURE: Bilateral ribs including PA chest 05/03/2021 5:13 PM. INDICATION: Pain after coughing. COMPARISON: Exam of 12/20/2019. FINDINGS: No fracture or other abnormality of the ribs is seen in these views. PA view of the chest shows no infiltrate or effusion. Heart size is normal. IMPRESSION: No apparent rib abnormality. Electronically signed by: No Cha Jr., MD (05/03/2021 5:15 PM) [facility] [place] DICTATED and SIGNED BY: NO CHA Jr, MD DATE: 05/03/21 [id number] Course & Med Decision Making: Course & Med Decision Making Pertinent Labs and Imaging studies reviewed. (See chart for details) See HPI. Alert and oriented x4. Ambulatory with a steady gait. Speaks in full clear sentences. Slight tenderness over right ribs there is no crepitus or subcutaneous emphysema. No bruising or signs of trauma. Lungs are clear to auscultation upper lobes and diminished in lower lobes. Afebrile. Not hypoxic. No respiratory distress. [] Marii Disclaimer: Marii Disclaimer: This electronic medical record was generated, in whole or in part, using a voice recognition dictation system. Departure Departure Impression: Primary Impression: Cough Additional Impression: Rib pain on right side Disposition: HOME / SELF CARE / HOMELESS Condition: STABLE Referrals: NO PCP (PCP) Patient Instructions: Cough, Adult Additional Instructions: Take ibuprofen for your pain. Drink plenty of fluids. If you begin having severe shortness of breath or chest pain that is when he should return to the emergency room. Scripts Albuterol Sulfate (PROAIR HFA INHALER) 8.5 Gm Hfa.aer.ad 1-2 PUFF INH PRN Q6HRS PRN for SHORTNESS OF BREATH, #1 EACH 0 Refills Prov: ADARSH YOUNG APRN 05/03/21 ADARSH YOUNG APRN May 03, 2021 17:01
--- NOTE | 2021-05-03 17:18 | RAD ---
PROCEDURE: Bilateral ribs including PA chest 05/03/2021 5:13 PM. INDICATION: Pain after coughing. COMPARISON: Exam of 12/20/2019. FINDINGS: No fracture or other abnormality of the ribs is seen in these views. PA view of the chest s hows no infiltrate or effusion. Heart size is normal. IMPRESSION: No apparent rib abnormality. Electronically signed by: Yohan Lomas Jr., MD (05/03/2021 5:15 PM) [facility]
[2021-05-03] MEDS ORDERED: ALBU2.5V8 INH (17:21)
== END 2021-05-03 17:46 | disposition home or self-care (01) ==
LOC: ER 13:26
DX: R05.9 Cough, unspecified (principal); R07.81 Pleurodynia; F17.200 Nicotine dependence, unspecified, uncomplicated; Z86.718 Personal history of other venous thrombosis and embolism
CPT/HCPCS: 71111; 99283

== ENCOUNTER 2021-05-19 15:51 | Emergency (ER) | payer MEDICAID ==
[~2021-05-19] VITALS: Ht 160 cm; Wt 73.0 kg
[~2021-05-19 15:51] MED LIST changes: +ALBU2.5V8 INH
[2021-05-19 16:07] VITALS: BP 124/73
[2021-05-19] MEDS: IV NORMAL SALINE 1000ML BAG 1,000 ML IV ONE (16:15)
[2021-05-19] MEDS: ONDANSETRON PF 4 MG/2 ML VIAL. IVP ONE (16:18)
[2021-05-19 17:12] LABS: BILIRUBIN,URINE NEGATIVE (NEG); CLARITY,URINE CLEAR; COLOR,URINE YELLOW; NITRITE,URINE NEGATIVE (NEG); PH,URINE 6.5 (<5.0-8.0); PROTEIN,URINE NEGATIVE (NEG-TRACE)
--- NOTE | 2021-05-19 17:16 | PHYS DOC ---
Past Medical History Past Medical History: DVT, STD, Other Additional Past Medical Histor: gonorrhea, herpes; trichomoniasis, COVID 04/2021 Past Surgical History: , Tonsillectomy, Other Additional Past Surgical Histo: D&C Smoking Status: Current Every Day Smoker Alcohol Use: Occasionally Drug Use: None General Adult EDM: Chief Complaint: SHORTNESS OF BREATH HPI: HPI: Patient is a 31 year old female who presents the ED today complaining of shortness of breath and nausea, she states she was diagnosed with COVID-19 on May 01, 2021 and was doing well until yesterday when she developed increased shortness of breath and nausea. She states her daughter also has COVID19. Denies any fever. Denies any nasal congestion. Denies any chest pain. Review of Systems: Review of Systems: Constitutional: Denies fever or chills. [] Eyes: Denies change in visual acuity. [] HENT: Denies nasal congestion or sore throat. [] Respiratory: Reports shortness of breath Cardiovascular: Denies chest pain or edema. [] GI: Reports nausea. Denies abdominal pain, bloody stools or diarrhea. [] : Denies dysuria. [] Musculoskeletal: Denies back pain or joint pain. [] Integument: Denies rash. [] Neurologic: Denies headache, focal weakness or sensory changes. [] Psychiatric: Denies depression or anxiety. [] Heart Score: C/O Chest Pain: N/A Risk Factors: Risk Factors: DM, Current or recent (<one month) smoker, HTN, HLP, family history of CAD, obesity. Risk Scores: Score 0 - 3: 2.5% MACE over next 6 weeks - Discharge Home Score 4 - 6: 20.3% MACE over next 6 weeks - Admit for Clinical Observation Score 7 - 10: 72.7% MACE over next 6 weeks - Early Invasive Strategies Current Medications: Current Medications Medications (Trade) Dose Ordered Sig/Carl Start Time Stop Time Status Last Admin Dose Admin Ondansetron HCl (Zofran) 4 mg 1X ONCE 05/19/21 16:15 05/19/21 16:16 DC 05/19/21 16:18 4 MG Sodium Chloride 1,000 ml @ 1,000 mls/hr 1X ONCE 05/19/21 16:15 05/19/21 17:14 05/19/21 16:15 1,000 MLS/HR Allergies: Allergies: Allergies Coded Allergies Type Severity Reaction Last Updated Verified amoxicillin Allergy Unknown 05/19/21 Yes Physical Exam: PE: Constitutional: Well developed, well nourished, no acute distress, non-toxic appearance. [] HENT: Normocephalic, atraumatic, bilateral external ears normal, oropharynx moist, no oral exudates, nose normal. [] Eyes: PERRLA, EOMI, conjunctiva normal, no discharge. [] Neck: Normal range of motion, no tenderness, supple, no stridor. [] Cardiovascular:Heart rate regular rhythm, no murmur [] Lungs & Thorax: Bilateral breath sounds clear to auscultation [] Abdomen: Bowel sounds normal, soft, no tenderness, no masses, no pulsatile masses. [] Skin: Warm, dry, no erythema, no rash. [] Back: No tenderness, no CVA tenderness. [] Extremities: No tenderness, no cyanosis, no clubbing, ROM intact, no edema. [] Neurologic: Alert and oriented X 3, normal motor function, normal sensory function, no focal deficits noted. [] Psychologic: Affect normal, judgement normal, mood normal. [] Current Patient Data: Labs: Laboratory Tests Test 05/19/21 16:53 POC Urine HCG, Qualitative Hcg negative (Negative) Vital Signs: Vital Signs Date Time Temp Pulse Resp B/P (MAP) Pulse Ox O2 Delivery O2 Flow Rate FiO2 05/19/21 16:07 97.6 84 12 124/73 (90) 98 Room Air 97.6 EKG: EKG: [] Radiology/Procedures: Radiology/Procedures: []PROCEDURE: CHEST AP ONLY XR CHEST 1V 05/19/2021 5:06 PM INDICATION: Shortness of breath COMPARISON: 05/03/2021 TECHNIQUE: Portable frontal view of the chest is provided. FINDINGS: The cardiomediastinal silhouette is within normal limits. Mild bronchial wall thickening suggestive of nonspecific bronchitis. There are no significant pleural effusions. There is no pulmonary vascular congestion. No pneumothorax. No suspicious osseous abnormality. IMPRESSION: Bronchial wall thickening cyst about nonspecific bronchitis. Electronically signed by: Nithin Moise MD (05/19/2021 5:17 PM) [id number] DICTATED and SIGNED BY: NITHIN MOISE MD DATE: 05/19/21 [id number] Course & Med Decision Making: Course & Med Decision Making Pertinent Labs and Imaging studies reviewed. (See chart for details) This is a 31-year-old female patient presented to the ED today complaining of nausea and shortness of breath, she was diagnosed with COVID19 May 01, 2021 Patient is afebrile, O2 sats 98% on room air and above. Chest x-ray noted for bronchitis. Given a liter of fluid and Zofran in the ED. UA is contaminated wi th squamous cells epithelium. Discharged with albuterol inhaler, prednisone, and instructed to follow-up with PCP in a week Dragon Disclaimer: Dragon Disclaimer: This electronic medical record was generated, in whole or in part, using a voice recognition dictation system. Departure Departure Impression: Primary Impression: COVID Additional Impressions: Bronchitis Shortness of breath Nausea Disposition: HOME / SELF CARE / HOMELESS Condition: STABLE Referrals: NO PCP (PCP) Follow-up with your doctor in 1 week Patient Instructions: Acute Bronchitis, Shortness of Breath, [id number] Additional Instructions: You were seen in the emergency room and noted to have bronchitis, you also have COVID19. Please take the medications provided as ordered. Take Tylenol or Motrin for pain or fever. Rest, push fluids, follow-up with your doctor in 1 week Scripts Prednisone (PREDNISONE) 50 Mg Tablet 1 TAB PO DAILY, #5 TAB Prov: KB SLATER DRUPAL ARCHITECT 05/19/21 Albuterol Sulfate (Proair Hfa) 8.5 Gm Hfa.aer.ad 1 PUFF INH PRN Q6HRS PRN for SHORTNESS OF BREATH, #1 EACH Prov: KB SLATER DRUPAL ARCHITECT 05/19/21 Ondansetron (ONDANSETRON ODT) 4 Mg Tab.rapdis 1 TAB PO PRN Q6-8HRS, #16 TAB Prov: KB SLATER DRUPAL ARCHITECT 05/19/21 Benzonatate (BENZONATATE) 100 Mg Capsule 1 CAP PO TID, #30 CAP Prov: KB SLATER DRUPAL ARCHITECT 05/19/21 KB SLATER DRUPAL ARCHITECT May 19, 2021 17:16
--- NOTE | 2021-05-19 17:20 | RAD ---
XR CHEST 1V 05/19/2021 5:06 PM INDICATION: Shortness of breath COMPARISON: 05/03/2021 TECHNIQUE: Portable frontal view of the chest is provided. FINDINGS: The cardiomediastinal silhouette is within normal limits. Mild bronchial wall thickening suggestive o f nonspecific bronchitis. There are no significant pleural effusions. There is no pulmonary vascular congestion. No pneumothora x. No suspicious osseous abnormality. IMPRESSION: Bronchial wall thickening cyst about nonspecific bronchitis. Electronically signed by: Lissa Moise MD (05/19/2021 5:17 PM) [id number]
[2021-05-19 17:30] LABS: BACTERIA,URINE FEW /HPF (0-FEW)
[2021-05-19 17:31] LABS: RBC,URINE 0 /HPF (0-2)
[2021-05-19] MEDS ORDERED: ALBU2.5V8 INH (18:24)
[2021-05-19] MEDS ORDERED: ONDA4TAB12 PO (18:24)
[2021-05-19] MEDS ORDERED: BENZ-8 PO (18:24)
[2021-05-19] MEDS ORDERED: PRED50TA PO (18:26)
== END 2021-05-19 18:40 | disposition home or self-care (01) ==
LOC: ER 15:51
DX: U07.1 COVID-19 (principal); Z86.718 Personal history of other venous thrombosis and embolism; F17.200 Nicotine dependence, unspecified, uncomplicated; Z88.1 Allergy status to other antibiotic agents; J40 Bronchitis, not specified as acute or chronic
CPT/HCPCS: 71045; 81001; 81025; 87086; 96361; 96374; 99284; J2405; J7030

== ENCOUNTER 2021-07-13 13:40 | Emergency (ER) | payer MEDICAID ==
[~2021-07-13] VITALS: Ht 160 cm; Wt 72.7 kg
[~2021-07-13 13:40] MED LIST changes: +BENZ-8 PO; +ONDA4TAB12 PO
[2021-07-13] MEDS: KETOROLAC 30 MG/ML VIAL. IVP ONE (14:38)
[2021-07-13] MEDS ORDERED: CONTRAST GIVEN. MC PRN (14:45)
[2021-07-13] MEDS: IOHEXOL 350 MG/ML 100 ML VIAL. IV ONE (14:45)
--- NOTE | 2021-07-13 14:46 | PHYS DOC ---
Past Medical History Past Medical History: DVT, STD, Other Additional Past Medical Histor: gonorrhea, herpes; trichomoniasis, COVID 04/2021 Past Surgical History: , Tonsillectomy, Other Additional Past Surgical Histo: D&C Smoking Status: Current Every Day Smoker Alcohol Use: Occasionally Drug Use: None General Adult EDM: Chief Complaint: CHEST PAIN HPI: HPI: Patient is a 31-year-old female that presents today with left chest pain. Patient states that yesterday evening she started developing left chest pain, she said it hurts to take a deep breath, and she said that she has chest pain continuously. Patient denies any shortness of breath, fever chills, or nausea vomiting with this chest pain, she did state that she has had COVID recently in the last 60 days, she states she does smoke and she is on control. Patient states that she had COVID vaccines but no booster, she said she has not had influenza vaccine as well. Review of Systems: Review of Systems: Constitutional: Denies fever or chills. [] Eyes: Denies change in visual acuity. [] HENT: Denies nasal congestion or sore throat. [] Respiratory: Denies cough or shortness of breath. [] Cardiovascular: Denies chest pain or edema. [] GI: Denies abdominal pain, nausea, vomiting, bloody stools or diarrhea. [] : Denies dysuria. [] Musculoskeletal: Denies back pain or joint pain. [] Integument: Denies rash. [] Neurologic: Denies headache, focal weakness or sensory changes. [] Endocrine: Denies polyuria or polydipsia. [] Lymphatic: Denies swollen glands. [] Psychiatric: Denies depression or anxiety. [] Heart Score: C/O Chest Pain: Yes HEART Score for Chest Pain: HEART Score for Chest Pain Response (Comments) Value History Slighlty/Non-Suspicious 0 ECG Normal 0 Age < 45 0 Risk Factors 1 or 2 Risk Factors 1 Troponin < Normal Limit 0 Total 1 Risk Factors: Risk Factors: DM, Current or recent (<one month) smoker, HTN, HLP, family history of CAD, obesity. Risk Scores: Score 0 - 3: 2.5% MACE over next 6 weeks - Discharge Home Score 4 - 6: 20.3% MACE over next 6 weeks - Admit for Clinical Observation Score 7 - 10: 72.7% MACE over next 6 weeks - Early Invasive Strategies Current Medications: Current Medications Medications (Trade) Dose Ordered Sig/[facility] Start Time Stop Time Status Last Admin Dose Admin Ketorolac Tromethamine (Toradol 30mg Vial) 30 mg 1X ONCE 07/13/21 14:15 07/13/21 14:16 DC Allergies: Allergies: Allergies Coded Allergies Type Severity Reaction Last Updated Verified amoxicillin Allergy Unknown 05/19/21 Yes Physical Exam: PE: Constitutional: Well developed, well nourished, no acute distress, non-toxic appearance. [] HENT: Normocephalic, atraumatic, bilateral external ears normal, oropharynx moist, no oral exudates, nose normal. [] Eyes: PERRLA, EOMI, conjunctiva normal, no discharge. [] Neck: Normal range of motion, no tenderness, supple, no stridor. [] Cardiovascular:Heart rate regular rhythm, no murmur [] Lungs & Thorax: Bilateral breath sounds clear to auscultation [] Abdomen: Bowel sounds normal, soft, no tenderness, no masses, no pulsatile masses. [] Skin: Warm, dry, no erythema, no rash. [] Back: No tenderness, no CVA tenderness. [] Extremities: No tenderness, no cyanosis, no clubbing, ROM intact, no edema. [] Neurologic: Alert and oriented X 3, normal motor function, normal sensory function, no focal deficits noted. [] Psychologic: Affect normal, judgement normal, mood normal. [] Current Patient Data: Labs: Laboratory Tests Test 07/13/21 14:32 07/13/21 14:36 Urine Collection Type Unknown Urine Color (Auto) Light yellow Urine Turbidity Clear Urine pH (Auto) 5.5 Urine Specific [place] 1.020 Urine Protein (Auto) Negative mg/dL Urine Glucose (Auto)(UA) Negative mg/dL Urine Ketones (Auto) Negative mg/dL Urine Blood (Auto) Trace Urine Nitrite Negative Urine Bilirubin (Auto) Negative Urine Urobilinogen (Auto) Normal mg/dL Urine Leukocyte Esterase (Auto) Moderate Urine RBC 0 /HPF Urine WBC 20-40 /HPF Urine Squamous Epithelial Cells Many /LPF Urine Bacteria Few /HPF Urine Mucus Marked /LPF Urine Test Negative White Blood Count 4.6 x10^3/uL Red Blood Count 4.66 x10^6/uL Hemoglobin 14.1 g/dL Hematocrit 43.4 % Mean Corpuscular Volume 93 fL Mean Corpuscular Hemoglobin 30 pg Mean Corpuscular Hemoglobin Concent 33 g/dL Red Cell Distribution Width 15.0 % Platelet Count 166 x10^3/uL Neutrophils (%) (Auto) 47 % Lymphocytes (%) (Auto) 43 % Monocytes (%) (Auto) 7 % Eosinophils (%) (Auto) 2 % Basophils (%) (Auto) 0 % Neutrophils # (Auto) 2.2 x10^3/uL Lymphocytes # (Auto) 2.0 x10^3/uL Monocytes # (Auto) 0.3 x10^3/uL Eosinophils # (Auto) 0.1 x10^3/uL Basophils # (Auto) 0.0 x10^3/uL Sodium Level 142 mmol/L Potassium Level 3.6 mmol/L Chloride Level 104 mmol/L Carbon Dioxide Level 29 mmol/L Anion Gap 9 Blood Urea Nitrogen 7 mg/dL Creatinine 0.8 mg/dL Estimated GFR (Cockcroft-Gault) 102.6 BUN/Creatinine Ratio 9 Glucose Level 105 mg/dL Calcium Level 9.3 mg/dL Total Bilirubin 0.2 mg/dL Aspartate Amino Transf (AST/SGOT) 27 U/L Alanine Aminotransferase (ALT/SGPT) 58 U/L Alkaline Phosphatase 85 U/L Troponin I High Sensitivity 5 ng/L Total Protein 7.8 g/dL Albumin 3.8 g/dL Albumin/Globulin Ratio 1.0 Current Medications Medications (Trade) Dose Ordered Sig/Carl Route PRN Reason Start Time Stop Time Status Last Admin Dose Admin Ketorolac Tromethamine (Toradol 30mg Vial) 30 mg 1X ONCE IVP 07/13/21 14:15 07/13/21 14:16 DC 07/13/21 14:38 Iohexol (Omnipaque 350 Mg/ml) 90 ml 1X ONCE IV 07/13/21 14:45 07/13/21 14:46 DC 07/13/21 14:45 Info (CONTRAST GIVEN -- Rx MONITORING) 1 each PRN DAILY PRN MC SEE COMMENTS 07/13/21 14:45 07/15/21 14:44 Vital Signs: Vital Signs Date Time Temp Pulse Resp B/P (MAP) Pulse Ox O2 Delivery O2 Flow Rate FiO2 07/13/21 13:57 98.0 78 18 111/70 (84) 98 Room Air 98.0 Vital Signs Date Time Temp Pulse Resp B/P (MAP) Pulse Ox O2 Delivery O2 Flow Rate FiO2 07/13/21 13:57 98.0 78 18 111/70 (84) 98 Room Air 98.0 EKG: EKG: EKG done at [address] Ramirez at 1359 showed sinus rhythm with no ectopy at a rate of 95 with a DC interval of 140 ms with a QTC of 443, no STEMI [] Radiology/Procedures: Radiology/Procedures: REASON: left sided chest pain PROCEDURE: CT ANGIOGRAPHY CHEST EXAM: CT ANGIOGRAPHY OF THE CHEST WITH AND WITHOUT CONTRAST. HISTORY: Left chest pain. TECHNIQUE: Computed tomographic angiography of the chest was performed before and after the intravenous administration of iodinated contrast. 3-D maximum i ntensity projections were also performed. One or more of the following individualized dose reduction techniques were utilized for this examination: 1. Automated exposure control. 2. Adjustment of the mA and/or kV according to patient size. 3. Use of iterative reconstruction technique. COMPARISON: None. FINDINGS: Images of the upper abdomen reveal no acute abnormality. Bone windows reveal no suspicious lesions. Respiratory motion artifact in the bases limits sensitivity for small peripheral pulmonary emboli. None are seen. There is no aortic dissection or aneurysm. There are no pathologically enlarged mediastinal or axillary lymph nodes. There is no pleural or pericardial effusion. The heart is not enlarged. Lung windows reveal mild basilar atelectasis. There are no infiltrates. IMPRESSION: 1. No evidence of pulmonary embolism. Electronically signed by: Destinee York MD (07/13/2021 3:50 PM) [id number] [] Course & Med Decision Making: Course & Med Decision Making Pertinent Labs and Imaging studies reviewed. (See chart for details) 1559 reviewed radiological and laboratory results with patient, did inform her there is no acute processes found on the results today. Her CT of her chest was negative for any blood clots or pneumonia, and her lab test did not show any cardiac issues at this time. Patient is to see smoking, she will also be given an antibiotic for urinary tract infection due to the increased WBCs and moderate leukoesterase in her urine, and she will need to follow-up with her primary care or one of the listed clinics in her discharge instructions for further management of her chest pain. Patient is instructed to take Tylenol and/or ibuprofen as needed for pain and to return to the emergency department if the pain worsens, she has an increase trouble breathing, or she is unable to keep any by mouth fluids down. Dragon Disclaimer: Dragon Disclaimer: This electronic medical record was generated, in whole or in part, using a voice recognition dictation system. Departure Departure Impression: Primary Impression: Chest pain Qualified Codes: R07.9 - Chest pain, unspecified Additional Impression: UTI (urinary tract infection) Qualified Codes: N30.01 - Acute cystitis with hematuria Disposition: HOME / SELF CARE / HOMELESS Condition: STABLE Referrals: NO PCP (PCP) Patient Instructions: Chest Pain (Nonspecific), Urinary Tract Infection Additional Instructions: Macrobid take 1 tablet twice daily for 7 full days for urinary tract infection Tylenol and/or ibuprofen as needed for chest pain May also use [id number] Lidoderm patches as labeled directed for localized pain relief Follow-up with your primary care or one of the listed clinics below for further management and evaluation of your chest wall pain Return to the emergency department for increased shortness of breath, chest pain that does not go away, inability to keep by mouth fluid down, or development of a fever. Scripts Nitrofurantoin Monohyd/M-Cryst (MACROBID 100 MG CAPSULE) 100 Mg Capsule 1 CAP PO BID for 7 Days, #14 CAP 0 Refills Prov: CHIN HERRERA CLINIC BUSINESS MANAGER 07/13/21 CHIN HERRERA CLINIC BUSINESS MANAGER Jul 13, 2021 14:46
[2021-07-13 15:03] LABS: BASO % 0 % (0-3); EOS # 0.1 x10^3/uL (0.0-0.7); EOS % 2 % (0-3); HEMATOCRIT 43.4 % (36.0-47.0); HEMOGLOBIN 14.1 g/dL (12.0-15.5); LYMPH % 43 % (24-48); MEAN CORPUSCULAR HEMOGLOBIN 30 pg (25-35); MEAN CORPUSCULAR HGB CONC 33 g/dL (31-37); MEAN CORPUSCULAR VOLUME 93 fL (79-100); MONO # 0.3 x10^3/uL (0.0-1.1); MONO % 7 % (0-9); NEUT # 2.2 x10^3/uL (1.8-7.7); NEUT % 47 % (31-73); PLATELET COUNT 166 x10^3/uL (140-400); RED BLOOD COUNT 4.66 x10^6/uL (3.50-5.40); WHITE BLOOD COUNT 4.6 x10^3/uL (4.0-11.0)
[2021-07-13 15:07] LABS: CALCIUM 9.3 mg/dL (8.5-10.1); CREATININE 0.8 mg/dL (0.6-1.0); GFR 102.6; POTASSIUM 3.6 mmol/L (3.5-5.1)
[2021-07-13 15:13] LABS: ALBUMIN 3.8 g/dL (3.4-5.0); TOTAL BILIRUBIN 0.2 mg/dL (0.2-1.0); TOTAL PROTEIN 7.8 g/dL (6.4-8.2)
[2021-07-13 15:20] LABS: BACTERIA,URINE FEW /HPF (0-FEW); RBC,URINE 0 /HPF (0-2); WBC,URINE 20-40 /HPF (0-4)
[2021-07-13 15:22] LABS: U PREG PATIENT NEGATIVE (NEG)
--- NOTE | 2021-07-13 15:41 | EKG ---
[facility] [address] [place] [address] Test Date: 2021-07-13 Test Time: 13:57:00 Pat Name: ROSANNA RAMOS Department: Room: Gender: F Office Specialist: : 1990 Requested By: CHIN HERRERA Order Number: [id number] Reading MD: Norberto Romano Measurements Intervals [place] Rate: 95 P: 42 MI: 140 QRS: 27 QRSD: 66 T: -38 QT: 350 QTc: 443 Interpretive Statements SINUS RHYTHM T ABNORMALITY IN INFERIOR LEADS Electronically Signed On 07-18-2021 21:51:32 CDT by Norberto Romano
--- NOTE | 2021-07-13 15:52 | RAD ---
EXAM: CT ANGIOGRAPHY OF THE CHEST WITH AND WITHOUT CONTRAST. HISTORY: Left chest pain. TECHNIQUE: Computed tomographic angiography of the chest was performed before and after the intraveno us administration of iodinated contrast. 3-D maximum intensity projections were also performed. One o r more of the following individualized dose reduction techniques were utilized for this examination: 1. Automated exposure control. 2. Adjustment of the mA and/or kV according to patient size. 3. Use of iterative reconstruction technique. COMPARISON: None. FINDINGS: Images of the upper abdomen reveal no acute abnormality. Bone windows reveal no suspicious lesions. Respiratory motion artifact in the bases limits sensitivity for small peripheral pulmonary emboli. No ne are seen. There is no aortic dissection or aneurysm. There are no pathologically enlarged mediastinal or axillary lymph nodes. There is no pleural or twan cardial effusion. The heart is not enlarged. Lung windows reveal mild basilar atelectasis. There are no infiltrates. IMPRESSION: 1. No evidence of pulmonary embolism. Electronically signed by: Destinee York MD (07/13/2021 3:50 PM) [id number]
[2021-07-13] MEDS ORDERED: NITR100C62 PO (16:04)
[2021-07-13 16:06] VITALS: BP 108/64
== END 2021-07-13 16:17 | disposition home or self-care (01) ==
LOC: ER 13:40
DX: N30.01 Acute cystitis with hematuria (principal); R07.89 Other chest pain; F17.200 Nicotine dependence, unspecified, uncomplicated; Z88.1 Allergy status to other antibiotic agents
CPT/HCPCS: 36415; 71275; 80053; 81001; 81025; 84484; 85025; 87086; 87147; 93005; 96374; 99285; J1885; Q9967